=== PATIENT | female | born 1940 | race Caucasian/White ===

== ENCOUNTER 2018-01-06 10:36 | Day surgery (SDC) | payer MEDICARE ==
[2017-12-30 12:36] VITALS: BMI 36.6
[~2018-01-06 10:36] MED LIST: LACTATED RINGERS 1,000 ML IV SCH; MOXIFLOXACIN HCL 0.5% DROPS 3 ML BTL OP ONE; TETRACAINE 0.5% OPHTH (PF) DROPS 4 ML BTL OP ONE; TIMOLOL 0.5% OPHTH DROPS 5 ML BTL OP ONE
[2018-01-06] MEDS: CYCLOPENTOLATE 1% OPHTH SOLN 2 ML BTL OP ONE ×3 (12:24→12:40)
[2018-01-06 12:26] VITALS: TEMP 97.6
[2018-01-06] MEDS: PHENYLEPHRINE 2.5% OPHTH DRP 2ML OP NR ×3 (12:27→12:45)
[2018-01-06] MEDS ORDERED: LIDOCAINE 1% 20 ML VIAL (10MG/ML) FOR IV START INTRADERMA ONE (12:29)
[2018-01-06] MEDS ORDERED: DUOVISC KIT (GREEN BOX) INTRAOCULA ONE (13:02)
[2018-01-06] MEDS ORDERED: LIDOCAINE 1% (PF) 10MG/ML VIAL SQ ONE (13:02)
[2018-01-06] MEDS ORDERED: fentaNYL (PF) 50 MCG/ML 2 ML AMP ONE (13:07)
[2018-01-06] MEDS ORDERED: MIDAZOLAM 2 MG/2 ML VIAL ONE (13:07)
[2018-01-06] MEDS ORDERED: EPINEPHrine (PF) 0.3 ML in BALANCED SALT IRRIG SOLN COMB2 500 ML IRRIGATION ONE (13:17)
--- NOTE | 2018-01-06 13:37 | P.OP ---
Date of Procedure: 01/06/18 Preoperative Diagnosis: NS & POAG moderate Postoperative Diagnosis: same Procedure(s) Performed: PIOL & iStent implant OD Implants: PCB00 23.00 & [id number] Anesthesia: MAC Surgeon: Hao Trivedi Estimated Blood Loss (ml): 0 Pathology: none sent Condition: stable Disposition: same day Indications for Procedure: blurry vision and glaucoma Operative Findings: No complications
[2018-01-06 13:49] VITALS: BP 149/86; PULSE 79; RESP 16
--- NOTE | 2018-01-06 20:13 | OP ---
OPERATIVE REPORT DATE OF SURGERY: 06 January 2018. PROCEDURES: Phacoemulsification of cataract and intraocular lens implant of the right eye with an eye stent implantation of the right eye. PREOPERATIVE DIAGNOSES: 1. Nuclear sclerosis. 2. Primary open-angle glaucoma, moderate stage. POSTOPERATIVE DIAGNOSES: 1. Nuclear sclerosis. 2. Primary open-angle glaucoma, moderate stage. SURGEONS: Dr. Hao Trivedi. ANESTHESIA: Topical. ESTIMATED BLOOD LOSS: None. SPECIMEN TAKEN: None. NARRATIVE: After obtaining the appropriate consent, the patient was brought to the operating room. There she was placed on a alarm security or surveillance monitor and prepped and draped in the usual sterile manner. She was approached from her right temporal side and at the 11 o'clock position an MVR blade was used to create a paracentesis port. Through this opening 1% Xylocaine MPF 50:50 mix with balanced salt solution was injected into the anterior chamber. This was followed by stabilization of the anterior chamber with Viscoat. At the 9 o'clock position. A 2.5 mm keratome was used to create a self-sealing corneal flap incision in a Langerman's fashion. The patient was rotated to her left approximately 45 degrees and she was asked to maintain her gaze in that direction. Gonial prism was placed on the patient's cornea and the trabecular meshwork was easily identified. A GlaSykioos model DTS 100 mL eye stent device was passed across the anterior chamber and implanted in the nasal trabecular meshwork. A small amount of blood refluxed from the drainage device as expected. She was then returned to the normal supine position and a cystotome was used to start a continuous tear capsulorrhexis which was completed using the Utrata forceps. Hydrodissection and hydrodelineation of the lens was accomplished with balanced salt solution. Phacoemulsification lens utilizing phaco chop was accomplished in 19.62 seconds at 13% power. Additional Xylocaine MPF was instilled into the anterior chamber. This was followed by removal of the remaining cortex under irrigation aspiration along with careful polishing of the capsule in the capsule vacuum mode. Provisc was then used to stabilize the capsular bag in the anterior chamber and an LEONARDO PCP00 23.0 diopter posterior chamber intraocular lens was then inserted into the capsular bag without difficulty. The remaining viscoelastic was removed from in and around the intra-ocular lens as well as the anterior chamber. The eye was brought to normal intraocular pressure through the paracentesis port with balanced salt solution and the incisions were confirmed watertight. She then received 2 drops of 0.5% timolol followed by 2 drops of moxifloxacin was then lightly patched and shielded in the usual manner. There were no complications from the procedure. She tolerated the procedure well and was returned to outpatient recovery in good condition. MMPREETHI / CAROLYNNN: [id number] /
== END 2018-01-06 14:18 | disposition home or self-care (01) ==
LOC: OR 10:36
PROVIDERS: ATTEND Ophthalmology
DX: H25.13 Age-related nuclear cataract, bilateral (principal); H40.1132 Primary open-angle glaucoma, bilateral, moderate stage; H40.011 Open angle with borderline findings, low risk, right eye; H00.026 Hordeolum internum left eye, unspecified eyelid; H00.023 Hordeolum internum right eye, unspecified eyelid; H52.13 Myopia, bilateral; H52.4 Presbyopia; M19.90 Unspecified osteoarthritis, unspecified site; E07.9 Disorder of thyroid, unspecified; Z85.820 Personal history of malignant melanoma of skin; Z79.890 Hormone replacement therapy; Z79.899 Other long term (current) drug therapy; E66.9 Obesity, unspecified; Z68.36 Body mass index [BMI] 36.0-36.9, adult
CPT/HCPCS: 66984; C1780; C1783; J2250; J0171; J3010; J2001

== ENCOUNTER 2018-01-27 07:09 | Day surgery (SDC) | payer MEDICARE ==
[2018-01-20 14:56] VITALS: BMI 36.6
[~2018-01-27 07:09] MED LIST changes: +HYDROmorphone 1 MG/ML 1 ML SYRINGE IVP PRN; -MOXIFLOXACIN HCL 0.5% DROPS 3 ML BTL OP ONE; -TIMOLOL 0.5% OPHTH DROPS 5 ML BTL OP ONE
[2018-01-27] MEDS: CYCLOPENTOLATE 1% OPHTH SOLN 2 ML BTL OP ONE ×3 (07:47→08:03)
[2018-01-27] MEDS: PHENYLEPHRINE 2.5% OPHTH DRP 2ML OP NR ×3 (07:50→08:07)
[2018-01-27 07:56] VITALS: RESP 16; TEMP 98.5
[2018-01-27] MEDS ORDERED: LIDOCAINE 1% 20 ML VIAL (10MG/ML) FOR IV START INTRADERMA ONE (07:58)
[2018-01-27] MEDS ORDERED: MIDAZOLAM 2 MG/2 ML VIAL ONE (08:54)
[2018-01-27] MEDS ORDERED: fentaNYL (PF) 50 MCG/ML 2 ML AMP ONE (08:54)
[2018-01-27] MEDS ORDERED: EPINEPHrine (PF) 0.3 ML in BALANCED SALT IRRIG SOLN COMB2 500 ML IRRIGATION ONE (08:57)
[2018-01-27] MEDS ORDERED: BALANCED SALT IRRIG SOLN COMB2 15 ML IRRIG.SOLN IRRIGATION ONE ×2 (08:58→09:04)
[2018-01-27] MEDS ORDERED: LIDOCAINE 1% (PF) 10MG/ML VIAL MISCELLANE ONE ×2 (08:59→09:04)
[2018-01-27] MEDS: TIMOLOL 0.5% OPHTH DROPS 5 ML BTL OP ONE ×2 (08:59→09:04)
[2018-01-27] MEDS ORDERED: DUOVISC KIT (GREEN BOX) INTRAOCULA ONE ×2 (08:59→09:04)
[2018-01-27] MEDS: MOXIFLOXACIN HCL 0.5% DROPS 3 ML BTL OP ONE ×2 (09:00→09:04)
[2018-01-27 09:33] VITALS: BP 136/80
[2018-01-27 09:54] VITALS: PULSE 83
--- NOTE | 2018-01-27 10:03 | P.OP ---
Date of Procedure: 01/27/18 Preoperative Diagnosis: NS & POAG moderate stage Postoperative Diagnosis: same Procedure(s) Performed: PIOL & iStent implant OS Implants: PCB00 22.50 & [id number] Anesthesia: MAC Surgeon: Hao Trivedi Estimated Blood Loss (ml): 0 Pathology: none sent Condition: stable Disposition: same day Indications for Procedure: blurry vision Operative Findings: no complications
--- NOTE | 2018-01-27 16:11 | OP ---
OPERATIVE REPORT DATE OF SURGERY: January 27, 2018. PROCEDURE PERFORMED: Phacoemulsification of cataract and intraocular lens implant of the left eye with eye stent implantation, left eye. PREOPERATIVE DIAGNOSES: Nuclear sclerosis with primary open-angle glaucoma, moderate stage. POSTOPERATIVE DIAGNOSES: Nuclear sclerosis with primary open angle glaucoma, moderate stage. SURGEON: Dr. Hao Trivedi. ANESTHESIA: Topical. ESTIMATED BLOOD LOSS: Less than 5 mL. SPECIMEN: Taken none. NARRATIVE: After obtaining the appropriate consent, the patient was brought to the operating room. There she was placed under cardiac monitoring, prepped and draped in the usual sterile manner. She was approached from her left temporal side and at the 5 o'clock position an MVR blade was used to create a paracentesis port. Through this opening, 1% Xylocaine MPF 50 50 mix of balanced salt solution was injected into the anterior chamber. This was followed by stabilization of the anterior chamber with Viscoat. At the 3 o'clock position, a 2.5 mm keratome was used to create a self-sealing corneal flap incision in a Langerman's fashion. Small amount of Viscoat was also placed on the patient's cornea. The patient was then asked to rotate her head approximately 45 degrees to her right to maintain a steady gaze in that direction. A gonio prism was placed on the patient's eye and the trabecular meshwork was easily identified. A Gla[employer]os eye stent model GTS 100 mL was passed across the anterior chamber and imbedded in the nasal trabecular meshwork without difficulty. She was then rotated back to the normal supine position and a cystotome was used to start a continuous tear capsulorrhexis which was then completed using the Utrata forceps. Hydrodissection and hydrodelineation of the lens was accomplished with balanced salt solution. Phacoemulsification lens utilizing phaco chop was accomplished in 16.48 seconds at 13% power. Additional Xylocaine MPF was instilled into the anterior chamber. This was followed by removal of the remaining cortex under irrigation and aspiration as well as careful polishing of the posterior capsule in the capsule vacuum mode. Provisc was then used to stabilize the capsular bag and an LEONARDO PCB 0 0 22.5 diopter posterior chamber intraocular lens was then injected into the capsular bag without difficulty. The remaining viscoelastic was then removed from in and around the intra-ocular lens as well as the anterior chamber. The eye was brought to normal intraocular pressures through the paracentesis port. The wounds were hydrated with balanced salt solution and she then received 2 drops of moxifloxacin as well as 0.5% timolol. She was then lightly patched and shielded in the usual manner. There were no complications from the procedure. She tolerated the procedure well, was returned to outpatient recovery in good condition. RABIA / CAROLYNNN: [id number] /
== END 2018-01-27 10:20 | disposition home or self-care (01) ==
LOC: OR 07:09
PROVIDERS: ATTEND Ophthalmology
DX: H25.12 Age-related nuclear cataract, left eye (principal); H40.1132 Primary open-angle glaucoma, bilateral, moderate stage; Z96.1 Presence of intraocular lens; H00.026 Hordeolum internum left eye, unspecified eyelid; H00.023 Hordeolum internum right eye, unspecified eyelid; H52.10 Myopia, unspecified eye; H52.4 Presbyopia; J45.909 Unspecified asthma, uncomplicated; E78.5 Hyperlipidemia, unspecified; E07.9 Disorder of thyroid, unspecified; Z85.820 Personal history of malignant melanoma of skin; Z85.828 Personal history of other malignant neoplasm of skin; Z79.890 Hormone replacement therapy; Z79.899 Other long term (current) drug therapy; Z79.1 Long term (current) use of non-steroidal anti-inflammatories (NSAID); Z79.51 Long term (current) use of inhaled steroids
CPT/HCPCS: 0191T; 66984

== ENCOUNTER → 2018-04-19 | Outpatient (CLI) | payer MEDICARE ==
[2018-04-19 17:11] LABS: Basophils # (A) 0.1 k/uL (0-0.2); Basophils % (A) 1 %; Eosinophils # (A) 0.3 k/uL (0-0.7); Eosinophils % (A) 3 %; HCT 41.8 % (34.0-46.0); HGB 13.7 gm/dL (11.4-16.0); Lymphocytes # (A) 1.3 k/uL (1.0-4.8); Lymphocytes % (A) 11 %; MCH 32.4 pg (25.0-35.0); MCHC 32.8 g/dL (31.0-37.0); MCV 98.6 fL (80.0-100.0); Mean Platelet Volume 7.7; Monocytes # (A) 0.9 k/uL (0-1.0); Monocytes % (A) 7 %; Neutrophils # (A) 9.6 k/uL (1.3-7.7); Neutrophils % (A) 78 %; Platelet Count 226 k/uL (150-450); RBC 4.24 m/uL (3.80-5.40); RDW 13.9 % (11.5-15.5); WBC 12.4 k/uL (3.8-10.6)
== END | disposition home or self-care (01) ==
LOC: LABPAT 16:40
PROVIDERS: ATTEND Obstetrics & Gynecology
DX: Z01.818 Encounter for other preprocedural examination (principal); Z78.0 Asymptomatic menopausal state
CPT/HCPCS: 36415; 85025; 93005

== ENCOUNTER 2018-05-03 08:57 | Day surgery (SDC) | payer MEDICARE ==
[2018-04-23 12:08] VITALS: BMI 37.5
--- NOTE | 2018-04-26 09:11 | HP ---
HISTORY AND PHYSICAL H and P for surgery tomorrow on the . This is a 77-year-old white female 4, para 4-0-0-4, who presents with postmenopausal bleeding. The patient reports somewhat heavy vaginal bleeding containing clots for approximately 5 days. She has had endometrial evaluation for this condition in the past, Pathology returning weakly proliferative tissue with focal disorder. She has been treated with cyclic progesterone, Prometrium 200 mg, 2 weeks on 2 weeks off. The bleeding however has reoccurred, and for this reason, we are electing to proceed with hysteroscopy and D and C. REVIEW OF SYSTEMS: Review of systems is otherwise negative. PAST MEDICAL HISTORY: Past medical history is significant for asthma, melanoma, postmenopausal bleeding for approximately 5 years and hypertension. PAST SURGICAL HISTORY: Office endometrial biopsies, hysteroscopy, D and C, melanoma excision, and knee surgery. CURRENT MEDICATIONS: 1. Benadryl 25 mg at night. 2. Ibuprofen twice daily as needed. 3. Levothyroxine 50 mcg daily. 4. Lovastatin 20 mg with her evening meal. 5. Mevacor daily. 6. Vitamin D daily. 7. Zyrtec 10 mg as needed. ALLERGIES: Allergies include LIPITOR to which she reports muscle pain. FAMILY HISTORY: Family history is significant for colon cancer, breast cancer, mitral valve prolapse. REPRODUCTIVE HISTORY: Significant for normal spontaneous vaginal deliveries x4, unremarkable with healthy children. SOCIAL HISTORY: Patient drinks social alcohol. She is a former tobacco smoker. She denies other drug use. PHYSICAL EXAMINATION: On exam, this is a pleasant white female, 212 pounds, 5 feet 1 inch, BMI 40. Blood pressure 132/84. HEENT exam reveals reasonably good dentition, no thyromegaly, no cervical lymphadenopathy. Breasts are symmetric bilaterally, no obvious lesions, masses, defects, or nipple discharge. Chest is clear to auscultation in all robertson anteriorly and posteriorly. Cardiac exam reveals a regular rate and rhythm with no murmur, click, or rub. Abdomen is soft, nontender, no organosplenomegaly, active bowel sounds. No CVA tenderness. Extremities reveal 2+ reflexes bilaterally, reasonably good range of motion. Pelvic exam reveals atrophic cervix, small anteverted anteflexed uterus, negative adnexa bilaterally. IMPRESSION: Postmenopausal bleeding with a long history of same. PLAN: We will proceed with diagnostic hysteroscopy, D and C of the uterine cavity. All questions answered. Risks of bleeding, infection, perforation or damage to bowel, bladder, ureters, or any pelvic or abdominal organs have all been reviewed. Second opinion offered and declined. MMODL / IJN: [id number] /
[~2018-05-03 08:57] MED LIST changes: +DEXAMETHASONE SOD PHOSPHATE 10 MG/ML 1 ML VIAL IV ONE; +HYDROmorphone 0.5 MG/0.5 ML SYRINGE IVP PRN; -HYDROmorphone 1 MG/ML 1 ML SYRINGE IVP PRN; +MIDAZOLAM (PF) 2 MG/2 ML VIAL IV PRN; +ONDANSETRON 4 MG/2 ML VIAL IVP ONE; +Pre Op ABX Message 1 EACH MISC MISCELLANE ONE; -TETRACAINE 0.5% OPHTH (PF) DROPS 4 ML BTL OP ONE; +ceFAZolin IN SWFI 2 GM/20 ML SYRINGE IVP ONE
[2018-05-03] MEDS ORDERED: fentaNYL (PF) 50 MCG/ML 2 ML AMP ONE (10:33)
[2018-05-03] MEDS ORDERED: MIDAZOLAM 2 MG/2 ML VIAL ONE (10:33)
[2018-05-03] MEDS ORDERED: LIDOCAINE 1% INJ 10MG/ML (20 ML MDV) ONE (10:33)
[2018-05-03] MEDS ORDERED: ACETAMINOPHEN IV (For NPO) 1,000 MG/100 ML VIAL ONE (10:33)
[2018-05-03] MEDS ORDERED: PROPOFOL 10 MG/ML 20 ML VIAL IV ONE (10:33)
--- NOTE | 2018-05-03 10:55 | P.OP ---
Date of Procedure: 05/03/18 Preoperative Diagnosis: Postmenopausal bleeding, thickened endometrium sonographically Postoperative Diagnosis: Endometrial polyp, final pathology pending. Grade 2 rectocele. Procedure(s) Performed: Hysteroscopy, dilatation and curettage of the uterine cavity Anesthesia: ANGELICA Surgeon: Macie Cadet Estimated Blood Loss (ml): 5 IV fluids (ml): 300 Urine output (ml): 100 Pathology: other (Endometrial curettings) Condition: stable Disposition: PACU Indications for Procedure: Postmenopausal bleeding, endometrium thickened on sonographic evaluation Description of Procedure: Patient is brought to the operating suite and placed in the dorsal lithotomy position after general anesthetic is administered. The cervix, vagina, perineal bodies are all prepped and draped in the usual sterile fashion. The appropriate timeout is performed to assure proper patient and procedural identification. Antibiotics are not deemed necessary. Bladder is drained with a red New catheter for approximately 100 mL of clear yellow urine. Speculum was placed into the vagina and the anterior lip of the cervix is grasped with a double-tooth tenaculum. Uterus sounds to a depth of 9 cm in the anteverted position. The cervix is gently and systematically dilated with Hanks dilators. The hysteroscope was placed and the cavity is distended with sterile saline. Inspection of the cavity reveals an endometrial polyp at 12 o'clock. Bilateral ostia are negative. Hysteroscope was removed. A medium sharp curette is used and the cavity is thoroughly and systematically curettaged. A small polyp is noted and sent to pathology for evaluation. The hysteroscope was once again introduced and the cavity is noted to be clean and dry. All sponge needle and enhancement counts are correct. All sponge needle and enhancement counts are correct at the end of the procedure. O firm it is given to aid in postoperative analgesia. Patient is brought back to recovery room in very good condition with stable vital signs including a pulse of 80, blood pressure 129/67. She will follow-up with me in the office in 2 weeks.
[2018-05-03 11:24] VITALS: TEMP 97.7
[2018-05-03 12:32] VITALS: BP 116/63; PULSE 90; RESP 20
== END 2018-05-03 12:53 | disposition home or self-care (01) ==
LOC: OR 08:57
PROVIDERS: ATTEND Obstetrics & Gynecology
DX: N84.0 Polyp of corpus uteri (principal); N81.6 Rectocele; J45.909 Unspecified asthma, uncomplicated; I10 Essential (primary) hypertension; E07.9 Disorder of thyroid, unspecified; M19.90 Unspecified osteoarthritis, unspecified site; Z79.890 Hormone replacement therapy; Z79.899 Other long term (current) drug therapy; Z79.51 Long term (current) use of inhaled steroids; Z88.8 Allergy status to other drugs, medicaments and biological substances; Z85.820 Personal history of malignant melanoma of skin; Z85.3 Personal history of malignant neoplasm of breast; Z87.891 Personal history of nicotine dependence
CPT/HCPCS: 88305; 58558; J2250; J1100; J2405; J2001; J3010; J2704

== ENCOUNTER → 2018-07-15 | Outpatient (CLI) | payer MEDICARE ==
[2018-07-15 16:52] LABS: HCT 41.6 % (34.0-46.0); HGB 13.3 gm/dL (11.4-16.0); MCH 31.2 pg (25.0-35.0); MCHC 31.8 g/dL (31.0-37.0); Mean Platelet Volume 7.9; Platelet Count 258 k/uL (150-450); RBC 4.25 m/uL (3.80-5.40); RDW 14.2 % (11.5-15.5); WBC 8.9 k/uL (3.8-10.6)
[2018-07-15 16:54] LABS: Appearance,Urine Cloudy (Clear); Bilirubin,Urine Negative (Negative); Blood,Urine Large (Negative); Color,Urine Yellow; Glucose,Urine (UA) Negative (Negative); Ketones,Urine 1+ (Negative); Leukocyte Esterase,Urine Small (Negative); Mucus,Urine Rare /hpf; Nitrite,Urine Negative (Negative); PH, Urine 5.5 (5.0-8.0); Protein,Urine 1+ (Negative); RBC,Urine 41 /hpf (0-5); Specific Gravity,Urine 1.028 (1.001-1.035); Squamous Epithelial Cell,Urine 7 /hpf (0-4); WBC,Urine 3 /hpf (0-5)
[2018-07-15 16:59] LABS: INR 0.9 (<1.2); Partial Thromboplastin Time 23.1 sec (22.0-30.0); Potassium 4.4 mmol/L (3.5-5.1); Prothrombin Time 10.1 sec (9.0-12.0)
== END ==
LOC: LABPAT 15:38
PROVIDERS: ATTEND Orthopaedic Surgery
DX: Z01.812 Encounter for preprocedural laboratory examination (principal); I77.1 Stricture of artery
CPT/HCPCS: 36415; 80051; 81001; 82565; 84520; 85027; 85610; 85730; 87070

== ENCOUNTER 2018-07-26 07:00 | Inpatient (IN) | payer MEDICARE ==
[2018-07-19 11:43] VITALS: BMI 37.1
[2018-07-27] MEDS ORDERED: ceFAZolin IN SWFI 2 GM/20 ML SYRINGE IVP ONE (05:00)
[2018-07-27] MEDS ORDERED: ACETAMINOPHEN TAB 500 MG TAB PO ONE (05:00)
[2018-07-27] MEDS ORDERED: MELOXICAM 7.5 MG TAB PO ONE (05:00)
[2018-07-27] MEDS ORDERED: TRANEXAMIC ACID 1,000 MG in SODIUM CHLORIDE 0.9% 100 ML IVPB ONE ×4 (05:00)
[2018-07-27] MEDS ORDERED: ONDANSETRON 4 MG/2 ML VIAL IVP ONE (05:16)
[2018-07-27] MEDS ORDERED: SCOPOLAMINE 1.5MG/72HR PATCH TRANSDERM ONE (05:16)
[2018-07-27] MEDS ORDERED: HYDROmorphone 0.5 MG/0.5 ML SYRINGE IVP PRN ×4 (05:16→11:19)
[2018-07-27] MEDS ORDERED: DEXAMETHASONE SOD PHOSPHATE 10 MG/ML 1 ML VIAL IV ONE (05:16)
[2018-07-27] MEDS ORDERED: MIDAZOLAM 2 MG/2 ML VIAL IV PRN (05:16)
[2018-07-27] MEDS ORDERED: LIDOCAINE 1% 20 ML VIAL (10MG/ML) FOR IV START INTRADERMA PRN (05:16)
[2018-07-27] MEDS ORDERED: ROPIVACAINE 246.25 MG, EPINEPHrine 0.5 MG, KETOROLAC 30 MG, cloNIDine HCL/PF 80 MCG, WA... MISCELLANE ONE ×5 (06:00)
[2018-07-27] MEDS: LACTATED RINGERS 1,000 ML IV SCH ×3 (08:02→22:23)
[2018-07-27] MEDS ORDERED: MIDAZOLAM (PF) 2 MG/2 ML VIAL IV ONE (08:19)
[2018-07-27] MEDS ORDERED: ROPIVACAINE 1,100 MG, SODIUM CHLORIDE 0.9% 500 ML 330 ML MISCELLANE PRN ×2 (08:47)
--- NOTE | 2018-07-27 08:49 | P.ONQ ---
Anesthesiology Proc Note - PNB - Peripheral Nerve Block Performed Left Adductor Canal Infusion Time Out Performed: Yes Procedure Start Time: :21 Procedure Stop Time: :32 Indication: Acute Post-Operative Pain, Requested by physician Sedation Type: Sedate with meaningful contact maintained Preparation: Sterile Dressing Position: Supine Catheter: Indwelling Needle Types: On-Q Needle Size: 100mm (4") Needle Gauge: 21 Technique: Ultrasound (ropi .5% 20cc) Blood Aspirated: No Pain Paresthesia on Injection Noted: No Resistance on Injection: Normal Events: Uneventful and Well Tolerated
[2018-07-27] MEDS ORDERED: TRANEXAMIC ACID 1,000 MG/10 ML VIAL ONE (09:30)
[2018-07-27] MEDS ORDERED: SODIUM CHLORIDE 0.9% 100 ML BAG ONE (09:30)
[2018-07-27] MEDS ORDERED: GLYCOPYRROLATE 0.2 MG/ML 2 ML VIAL ONE (09:30)
[2018-07-27] MEDS ORDERED: PROPOFOL 10 MG/ML 20 ML VIAL IV ONE (09:30)
[2018-07-27] MEDS ORDERED: MIDAZOLAM 2 MG/2 ML VIAL ONE (09:30)
[2018-07-27] MEDS ORDERED: diphenhydrAMINE 50 MG/ML 1 ML VIAL ONE (09:30)
[2018-07-27] MEDS ORDERED: fentaNYL (PF) 50 MCG/ML 2 ML AMP ONE (09:30)
[2018-07-27] MEDS ORDERED: KETAMINE 10 MG/ML 20 ML VIAL ONE (09:30)
[2018-07-27] MEDS ORDERED: ceFAZolin 3,000 MG in SODIUM CHLORIDE 0.9% IRRIGATIO 3,000 ML IRRIGATION ONE (09:35)
[2018-07-27] MEDS ORDERED: LACTATED RINGERS 1,000 ML IV ONE (10:52)
--- NOTE | 2018-07-27 11:02 | P.OP ---
Date of Procedure: 07/27/18 Preoperative Diagnosis: Severe osteoarthritis left knee Postoperative Diagnosis: Severe osteoarthritis left knee Procedure(s) Performed: Left total knee arthroplasty Implants: Rob and Nephew Journey II CR Oxinium cruciate retaining femoral component size 5, left Rob & Nephew Journey left nonporous tibial baseplate size 4 Rob [employer] Nephew Journey II, XLPE Deep Dished articular insert, size 9 mm, Size 3- 4 left Rob & Nephew Journey BCS resurfacing oval patellar component, 29 mm All components were cemented using Palacos R bone cement.. The articulation is Oxinium on polyethylene. Anesthesia: spinal Surgeon: Edilberto Munguia Clothing Designer #1: Tessie Rodriguez Estimated Blood Loss (ml): 25 Pathology: other (Bone and cartilage) Condition: stable Disposition: PACU Indications for Procedure: After failure of conservative treatment we discussed the surgical and nonsurgical treatment options at length. Patient wishes to proceed with a total knee arthroplasty. Complications specific to this procedure were discussed at length, including but not limited to infection, bleeding, stiffness, and nerve injury. Patient is aware of all these complications and informed consent was obtained Operative Findings: The operative findings are consistent with severe osteoarthritis of the left knee Description of Procedure: Patient was seen in the preoperative area consent was reviewed and operative site was marked with a skin marker. An adductor canal pain catheter was placed by anesthesia in the preoperative area. Patient was then brought to the operating room and given preoperative antibiotics intravenously. A spinal anesthetic was administered by the anesthesia department. A tourniquet was placed on the upper thigh and the lower extremity was prepped and draped in usual sterile fashion. A gram of transexamic acid was given. A universal timeout was then performed which confirmed the patient's name, surgical site, ALLERGIES, and consent. The lower extremity was then exsanguinated and tourniquet was inflated to 250 mmHg. A standard and anterior midline approach to the knee was performed. The skin and subcutaneous tissue was dissected down to the patellar tendon. A medial parapatellar arthrotomy was then performed. The knee was then extended, the patellar was everted, and the knee was again flexed. Anterior horns of both menisci were excised, and a release was performed to the posterior medial aspect of the knee. On gross visual inspection, there was complete loss of articular cartilage in the medial and patellofemoral joint spaces. There was also significant cartilage damage in the lateral compartment. There were multiple periarticular osteophytes which were then removed with a Ronguer. The femoral canal was then opened with the appropriate drill, and the intramedullary femoral cutting guide was then placed and set for 5 of valgus. The distal femoral cutting block was then pinned in place, and the distal femur was then cut. The cutting block was then removed and the cut was checked for flatness. Next, the sizing guide was then placed and set for 3 external rotation based off of the epicondylar axis and Whitesides line. After the femur was sized, the appropriate 4-in-1 cutting block was then pinned in place. The anterior condyles were cut without notching. The posterior and chamfer cuts were performed while protecting the collateral ligaments. The cutting block was then removed, and the femoral canal was plugged with autologous bone. Attention was then directed to the tibia. The remaining ACL was removed with a Ronguer, and the tibia was then gently subluxed forward with a large bent knee retractor. Any remaining menisci was excised. The posterior lateral corner was cauterized in order to cauterize the lateral geniculate artery. The extra medullary tibial cutting guide was then placed, set for the appropriate rotation, slope, and depth of resection. The proximal tibia cutting guide was then pinned in place. Proximal tibia was then cut and sized. Next trials were then placed with the appropriate-sized insert. The knee was able to fully extend and flex to 130 and was stable throughout all range of motion. The knee was then extended, patella everted. Patella was then measured, and then using an osteotomy guide, the patella was cut at the appropriate level. The patella was then measured and drilled and the patella trial was then placed. The knee was then taken through range of motion with the patella trial and the patella tracked normally. The knee was then extended patella trial was then removed and the patella was everted. Knee was then flexed and lug holes were drilled through the femoral trial and the femoral trial was then removed. The tibial was then exposed, and the tibial broach guide was then pinned in place after it was set for the appropriate rotation to allow for the most coverage without overhang. The tibia was then reamed and broached. The cut surfaces of bone were then irrigated with pulsatile lavage. The posterior structures were injected with the ropivacaine solution. The knee was also irrigated with Irrisept solution. The components were then opened, the cement was mixed, and the components were then cemented in place. The cement was allowed to harden with the knee in full extension. While the cement was hardening, the remaining soft tissues were then injected with a ropivacaine solution, which consisted of 246.25 mg of ropivacaine, 0.5 mg of epinephrine, 30 mg of Toradol, 80 g of clonidine, and 48.45 mL of sterile water, for a total of 100 mL of fluid injected. After the cemented hardened. The tourniquet was released, and hemostasis was obtained. A second gram of transexamic acid was given. The knee was again irrigated. The knee was again taken through range of motion and found to be stable throughout all range of motion of 0-130, and the patella tracked normally. The fascia was then closed with #2 strata fix suture. The subcutaneous tissue was closed with 3-0 Vicryl and 3-0 strata fix. Dermabond glue was used for the skin and placed with the knee in flexion. The patient was placed in a sterile silver dressing. Patient was then transferred to recovery room in stable condition. The treasury assistant Tessie Rodriguez NP was required due the complexity surgery and the need for a skilled regional vice president surgical sales. She assisted in positioning, draping, retraction, and closure of the wound.
[2018-07-27] MEDS ORDERED: hydrOXYzine PAMOATE 25 MG CAP PO PRN (11:19)
[2018-07-27] MEDS ORDERED: MAGNESIUM HYDROXIDE 2,400 MG/10 ML CUP PO PRN (11:19)
[2018-07-27] MEDS ORDERED: ONDANSETRON 4 MG/2 ML VIAL IVP PRN (11:19)
[2018-07-27] MEDS ORDERED: HYDROcodone/APAP 5-325MG 1 EACH TAB PO PRN (11:19)
[2018-07-27] MEDS ORDERED: BISACODYL 10 MG SUPP RECTAL PRN (11:19)
[2018-07-27] MEDS ORDERED: TEMAZEPAM 15 MG CAP PO PRN (11:19)
[2018-07-27] MEDS ORDERED: NALOXONE 0.4 MG/ML 1 ML VIAL IV PRN (11:19)
--- NOTE | 2018-07-27 12:10 | XR ---
EXAMINATION TYPE: XR knee limited LT DATE OF EXAM: 07/27/2018 COMPARISON: NONE HISTORY: 77-year-old female evaluation for postoperative abnormality and alignment TECHNIQUE: 2 views FINDINGS: Images show placement of left total knee arthroplasty. Both distal femoral and proximal tibial compon ents of the prosthesis are well seated without periprosthetic fracture. Alignment grossly anatomic. A nterior soft tissue swelling as well as intra-articular air and joint effusion compatible with recent operation. IMPRESSION: Uncomplicated postoperative appearance left total knee arthroplasty.
[2018-07-27] MEDS: HYDROcodone/APAP 5-325MG 1 EACH TAB PO PRN ×2 (16:03→20:11)
[2018-07-27] MEDS: ceFAZolin IN SWFI 2 GM/20 ML SYRINGE IVP SCH (18:17)
[2018-07-27] MEDS ORDERED: SENNOSIDES-DOCUSATE SODIUM 1 EACH TAB PO SCH (21:00)
[2018-07-28] MEDS: HYDROcodone/APAP 5-325MG 1 EACH TAB PO PRN ×3 (01:06→09:10)
[2018-07-28] MEDS: ceFAZolin IN SWFI 2 GM/20 ML SYRINGE IVP SCH (01:07)
[2018-07-28 07:46] VITALS: BP 125/70; PULSE 86; RESP 16; TEMP 98.6
[2018-07-28 08:01] LABS: Basophils % (A) 0 %; Eosinophils % (A) 0 %; HCT 35.7 % (34.0-46.0); HGB 11.6 gm/dL (11.4-16.0); Lymphocytes # (A) 0.8 k/uL (1.0-4.8); Lymphocytes % (A) 7 %; MCH 32.2 pg (25.0-35.0); MCHC 32.5 g/dL (31.0-37.0); Mean Platelet Volume 7.9; Monocytes # (A) 0.8 k/uL (0-1.0); Monocytes % (A) 7 %; Neutrophils # (A) 9.4 k/uL (1.3-7.7); Neutrophils % (A) 85 %; Platelet Count 196 k/uL (150-450); RDW 13.8 % (11.5-15.5); WBC 11.1 k/uL (3.8-10.6)
--- NOTE | 2018-07-28 08:27 | P.DS ---
Providers Date of admission: 07/27/18 07:14 Expected date of discharge: 07/28/18 Attending physician: Edilberto Munguia Consults: 07/27/18 11:19 Consult Physician Routine Consulting Provider: Gisele Hoffmann Consult Reason/Comments: medical management Do you want consulting provider notified?: Yes 07/27/18 14:41 Consult Physician Routine Consulting Provider: Nara Martinez Consult Reason/Comments: medical management Do you want consulting provider notified?: Already Contacted Primary care physician: Gisele Hoffmann - Discharge Diagnosis(es) (1) Primary osteoarthritis of left knee Status: Acute (2) Status post left knee replacement Status: Acute (3) Hypertension Status: Acute (4) Hyperlipidemia Status: Acute (5) Asthma Status: Acute Hospital Course: This is a pleasant 77-year-old female last seen in our office with complaints of left knee pain. Patient has known history of degenerative arthritis of the left knee and presented to discuss options. After discussion and consideration, the patient elected to proceed with a left total knee arthroplasty. Patient was seen preoperatively, and medically cleared for surgery by Dr. Hoffmann. Patient was admitted to [facility] underwent left total knee arthroplasty on 07/27/[address] Edilberto Munguia. The procedure was performed without complications or sequelae. The patient is seen and evaluated at bedside today. Pain is well-controlled. Patient has no new complaints today and denies any fevers, chills, nausea, vomiting, or shortness of breath. Vital signs are stable. Dressing is clean dry and intact. Incision looks fine with no erythema or active drainage. Calf is soft and nontender. Patient has full foot and ankle motion without difficulty. Patient's left lower extremity is neurovascularly intact. The patient is orthopedically stable for discharge today. Pertinent Studies: Laboratory Tests 07/28/18 07:40 WBC 11.1 H RBC 3.60 L Hgb 11.6 Hct 35.7 Patient Condition at Discharge: Stable Plan - Discharge Summary Discharge Rx Participant: No New Discharge Prescriptions: New Aspirin 325 mg PO BID #60 tab HYDROcodone/APAP 5-325MG [[place] 5] 1 - 2 each PO Q4-6H PRN #50 tab PRN Reason: Pain Sennosides-Docusate Sodium [Senokot-S] 2 tab PO DAILY #30 tablet No Action Ibuprofen [Motrin] 200 - 400 mg PO Q6HR PRN PRN Reason: Pain Lovastatin [Mevacor] 20 mg PO DAILY Levothyroxine Sodium [Synthroid] 50 mcg PO QAM Cholecalciferol (Vitamin D3) [Vitamin D3] 2,000 unit PO DAILY diphenhydrAMINE [Benadryl] 25 mg PO HS Cetirizine HCl [Zyrtec] 10 mg PO DAILY PRN PRN Reason: Allergy Symptoms Albuterol Sulfate [Proair Hfa] 1 - 2 puff INHALATION RT-Q6H PRN PRN Reason: Shortness Of Breath Lisinopril [Zestril] 2.5 mg PO HS Ipratropium/Albuterol Sulfate [Combivent Respimat Inhaler] 1 - 2 puff INHALATION RT-QID medroxyPROGESTERone [Provera] 10 mg PO DIRECTED Discharge Medication List Ibuprofen [Motrin] 200 - 400 mg PO Q6HR PRN 12/21/13 [History] Lovastatin [Mevacor] 20 mg PO DAILY 12/21/13 [History] Levothyroxine Sodium [Synthroid] 50 mcg PO QAM 08/15/15 [History] Cetirizine HCl [Zyrtec] 10 mg PO DAILY PRN 12/30/17 [History] Cholecalciferol (Vitamin D3) [Vitamin D3] 2,000 unit PO DAILY 12/30/17 [History] diphenhydrAMINE [Benadryl] 25 mg PO HS 12/30/17 [History] Albuterol Sulfate [Proair Hfa] 1 - 2 puff INHALATION RT-Q6H PRN 04/23/18 [History] Ipratropium/Albuterol Sulfate [Combivent Respimat Inhaler] 1 - 2 puff INHALATION RT-QID 07/19/18 [History] Lisinopril [Zestril] 2.5 mg PO HS 07/19/18 [History] medroxyPROGESTERone [Provera] 10 mg PO DIRECTED 07/19/18 [History] Aspirin 325 mg PO BID #60 tab 07/28/18 [Rx] HYDROcodone/APAP 5-325MG [[place] 5] 1 - 2 each PO Q4-6H PRN #50 tab 07/28/18 [Rx] Sennosides-Docusate Sodium [Senokot-S] 2 tab PO DAILY #30 tablet 07/28/18 [Rx] Follow up Appointment(s)/Referral(s): Gisele Hoffmann DO [Primary Care Provider] - 08/04/18 11:40 am [facility], [NON-STAFF] - As Needed Edilberto Munguia DO [Doctor of Osteopathic Medicine] - 08/11/18 1:15 pm Ambulatory/Diagnostic Orders: Continuous Passive Motion (CPM) Machine [DME.AMB1] Time Frame: 3 Weeks, Location: None Selected Patient Instructions/Handouts: Revision Total Joint Arthroplasty (DC), Knee Replacement (DC) Activity/Diet/Wound Care/Special Instructions: Weightbearing as tolerated with walker Keep dressing in place for 10 days unless saturated Aspirin 325 mg twice a day May shower over dressing Follow up with Dr. Edilberto Munguia in 2 weeks. Call [facility] with questions or concerns, Discharge Disposition: HOME WITH HOME HEALTH SERVICES
--- NOTE | 2018-07-28 08:37 | P.PN ---
Progress Note - Text Progress Note Date: 07/28/18 The patient is status post[ 1] adductor canal catheter placement. The catheter was placed for postoperative pain control, status post total [left Knee] arthroplasty. Ropivacaine 0.2% is infusing at[ 10 ] mLs per hour. The patient has no complaints of[ left ] lower extremity numbness or weakness. Patient's VAS score is[ 4]-10. Assessment: Patient's adductor canal catheter is in place and working appropriately. Plan: continue infusion and adjust it as needed.
[2018-07-28] MEDS ORDERED: ASPIRIN 325 MG TAB PO SCH (09:00)
--- NOTE | 2018-07-28 10:18 | P.CONS ---
History of Present Illness - History of Present Illness This is a pleasant 77 years old female with past medical history of asthma, d iabetes, syncope, ovarian cyst, factor V laiden, chronic back pain. Presents for elective left total knee arthroplasty for her long-standing degenerative joint disease that could not be controlled by conservative medical management only. Patient already had the surgery done for her yesterday. Today is postop day #1. Patient is doing well with no chest pain or dyspnea. She says that pain at the surgical site is controlled. No abdominal pain no nausea vomiting. Patient tolerated her breakfast this morning well. She has regular bowel movements. No urinary complaints. No dizziness or abnormal movements. Vitals look stable and patient is afebrile. Labs showing mild leukocytosis of 11.1 K. However patient denies any symptoms. Hemoglobin is a stable wound with an normal limits at 11.6. No other labs done during this admission. Review of Systems CONSTITUTIONAL: No fever, no malaise, no fatigue. HEENT: No recent visual problems or hearing problems. Denied any sore throat. CARDIOVASCULAR: No orthopnea, PND, no palpitations, no syncope. PULMONARY: No shortness of breath, no cough, no hemoptysis. GASTROINTESTINAL: No diarrhea, no nausea, no vomiting, no abdominal pain. Normoactive bowel sounds. NEUROLOGICAL: No headaches, no weakness, no numbness. HEMATOLOGICAL: Denies any bleeding or petechiae. GENITOURINARY: Denies any burning micturition, frequency, or urgency. MUSCULOSKELETAL/RHEUMATOLOGICAL: Denies any joint pain, swelling, or any muscle pain. ENDOCRINE: Denies any polyuria or polydipsia. ROS unobtainable: due to endotracheal tube Past Medical History Past Medical History: Asthma, Cancer, Eye Disorder, Hyperlipidemia, Hypertension, Osteoarthritis (OA), Respiratory Disorder, Skin Disorder, Thyroid Disorder Additional Past Medical History / Comment(s): HX CHILDHOOD ASTHMA., MELANOMA., COLON POLYPS., STATES NEW DX OF ASTHMATIC BRONCHITIS., GLAUCOMA,very dry skin History of Any Multi-Drug Resistant Organisms: None Reported Past Surgical History: Orthopedic Surgery, Tubal Ligation Additional Past Surgical History / Comment(s): REMOVAL OF MELANOMA RIGHT LEG., D&C x2, LT KNEE ARTHROSCOPY,Dann CATARACT WITH STENTS Past Anesthesia/Blood Transfusion Reactions: No Reported Reaction Additional Past Anesthesia/Blood Transfusion Reaction / Comm: no hx blood transfusion Smoking Status: Former smoker - Past Family History Mother Family Medical History: Cancer Additional Family Medical History / Comment(s): BREAST Sister(s) Family Medical History: Cancer Additional Family Medical History / Comment(s): BREAST Father Family Medical History: Cancer Additional Family Medical History / Comment(s): COLON Medications and Allergies Home Medications Medication Instructions Recorded Confirmed Type Ibuprofen [Motrin] 200 - 400 mg PO Q6HR PRN 12/21/13 07/27/18 History Lovastatin [Mevacor] 20 mg PO DAILY 12/21/13 07/27/18 History Levothyroxine Sodium [Synthroid] 50 mcg PO QAM 08/15/15 07/27/18 History Cetirizine HCl [Zyrtec] 10 mg PO DAILY PRN 12/30/17 07/27/18 History Cholecalciferol (Vitamin D3) 2,000 unit PO DAILY 12/30/17 07/27/18 History [Vitamin D3] diphenhydrAMINE [Benadryl] 25 mg PO HS 12/30/17 07/27/18 History Albuterol Sulfate [Proair Hfa] 1 - 2 puff INHALATION RT-Q6H PRN 04/23/18 07/27/18 History Ipratropium/Albuterol Sulfate 1 - 2 puff INHALATION RT-QID 07/19/18 07/27/18 History [Combivent Respimat Inhaler] Lisinopril [Zestril] 2.5 mg PO HS 07/19/18 07/27/18 History medroxyPROGESTERone [Provera] 10 mg PO DIRECTED 07/19/18 07/27/18 History Aspirin 325 mg PO BID #60 tab 07/28/18 Rx HYDROcodone/APAP 5-325MG [Nezperce 5] 1 - 2 each PO Q4-6H PRN #50 tab 07/28/18 Rx Sennosides-Docusate Sodium 2 tab PO DAILY #30 tablet 07/28/18 Rx [Senokot-S] Allergies Allergy/AdvReac Type Severity Reaction Status Date / Time No Known Allergies Allergy Verified 07/27/18 14:27 Physical Exam Vitals: Vital Signs Temp Pulse Pulse Resp BP Pulse Ox 07/28/18 08:16 86 16 07/28/18 07:19 98.6 F 86 16 125/70 94 L 07/28/18 01:05 98.3 F 85 20 120/67 96 07/28/18 00:17 16 07/27/18 20:59 16 07/27/18 19:15 97.8 F 94 22 110/65 95 07/27/18 15:00 97.6 F 95 18 126/78 96 07/27/18 14:23 89 18 118/61 96 07/27/18 13:48 90 16 116/75 96 07/27/18 13:30 96 18 132/77 96 07/27/18 13:15 94 18 126/66 96 07/27/18 13:00 94 16 121/66 96 07/27/18 12:45 86 18 111/64 95 07/27/18 12:33 92 16 112/56 98 07/27/18 12:00 88 16 110/56 98 07/27/18 11:47 97 16 107/53 98 07/27/18 11:30 101 H 16 118/56 97 07/27/18 11:16 97.6 F 100 25 H 111/56 96 Intake and Output 07/27/18 07/28/18 07/28/18 22:59 06:59 14:59 Intake Total 620 540 Balance 620 540 Intake: Intake, IV Titration 80 Amount Lactated Ringers 1,000 ml 80 @ 20 mls/hr IV .Q24H [facility] Rx#:[id number] Oral 540 540 Other: Voiding Method Toilet Toilet # Voids 2 2 GENERAL: The patient is alert and oriented x3, not in any acute distress. Well developed, well nourished. HEENT: Pupils are round and equally reacting to light. EOMI. No scleral icterus. No conjunctival pallor. Normocephalic, atraumatic. No pharyngeal erythema. No thyromegaly. CARDIOVASCULAR: S1 and S2 present. No murmurs, rubs, or gallops. PULMONARY: Chest is clear to auscultation, no wheezing or crackles. ABDOMEN: Soft, nontender, nondistended, normoactive bowel sounds. No palpable organomegaly. MUSCULOSKELETAL: No joint swelling or deformity. -EXTREMITIES: No cyanosis, clubbing, or pedal edema. Left knee wound with dressing in place. Rest of the examination is deferred to the surgery primary team. NEUROLOGICAL: Gross neurological examination did not reveal any focal deficits. SKIN: No rashes. Results CBC & Chem 7: 07/28/18 07:40 Labs: Abnormal Lab Results - Last 24 Hours (Table) 07/28/18 Range/Units 07:40 WBC 11.1 H (3.8-10.6) k/uL RBC 3.60 L (3.80-5.40) m/uL Neutrophils # 9.4 H (1.3-7.7) k/uL Lymphocytes # 0.8 L (1.0-4.8) k/uL Assessment and Plan Assessment: degenerative joint disease, failed outpatient medical management Status post left knee arthroplasty Leukocytosis, mild. Mostly reactive to surgery. No signs symptoms of infection. No need for antibiotic History of asthma Diabetes mellitus History of syncope History of progressive History of factor V laiden History of chronic back pain Plan: This is a pleasant 77 years old female who presents for left total knee arthroplasty. Primary orthopedic team are following the patient closely. Patient has mild leukocytosis, mostly reactive to surgery, no signs and symptoms of infection and no need for antibiotics for now as this has more risks than benefits. We recommend to monitor the WBC closely. Patient already has an appointment with her PCP on 08/04/2018, to which she agrees to go. Labs and medication were reviewed.. Continue same treatment. Continue with symptomatic treatment. Resume home medication. Monitor lytes and vitals. DVT and GI prophylaxis. Further recommendations of the clinical course of the patient Please note that DVT prophylaxis and pain management is as per primary orthopedic team Patient was counseled to follow-up with her appointment and she said she will keep him. She was informed about the appointment dates and timing. Thank you for consulting us, please feel free to contact us for any further question or clarification.
== END 2018-07-28 11:47 | disposition home health service (06) | DRG 470 ==
LOC: 2ORMAIN 07-27 07:14 → 4SSUR 07-27 14:25
PROVIDERS: ADMIT Orthopaedic Surgery; ATTEND Orthopaedic Surgery
PROC: 0SRD069 Replacement of Left Knee Joint with Oxidized Zirconium on Polyethylene Synthetic Substitute, Cemented, Open Approach (ICD-10-PCS; principal; 2018-07-27 09:15)
DX: M17.12 Unilateral primary osteoarthritis, left knee (principal); D68.51 Activated protein C resistance; J45.909 Unspecified asthma, uncomplicated; E78.5 Hyperlipidemia, unspecified; H40.9 Unspecified glaucoma; E03.9 Hypothyroidism, unspecified; I10 Essential (primary) hypertension; G89.29 Other chronic pain; E11.9 Type 2 diabetes mellitus without complications; Z85.820 Personal history of malignant melanoma of skin; Z86.010 Personal history of colon polyps; Z98.51 Tubal ligation status; Z98.890 Other specified postprocedural states; Z87.891 Personal history of nicotine dependence; Z79.890 Hormone replacement therapy; Z80.8 Family history of malignant neoplasm of other organs or systems; Z82.49 Family history of ischemic heart disease and other diseases of the circulatory system; Z98.42 Cataract extraction status, left eye; Z98.41 Cataract extraction status, right eye; Z79.899 Other long term (current) drug therapy; Z80.0 Family history of malignant neoplasm of digestive organs
CPT/HCPCS: 85025; 88300

== ENCOUNTER → 2019-10-24 | Outpatient (CLI) | payer MEDICARE | LOC: RADMRIMAIN 14:46 | PROVIDERS: ATTEND Nurse Practitioner Family | DX: Z53.9 Procedure and treatment not carried out, unspecified reason (principal) ==

== ENCOUNTER → 2020-05-17 | Outpatient (CLI) | payer MEDICARE ==
--- NOTE | 2020-05-21 08:58 | MM ---
Reason for exam: screening (asymptomatic). Last mammogram was performed 2 years and 6 months ago. History: Patient is postmenopausal and history of other cancer. Family history of breast cancer in mother at age 35 and breast cancer in sister at age 40. Physical Findings: A clinical breast exam by your physician is recommended on an annual basis and results should be correlated with mammographic findings. MG 3D Screening Mammo W/Cad Bilateral CC and MLO view(s) were taken. Prior study comparison: November 10, 2017, mammogram, performed at [facility]. There are scattered fibroglandular densities. There is chronic nodularity in the left breast. No significant changes when compared with prior studies. ASSESSMENT: Benign, BI-RAD 2 RECOMMENDATION: Routine screening mammogram of both breasts in 1 year.
== END | disposition home or self-care (01) ==
LOC: RADMAMWWP 13:37
PROVIDERS: ATTEND Family Medicine
DX: Z12.31 Encounter for screening mammogram for malignant neoplasm of breast (principal)
CPT/HCPCS: 77063; 77067

== ENCOUNTER → 2020-06-07 | Outpatient (CLI) | payer MEDICARE ==
[2020-06-07 14:43] LABS: Basophils # (A) 0.1 k/uL (0-0.2); Basophils % (A) 1 %; Eosinophils # (A) 0.3 k/uL (0-0.7); Eosinophils % (A) 4 %; HCT 40.7 % (34.0-46.0); HGB 13.4 gm/dL (11.4-16.0); Lymphocytes # (A) 1.7 k/uL (1.0-4.8); Lymphocytes % (A) 21 %; MCH 32.7 pg (25.0-35.0); MCHC 32.9 g/dL (31.0-37.0); MCV 99.3 fL (80.0-100.0); Mean Platelet Volume 7.7; Monocytes # (A) 0.7 k/uL (0-1.0); Monocytes % (A) 9 %; Neutrophils # (A) 5.1 k/uL (1.3-7.7); Neutrophils % (A) 64 %; Platelet Count 231 k/uL (150-450); RDW 13.9 % (11.5-15.5); WBC 8.1 k/uL (3.8-10.6)
== END | disposition home or self-care (01) ==
LOC: LABPAT 13:41
PROVIDERS: ATTEND Obstetrics & Gynecology
DX: Z01.812 Encounter for preprocedural laboratory examination (principal); I10 Essential (primary) hypertension; N95.0 Postmenopausal bleeding; N84.0 Polyp of corpus uteri
CPT/HCPCS: 85025; 93005

== ENCOUNTER → 2020-06-28 | Outpatient (CLI) | payer MEDICARE ==
[2020-06-28 12:06] LABS: Basophils # (A) 0.1 k/uL (0-0.2); Basophils % (A) 1 %; Eosinophils # (A) 0.3 k/uL (0-0.7); Eosinophils % (A) 4 %; HCT 41.2 % (34.0-46.0); HGB 13.5 gm/dL (11.4-16.0); Lymphocytes # (A) 1.3 k/uL (1.0-4.8); Lymphocytes % (A) 17 %; MCH 32.7 pg (25.0-35.0); MCHC 32.9 g/dL (31.0-37.0); MCV 99.4 fL (80.0-100.0); Mean Platelet Volume 8.2; Monocytes # (A) 0.5 k/uL (0-1.0); Monocytes % (A) 7 %; Neutrophils # (A) 5.4 k/uL (1.3-7.7); Neutrophils % (A) 70 %; Platelet Count 221 k/uL (150-450); RBC 4.15 m/uL (3.80-5.40); WBC 7.7 k/uL (3.8-10.6)
== END | disposition home or self-care (01) ==
LOC: LABWHC1 10:41
PROVIDERS: ATTEND Obstetrics & Gynecology
DX: Z01.818 Encounter for other preprocedural examination (principal); N95.0 Postmenopausal bleeding; N84.0 Polyp of corpus uteri
CPT/HCPCS: 36415; 85025

== ENCOUNTER → 2020-08-28 | Outpatient (CLI) | payer MEDICARE ==
[2020-08-28 13:57] LABS: Basophils # (A) 0.1 k/uL (0-0.2); Basophils % (A) 1 %; Eosinophils # (A) 0.3 k/uL (0-0.7); Eosinophils % (A) 3 %; HCT 43.6 % (34.0-46.0); HGB 13.6 gm/dL (11.4-16.0); Lymphocytes # (A) 1.2 k/uL (1.0-4.8); Lymphocytes % (A) 12 %; MCH 30.8 pg (25.0-35.0); MCHC 31.1 g/dL (31.0-37.0); Mean Platelet Volume 7.5; Monocytes # (A) 0.8 k/uL (0-1.0); Monocytes % (A) 8 %; Neutrophils # (A) 6.8 k/uL (1.3-7.7); Neutrophils % (A) 73 %; Platelet Count 298 k/uL (150-450); RBC 4.41 m/uL (3.80-5.40); RDW 13.8 % (11.5-15.5); WBC 9.3 k/uL (3.8-10.6)
== END | disposition home or self-care (01) ==
LOC: LABPAT 11:43
PROVIDERS: ATTEND Obstetrics & Gynecology
DX: Z01.812 Encounter for preprocedural laboratory examination (principal); N95.0 Postmenopausal bleeding; N84.0 Polyp of corpus uteri
CPT/HCPCS: 85025

== ENCOUNTER 2020-09-04 07:28 | Day surgery (SDC) | payer MEDICARE ==
[2020-08-31 10:37] VITALS: BMI 40.0
--- NOTE | 2020-08-31 11:05 | HP ---
HISTORY AND PHYSICAL DATE OF SURGERY: 09/04/2020 This is a 79-year-old female who presents with an endometrial polyp measuring 1.0 x 0.7 x 0.6 cm, noted sonographically. She in addition has an increased endometrial thickness 6 mm. She has agreed to proceed with hysteroscopy, polypectomy, and D and C. The risks and benefits of this procedure have been discussed with her in thorough detail. PAST MEDICAL HISTORY: Is significant for asthma, melanoma, postmenopausal bleeding, hypothyroidism. PAST SURGICAL HISTORY: Endometrial biopsy for postmenopausal bleeding in 2016 and 2018, melanoma excision, knee surgery. CURRENT MEDICATIONS: Bentyl 25 mg capsules daily, ibuprofen twice daily, levothyroxine 50 mcg daily, Lovastatin 20 mg tablets once daily, medroxyprogesterone acetate 10 mg tablets, 14 days on and 14 days cyclically, Mevacor daily, vitamin D daily, Zyrtec daily. ALLERGIES: LIPITOR to which she reports severe pain. FAMILY HISTORY: Significant for breast cancer, colon cancer, mitral valve prolapse. REPRODUCTIVE HISTORY: Significant for normal spontaneous vaginal deliveries x4, all unremarkable. SOCIAL HISTORY: Patient was previously a tobacco smoker, quit many years ago. Alcohol socially. She denies drug use. She is and currently retired. PHYSICAL EXAMINATION: On examination, the patient is 5 foot 1 inch, 212 pounds, blood pressure 124/78. HEENT exam reveals good dentition, no thyromegaly, no cervical lymphadenopathy. Breasts are bilaterally symmetric to inspection with no obvious lesions, masses, nipple discharge, or axillary adenopathy. Chest is clear to auscultation in all robertson, both anteriorly and posteriorly. Cardiac exam reveals regular rate and rhythm with no murmur, click, or rub. Abdomen is moderately obese, active bowel sounds, no CVA tenderness, no organ or splenomegaly. Active bowel sounds are noted. Extremities reveal no edema. Good peripheral pulses are noted, normal range of motion. The patient is alert and oriented x3 neurologically, with normal mood and affect. On pelvic examination, cervix is atrophic. No lesions or discharge. Uterus is small, anteverted, anteflexed, nontender. Adnexa are negative bilaterally. Rectal exam is also negative. IMPRESSION: Postmenopausal bleeding, increased endometrial thickness and evidence of endometrial polyp sonographically. Here for hysteroscopy, polypectomy, D and C. PLAN: We will proceed with surgery as above. The risks of surgery including bleeding, infection, perforation or damage to the bowel, bladder, ureters, or pelvic or abdominal organs have all been discussed. The ACOG pamphlets on the procedure have been given and reviewed. The risks of anesthesia have also been discussed and patient is aware of the potential of nerve damage, aspiration, or even . Second opinion is offered and declined. MMPREETHI / CAROLYNNN: [id number] /
[~2020-09-04 07:28] MED LIST changes: -DEXAMETHASONE SOD PHOSPHATE 10 MG/ML 1 ML VIAL IV ONE; +DEXAMETHASONE SOD PHOSPHATE 4 MG/ML 1 ML VIAL IV ONE; +LIDOCAINE 1% (10MG/ML) FOR IV START INTRADERMA PRN; -MIDAZOLAM (PF) 2 MG/2 ML VIAL IV PRN; +MIDAZOLAM 2 MG/2 ML VIAL IV PRN; -ceFAZolin IN SWFI 2 GM/20 ML SYRINGE IVP ONE
[2020-09-04 08:27] LABS: Glucose,Whole Blood 88 mg/dL (75-99)
[2020-09-04] MEDS ORDERED: MIDAZOLAM 2 MG/2 ML VIAL ONE (08:34)
[2020-09-04] MEDS ORDERED: PROPOFOL 10 MG/ML 20 ML VIAL IV ONE (08:34)
[2020-09-04] MEDS ORDERED: LIDOCAINE 1% INJ 10MG/ML (20 ML MDV) ONE (08:34)
[2020-09-04] MEDS ORDERED: ALBUTEROL HFA INHALER INHALATION ONE (08:34)
[2020-09-04] MEDS ORDERED: fentaNYL (PF) 50 MCG/ML 2 ML AMP ONE (08:34)
[2020-09-04] MEDS ORDERED: IPRATROPIUM-ALBUTEROL 3 ML NEB INHALATION STA (09:08)
[2020-09-04 09:13] VITALS: TEMP 98
--- NOTE | 2020-09-04 09:15 | P.OP ---
Date of Procedure: 09/04/20 Preoperative Diagnosis: Postmenopausal bleeding, sonographic suggestion of an endometrial polyp Postoperative Diagnosis: Same, essentially normal-appearing intrauterine cavity Procedure(s) Performed: Hysteroscopy, D&C, polypectomy. Anesthesia: SHAZIAA Surgeon: Macie Cadet Estimated Blood Loss (ml): 10 IV fluids (ml): 400 Urine output (ml): 5 Pathology: other (Intrauterine curettings and contents) Condition: stable Disposition: PACU Operative Findings: A possible small polyp noted in the endometrial cavity at 12:00. Normal- appearing ostia. The cavity otherwise completely negative. Description of Procedure: Patient is brought to the operating suite where a general anesthetic is administered without difficulty. She's placed in the dorsal lithotomy position. The cervix, vagina, perineal bodies are all prepped and draped in usual sterile fashion. The appropriate timeout was performed to assure proper patient and procedural identification. Antibiotics are not deemed necessary. Weighted speculum was placed into the vagina and the anterior lip of the cervix is grasped gently with an Allis clamp. The uterus sounds to a depth of 8 cm in the anteverted position. The cervix is gently and systematically dilated using Hanks dilators. The hysteroscope was placed in the cavity is infused with sterile saline. Careful inspection of the cavity reveals bilateral ostia. There is a suggestion of a small polyp at 12:00 and the anterior uterine fundus. Otherwise the cavity is completely clear. Hysteroscope was removed. A medium sharp curette is used in all 4 quadrants of the cavity is sampled. Special attention is given to the 12:00 area. A minimal amount of tissue is procured and sent to pathology for evaluation. When completed, the hysteroscope was once again introduced and the cavity appears completely clear. All sponge needle and enhancement counts are correct. Patient is brought back to the recovery room in very good condition with stable vital signs including 99% O2 saturation, pulse 87, blood pressure 139/77. Consideration is given to Toradol in the recovery room, per anesthesia staff. Patient will follow-up with me in the office in 2 weeks.
[2020-09-04] MEDS ORDERED: KETOROLAC 15 MG/ML 1 ML VIAL IVP ONE (09:27)
[2020-09-04 09:36] VITALS: RESP 16
[2020-09-04 10:10] VITALS: BP 128/58; PULSE 61
== END 2020-09-04 10:35 | disposition home or self-care (01) ==
LOC: OR 07:28
PROVIDERS: ATTEND Obstetrics & Gynecology
DX: N95.0 Postmenopausal bleeding (principal); N84.0 Polyp of corpus uteri; J45.909 Unspecified asthma, uncomplicated; R93.89 Abnormal findings on diagnostic imaging of other specified body structures; E03.9 Hypothyroidism, unspecified; Z85.820 Personal history of malignant melanoma of skin; Z79.899 Other long term (current) drug therapy; Z88.8 Allergy status to other drugs, medicaments and biological substances; Z87.891 Personal history of nicotine dependence; I10 Essential (primary) hypertension; J44.9 Chronic obstructive pulmonary disease, unspecified; Z79.52 Long term (current) use of systemic steroids
CPT/HCPCS: 94640; 88305; 58558; J2250; J1100; J2405; J2001; J3010; J1885; J2704

== ENCOUNTER → 2021-07-31 | Outpatient (CLI) | payer MEDICARE ==
--- NOTE | 2021-08-02 11:52 | MM ---
Reason for exam: screening (asymptomatic). Last mammogram was performed 1 year and 2 months ago. History: Patient is postmenopausal and history of other cancer. Family history of breast cancer in mother at age 35 and breast cancer in sister at age 40. Taking progesterone. Physical Findings: A clinical breast exam by your physician is recommended on an annual basis and results should be correlated with mammographic findings. MG 3D Screening Mammo W/Cad Bilateral CC and MLO view(s) were taken. Prior study comparison: May 17, 2020, bilateral MG 3d screening mammo w/cad. November 10, 2017, mammogram, performed at [facility]. There are scattered fibroglandular densities. There are benign appearing round calcifications bilaterally. There is stable tiny chronic nodularity bilaterally. There is no discrete abnormality. ASSESSMENT: Benign, BI-RAD 2 RECOMMENDATION: Routine screening mammogram of both breasts in 1 year.
== END | disposition home or self-care (01) ==
LOC: RADMAMWWP 13:19
PROVIDERS: ATTEND Family Medicine
DX: Z12.31 Encounter for screening mammogram for malignant neoplasm of breast (principal); Z80.3 Family history of malignant neoplasm of breast
CPT/HCPCS: 77063; 77067

== ENCOUNTER → 2021-09-17 | Outpatient (CLI) | payer MEDICARE ==
[2021-09-18 12:17] LABS: African American GFR (CKD) 80.7 (60.0-200.0); Anion Gap 11.6 mmol/L (10.00-18.00); Basophils # (A) 0.08 X 10*3/uL (0.00-0.10); Blood Urea Nitrogen 16.8 mg/dL (9.0-27.0); Carbon Dioxide 27.4 mmol/L (20.0-27.5); Eosinophils # (A) 0.32 X 10*3/uL (0.04-0.35); Eosinophils % (A) 4.1 %; HCT 42.9 % (37.2-46.3); Immature Grans, Automated 0.3 %; Lymphocytes # (A) 1.67 X 10*3/uL (0.90-5.00); Lymphocytes % (A) 21.6 %; MCH 30.8 pg (27.0-32.0); MCHC 30.3 g/dL (32.0-37.0); MCV 101.7 fL (80.0-97.0); Mean Platelet Volume 11.3 fL (9.5-12.2); Monocytes # (A) 0.79 X 10*3/uL (0.20-1.00); Monocytes % (A) 10.2 %; NRBC Per 100 WBC 0 /100 WBCS (0.0-0.0); Neutrophils # (A) 4.85 X 10*3/uL (1.80-7.70); Neutrophils % (A) 62.8 %; Non-African American GFR(CKD) 69.6 (60.0-200.0); Platelet Count 226 X 10*3/uL (140-440); Potassium 4.8 mmol/L (3.5-5.5); RBC 4.22 X 10*6/uL (4.10-5.20); RDW 15.6 % (11.5-14.5); WBC 7.73 X 10*3/uL (4.50-10.00)
== END | disposition home or self-care (01) ==
LOC: LABPAT 11:05
PROVIDERS: ATTEND Obstetrics & Gynecology
DX: Z01.812 Encounter for preprocedural laboratory examination (principal); N95.0 Postmenopausal bleeding
CPT/HCPCS: 80051; 82565; 84520; 85025; 86850; 86900; 86901; 87086; 93005

== ENCOUNTER 2021-09-24 06:02 | Observation (INO) | payer MEDICARE ==
[2021-09-18 12:11] VITALS: BMI 38.9
[2021-09-24] MEDS ORDERED: MIDAZOLAM 2 MG/2 ML VIAL IV PRN (06:03)
[2021-09-24] MEDS ORDERED: ONDANSETRON 4 MG/2 ML VIAL IVP ONE (06:03)
[2021-09-24] MEDS ORDERED: LIDOCAINE 1% (10MG/ML) FOR IV START INTRADERMA PRN (06:03)
[2021-09-24] MEDS ORDERED: DEXAMETHASONE SOD PHOSPHATE 4 MG/ML 1 ML VIAL IV ONE (06:03)
[2021-09-24] MEDS: LACTATED RINGERS 1,000 ML IV SCH ×2 (06:51→18:13)
[2021-09-24] MEDS ORDERED: HYDROmorphone 0.5 MG/0.5 ML SYRINGE IVP PRN (07:00)
[2021-09-24] MEDS ORDERED: LIDOCAINE 2% INJ 20 MG/ML (2 ML VIAL) ONE (07:22)
[2021-09-24] MEDS ORDERED: MORPHINE SULFATE (PF) 0.3 MG/0.3 ML SYR ONE (07:22)
[2021-09-24] MEDS ORDERED: PROPOFOL 10 MG/ML 20 ML VIAL IV ONE (07:22)
[2021-09-24] MEDS ORDERED: fentaNYL (PF) 50 MCG/ML 2 ML AMP ONE (07:22)
[2021-09-24] MEDS ORDERED: VASOPRESSIN 20 UNIT/ML 1 ML VIAL IM ONE (07:46)
[2021-09-24] MEDS ORDERED: BACITRACIN ZINC 500 UNIT/GM OINT 28.4 GM TUBE TOPICAL ONE (08:40)
[2021-09-24] MEDS ORDERED: NALOXONE 0.4 MG/ML 1 ML VIAL IV PRN (08:47)
[2021-09-24] MEDS ORDERED: MORPHINE SULFATE 2 MG/ML SYRINGE IVP PRN (08:47)
[2021-09-24] MEDS ORDERED: SIMETHICONE 80 MG CHEWABLE PO PRN (08:50)
[2021-09-24] MEDS ORDERED: diphenhydrAMINE 50 MG/ML 1 ML VIAL IVP PRN (08:50)
[2021-09-24] MEDS ORDERED: KETOROLAC 15 MG/ML 1 ML VIAL IVP PRN (08:50)
[2021-09-24] MEDS ORDERED: METOCLOPRAMIDE 5 MG/ML 2 ML VIAL IVP PRN (08:50)
[2021-09-24] MEDS ORDERED: ONDANSETRON 4 MG/2 ML VIAL IVP PRN (08:50)
--- NOTE | 2021-09-24 08:50 | P.OP ---
Date of Procedure: 09/24/21 Preoperative Diagnosis: Persistent postmenopausal bleeding Postoperative Diagnosis: Same, normal-appearing ovaries, high in the peritoneal cavity, bilaterally Procedure(s) Performed: Vaginal hysterectomy Anesthesia: spinal Surgeon: Macie Cadet Lining Vamper #1: Tessie Mendiola Estimated Blood Loss (ml): 25 IV fluids (ml): 700 Urine output (ml): 50 Pathology: other (Cervix and uterus) Condition: stable Disposition: PACU Operative Findings: Ovaries high, atrophic, left in situ per patient's wishes Description of Procedure: Patient is brought to the operating suite where a spinal analgesia with Duramorph is administered without difficulty. The cervix, vagina, perineal bodies are all prepped and draped in usual sterile fashion. Antibiotics given. The appropriate timeout is performed to assure proper patient and procedural identification. Weighted speculum was placed into the vagina. Bladder is drained for approximately 50 mL of clear yellow urine. Anterior lip of the cervix is grasped with a tenaculum. The cervix is injected circumferentially with a dilute Pitressin solution. A yuhaaviatam blade scalpel is used to incise the mucosa circumferentially with a V positioning at 6:00. Sponge rolled finger is used to sweep the tissue, it is at all times Well from the operative field to avoid bladder and/or ureteral injury. Metzenbaum scissors are used to enter the peritoneal cavity at 6:00. This is suture tied with a 2-0 Vicryl. The large weighted speculum was placed into the peritoneal cavity. The right uterosacral ligament is identified, clamped cut and suture ligated, the 0 Vicryl suture is held laterally with hemostats. Same procedure is carried out contralaterally. Uterine vessels are then identified, clamped cut and suture ligated. 2 additional pedicles are taken above the vessels. The uterus is then "walked out" posteriorly. Anterior peritoneum is entered at 12:00 with a Bovie. The final pedicles are grasped with Alise clamps and the cervix and uterus are removed. 0 Vicryl suture is used in a Debora stitch to secure the pedicles, these are flashed, retied, excellent hemostasis. The ovaries are very high in the peritoneal cavity bilaterally, no ovarian abnormalities are noted. Ovaries are left in situ per the patient's wishes. Surgical "smell" is placed on the pedicles to assure complete hemostasis. The speculum is changed to the shallow billed speculum and the 2-0 Vicryl suture is brought around in a pursestring fashion to close the peritoneal cavity. The uterosacral ligaments are now tied in the midline to begin vaginal cuff closure. 2 additional actuop-lo-vdzup sutures are used for final cuff closure. The cuff is palpated and noted to be securely intact. Urine is clear, Nicole catheter placed. Vagina is packed with one-inch iodophor gauze with basic tracing. Rectal exam reveals smooth rectal mucosa without stitch or defects. Total estimated blood loss 25 mL's. All sponge needle and enhancement counts are correct. Patient is brought back to recovery room in very good condition with stable vital signs including blood pressure 113/62, pulse 75, 99% O2 saturation.
[2021-09-24] MEDS ORDERED: LACTATED RINGERS 1,000 ML IV ONE ×2 (09:10)
[2021-09-25] MEDS: LACTATED RINGERS 1,000 ML IV SCH ×2 (04:58→05:50)
[2021-09-25 06:04] VITALS: RESP 18
--- NOTE | 2021-09-25 06:37 | P.PN ---
Progress Note - Text Progress Note Date: 09/25/21 POD 1 c section from spinal with duramorph. doing well, no lower ext weakness, no pruritus, no n/v. pain is 3/10 Vitals are stable.
[2021-09-25 07:45] VITALS: BP 146/76; PULSE 91; TEMP 97.6
--- NOTE | 2021-09-25 08:04 | P.DS ---
Providers Date of admission: 09/24/21 Expected date of discharge: 09/25/21 Attending physician: Macie Cadet Primary care physician: [facility] Course: This is an 80-year-old female who presented with persistent postmenopausal bl eeding, despite aggressive outpatient management. Recent endometrial biopsy was negative. Decision was made to proceed with definitive vaginal hysterectomy. Please see dictated history and physical for details. Yesterday under my care patient underwent a vaginal hysterectomy. She did extremely well, Nicole catheter and vaginal packing placed. Spinal with warm mouth was given. Ovaries appeared normal and were left in situ. Please see dictated operative note for details. This morning the patient is doing very well. She has no pain. No vaginal bleeding. Vaginal packing and Nicole catheter had been removed. She is passing flatus and has had a small bowel movement. She is passing urine. Vital signs are stable and she is afebrile. She is judged to be in very good condition for discharge home. She will follow-up with me in the office in 2 weeks. I have reminded her no intercourse, tampons or douching. She will use [id number] Advil or Aleve, or Motrin as needed for pain. She will continue her home medications as previously prescribed. No driving, no heavy lifting, no intercourse. She'll follow-up with me in the office in 2 weeks. I've asked her to call with any f leda shakes or chills, bloody or foul-smelling vaginal discharge, with any pain not alleviated by [id number] products, or indeed with any questions or concerns. Patient Condition at Discharge: Good Plan - Discharge Summary Discharge Rx Participant: No New Discharge Prescriptions: No Action Ibuprofen [Motrin] 200 - 400 mg PO Q6HR PRN PRN Reason: Pain Lovastatin [Mevacor] 20 mg PO HS Cholecalciferol (Vitamin D3) [Vitamin D3] 2,000 unit PO DAILY diphenhydrAMINE [Benadryl] 25 mg PO HS Cetirizine HCl [Zyrtec] 10 mg PO HS lisinopriL [Zestril] 2.5 mg PO HS Levothyroxine Sodium [Synthroid] 50 mcg PO DAILY Progesterone, Micronized [Progesterone] 200 mg PO HS Discharge Medication List Ibuprofen [Motrin] 200 - 400 mg PO Q6HR PRN 12/21/13 [History] Lovastatin [Mevacor] 20 mg PO HS 12/21/13 [History] Cetirizine HCl [Zyrtec] 10 mg PO HS 12/30/17 [History] Cholecalciferol (Vitamin D3) [Vitamin D3] 2,000 unit PO DAILY 12/30/17 [History] diphenhydrAMINE [Benadryl] 25 mg PO HS 12/30/17 [History] lisinopriL [Zestril] 2.5 mg PO HS 07/19/18 [History] Levothyroxine Sodium [Synthroid] 50 mcg PO DAILY 09/18/21 [History] Progesterone, Micronized [Progesterone] 200 mg PO HS 09/18/21 [History] Follow up Appointment(s)/Referral(s): Macie Cadet MD [STAFF PHYSICIAN] - 2 Weeks Discharge Disposition: HOME SELF-CARE
[2021-09-25] MEDS ORDERED: ACETAMINOPHEN TAB 325 MG TAB PO PRN (08:51)
== END 2021-09-25 09:45 | disposition home or self-care (01) ==
LOC: OR 06:02 → 4FBP 08:45 → OR 09-25 07:49
PROVIDERS: ADMIT Obstetrics & Gynecology; ATTEND Obstetrics & Gynecology
DX: N72 Inflammatory disease of cervix uteri (principal); N88.8 Other specified noninflammatory disorders of cervix uteri; N85.8 Other specified noninflammatory disorders of uterus; N95.0 Postmenopausal bleeding; J45.909 Unspecified asthma, uncomplicated; Z86.19 Personal history of other infectious and parasitic diseases; Z98.890 Other specified postprocedural states; Z85.820 Personal history of malignant melanoma of skin; Z80.0 Family history of malignant neoplasm of digestive organs; Z80.3 Family history of malignant neoplasm of breast; Z82.49 Family history of ischemic heart disease and other diseases of the circulatory system; I10 Essential (primary) hypertension; E78.5 Hyperlipidemia, unspecified; J44.9 Chronic obstructive pulmonary disease, unspecified; E07.9 Disorder of thyroid, unspecified; Z79.1 Long term (current) use of non-steroidal anti-inflammatories (NSAID); Z79.890 Hormone replacement therapy; Z79.899 Other long term (current) drug therapy; Z88.8 Allergy status to other drugs, medicaments and biological substances
CPT/HCPCS: 88307; 58260; G0378; J1100; J0690; J2405; J2274; J3010; J1885; J2704; J2001; 80051; 82565; 84520; 85025; 86850; 86900; 86901; 87086; 93005

== ENCOUNTER 2021-09-29 13:04 | Inpatient (IN) | payer MEDICARE ==
[2021-09-29] MEDS ORDERED: ONDANSETRON 4 MG/2 ML VIAL IVP STA (13:51)
[2021-09-29] MEDS ORDERED: SODIUM CHLORIDE 0.9% 500 ML 500 ML IV STA (13:51)
[2021-09-29] MEDS ORDERED: fentaNYL (PF) 50 MCG/ML 2 ML AMP IVP STA (13:52)
--- NOTE | 2021-09-29 14:01 | ED ---
General Adult HPI - General Chief complaint: Nausea/Vomiting/Diarrhea Stated complaint: post op pain, vomiting Time Seen by Provider: 09/29/21 13:48 Source: patient, family, RN notes reviewed, old records reviewed Mode of arrival: wheelchair Limitations: no limitations - History of Present Illness Initial comments: 80-year-old female, alert and oriented 4, presents to the emergency room with family member complaining of 2 days of abdominal pain with fever and chills. She states that she was discharged from the hospital after a vaginal hysterectomy on September 25. She states that last night she lost her appetite and had yellow diarrhea. Today she's had multiple episodes of vomiting, green in color. States that she is only taking Motrin for pain. Still having some vaginal bleeding from her procedure. She does have a history of COPD and states that she has a chronic cough that is worse at night when she lays down she normally uses albuterol inhaler when needed. -: days(s) (2) Location: abdomen Severity scale (1-10): 7 Quality: sharp, other (cramping) Consistency: constant Improves with: none Worsens with: movement, other (palpation) Associated Symptoms: cough, fever/chills, loss of appetite, nausea/vomiting, other (Diarrhea) Treatments Prior to Arrival: NSAID - Related Data Home Medications Medication Instructions Recorded Confirmed Ibuprofen [Motrin] 200 - 400 mg PO Q6HR PRN 12/21/13 09/24/21 Lovastatin [Mevacor] 20 mg PO HS 12/21/13 09/24/21 Cetirizine HCl [Zyrtec] 10 mg PO HS 12/30/17 09/24/21 Cholecalciferol (Vitamin D3) 2,000 unit PO DAILY 12/30/17 09/24/21 [Vitamin D3] diphenhydrAMINE [Benadryl] 25 mg PO HS 12/30/17 09/24/21 lisinopriL [Zestril] 2.5 mg PO HS 07/19/18 09/24/21 Levothyroxine Sodium [Synthroid] 50 mcg PO DAILY 09/18/21 09/24/21 Progesterone, Micronized 200 mg PO HS 09/18/21 09/24/21 [Progesterone] Allergies Allergy/AdvReac Type Severity Reaction Status Date / Time No Known Allergies Allergy Verified 09/29/21 13:12 Review of Systems ROS Statement: Those systems with pertinent positive or pertinent negative responses have been documented in the HPI. ROS Other: All systems not noted in ROS Statement are negative. Past Medical History Past Medical History: Asthma, Cancer, COPD, Eye Disorder, Hyperlipidemia, Hypertension, Osteoarthritis (OA), Respiratory Disorder, Thyroid Disorder Additional Past Medical History / Comment(s): HX CHILDHOOD ASTHMA, MELANOMA, hx migraines, ASTHMATIC BRONCHITIS, GLAUCOMA.skin cancer rt leg, post menopausal bleeding History of Any Multi-Drug Resistant Organisms: None Reported Past Surgical History: Hysterectomy, Joint Replacement, Orthopedic Surgery, Tubal Ligation Additional Past Surgical History / Comment(s): REMOVAL OF MELANOMA RIGHT LEG, D&C's, LEFT KNEE ARTHROSCOPY, BILATERAL CATARACT REMOVAL with stents for glaucoma, left knee replacement, skin cancer removed rt leg Past Anesthesia/Blood Transfusion Reactions: No Reported Reaction Additional Past Anesthesia/Blood Transfusion Reaction / Comment(s): No hx blood transfusion. Past Psychological History: No Psychological Hx Reported Smoking Status: Former smoker Past Alcohol Use History: Daily Past Drug Use History: None Reported - Past Family History Mother Family Medical History: Cancer Additional Family Medical History / Comment(s): BREAST CANCER. Sister(s) Family Medical History: Cancer, Deep Vein Thrombosis (DVT) Additional Family Medical History / Comment(s): BREAST CANCER x 2 Father Family Medical History: Cancer Additional Family Medical History / Comment(s): COLON CANCER. General Exam Limitations: no limitations General appearance: alert, in no apparent distress Head exam: Present: atraumatic ENT exam: Present: mucous membranes moist Neck exam: Present: normal inspection. Absent: tenderness, meningismus, lymphadenopathy, thyromegaly Respiratory exam: Present: normal lung sounds bilaterally. Absent: respiratory distress, rhonchi, stridor, accessory muscle use Cardiovascular Exam: Present: regular rate GI/Abdominal exam: Present: distended, tenderness. Absent: guarding, rigid Extremities exam: Present: normal capillary refill. Absent: tenderness, pedal edema, calf tenderness Back exam: Absent: tenderness, CVA tenderness (R), CVA tenderness (L), rash noted Neurological exam: Present: alert, oriented X3 Psychiatric exam: Present: normal affect, normal mood Skin exam: Present: warm, dry. Absent: cyanosis, diaphoretic, petechiae Course Vital Signs 09/29/21 09/29/21 13:09 16:04 Temperature 98.5 F Pulse Rate 93 89 Respiratory 16 14 Rate Blood Pressure 101/60 102/62 O2 Sat by Pulse 96 96 Oximetry EKG Findings - EKG Results: EKG: sinus rhythm (Ventricular rate 96, OK interval 0.179, QRS 0.106, QTC 0.419; normal axis) Medical Decision Making - Medical Decision Making Patient presents with abdominal pain and diarrhea status post vaginal hysterectomy on September 24. CT abdomen shows dilated small bowel consistent with ileus or mechanical small bowel obstruction. Hemoglobin and hematocrit are stable there is no evidence of leukocytosis. Patient does have elevated BUN and creatinine consistent with ABELARDO. Urinalysis shows many bacteria and white cells, absence of nitrites, which may be consistent with post-vaginal hysterectomy, however I will treat patient with Rocephin while awaiting urine culture. Case discussed with Dr. Landis, patient will be admitted to the hospital. I did advise patient and family of the results and they are agreeable to this admission. - Lab Data Result diagrams: 09/29/21 14:12 09/29/21 14:12 Lab Results 09/29/21 09/29/21 09/29/21 Range/Units 14:12 14:12 14:12 WBC 5.5 (3.8-10.6) k/uL RBC 4.29 (3.80-5.40) m/uL Hgb 14.0 (11.4-16.0) gm/dL Hct 43.0 (34.0-46.0) % MCV 100.2 H (80.0-100.0) fL MCH 32.7 (25.0-35.0) pg MCHC 32.7 (31.0-37.0) g/dL RDW 14.1 (11.5-15.5) % Plt Count 245 (150-450) k/uL MPV 8.3 Neutrophils % (Manual) 36 % Band Neuts % (Manual) 39 % Lymphocytes % (Manual) 7 % Monocytes % (Manual) 12 % Eosinophils % (Manual) 2 % Basophils % (Manual) 1 % Metamyelocytes % 5 % Neutrophils # (Manual) 4.10 (1.3-7.7) k/uL Lymphocytes # (Manual) 0.39 L (1.0-4.8) k/uL Monocytes # (Manual) 0.66 (0-1.0) k/uL Eosinophils # (Manual) 0.11 (0-0.7) k/uL Basophils # (Manual) 0.06 (0-0.2) k/uL Metamyelocytes # (Man) 0.28 H (0) k/uL Nucleated RBCs 0 (0-0) /100 WBC Manual Slide Review Performed Toxic Granulation Present Macrocytosis Slight PT 10.9 (9.0-12.0) sec INR 1.0 (<1.2) APTT 23.7 (22.0-30.0) sec Sodium 134 L (137-145) mmol/L Potassium 3.6 (3.5-5.1) mmol/L Chloride 99 (98-107) mmol/L Carbon Dioxide 29 (22-30) mmol/L Anion Gap 6 mmol/L BUN 30 H (7-17) mg/dL Creatinine 1.25 H (0.52-1.04) mg/dL Est GFR (CKD-EPI)AfAm 47 (>60 ml/min/1.73 sqM) Est GFR (CKD-EPI)NonAf 41 (>60 ml/min/1.73 sqM) Glucose 137 H (74-99) mg/dL Plasma Lactic Acid [place] (0.7-2.0) mmol/L Calcium 9.1 (8.4-10.2) mg/dL Total Bilirubin 1.1 (0.2-1.3) mg/dL AST 16 (14-36) U/L ALT 14 (4-34) U/L Alkaline Phosphatase 72 (38-126) U/L Troponin I (0.000-0.034) ng/mL Total Protein 6.8 (6.3-8.2) g/dL Albumin 3.8 (3.5-5.0) g/dL Amylase <30 L (30-110) U/L Lipase 14 L (23-300) U/L Urine Color Urine Appearance (Clear) Urine pH (5.0-8.0) Ur Specific [place] (1.001-1.035) Urine Protein (Negative) Urine Glucose (UA) (Negative) Urine Ketones (Negative) Urine Blood (Negative) Urine Nitrite (Negative) Urine Bilirubin (Negative) Urine Urobilinogen (<2.0) mg/dL Ur Leukocyte Esterase (Negative) Urine RBC (0-5) /hpf Urine WBC (0-5) /hpf Urine WBC Clumps (None) /hpf Ur Squamous Epith Cells (0-4) /hpf Urine Bacteria (None) /hpf Hyaline Casts (0-2) /lpf Urine Mucus (None) /hpf Coronavirus (PCR) (Not Detectd) Influenza Type A RNA (Not Detectd) Influenza Type B (PCR) (Not Detectd) 09/29/21 09/29/21 09/29/21 Range/Units 14:12 14:12 14:12 WBC (3.8-10.6) k/uL RBC (3.80-5.40) m/uL Hgb (11.4-16.0) gm/dL Hct (34.0-46.0) % MCV (80.0-100.0) fL MCH (25.0-35.0) pg MCHC (31.0-37.0) g/dL RDW (11.5-15.5) % Plt Count (150-450) k/uL MPV Neutrophils % (Manual) % Band Neuts % (Manual) % Lymphocytes % (Manual) % Monocytes % (Manual) % Eosinophils % (Manual) % Basophils % (Manual) % Metamyelocytes % % Neutrophils # (Manual) (1.3-7.7) k/uL Lymphocytes # (Manual) (1.0-4.8) k/uL Monocytes # (Manual) (0-1.0) k/uL Eosinophils # (Manual) (0-0.7) k/uL Basophils # (Manual) (0-0.2) k/uL Metamyelocytes # (Man) (0) k/uL Nucleated RBCs (0-0) /100 WBC Manual Slide Review Toxic Granulation Macrocytosis PT (9.0-12.0) sec INR (<1.2) APTT (22.0-30.0) sec Sodium (137-145) mmol/L Potassium (3.5-5.1) mmol/L Chloride (98-107) mmol/L Carbon Dioxide (22-30) mmol/L Anion Gap mmol/L BUN (7-17) mg/dL Creatinine (0.52-1.04) mg/dL Est GFR (CKD-EPI)AfAm (>60 ml/min/1.73 sqM) Est GFR (CKD-EPI)NonAf (>60 ml/min/1.73 sqM) Glucose (74-99) mg/dL Plasma Lactic Acid [place] 1.4 (0.7-2.0) mmol/L Calcium (8.4-10.2) mg/dL Total Bilirubin (0.2-1.3) mg/dL AST (14-36) U/L ALT (4-34) U/L Alkaline Phosphatase (38-126) U/L Troponin I <0.012 (0.000-0.034) ng/mL Total Protein (6.3-8.2) g/dL Albumin (3.5-5.0) g/dL Amylase (30-110) U/L Lipase (23-300) U/L Urine Color Urine Appearance (Clear) Urine pH (5.0-8.0) Ur Specific [place] (1.001-1.035) Urine Protein (Negative) Urine Glucose (UA) (Negative) Urine Ketones (Negative) Urine Blood (Negative) Urine Nitrite (Negative) Urine Bilirubin (Negative) Urine Urobilinogen (<2.0) mg/dL Ur Leukocyte Esterase (Negative) Urine RBC (0-5) /hpf Urine WBC (0-5) /hpf Urine WBC Clumps (None) /hpf Ur Squamous Epith Cells (0-4) /hpf Urine Bacteria (None) /hpf Hyaline Casts (0-2) /lpf Urine Mucus (None) /hpf Coronavirus (PCR) (Not Detectd) Influenza Type A RNA Not Detected (Not Detectd) Influenza Type B (PCR) Not Detected (Not Detectd) 09/29/21 09/29/21 Range/Units 14:12 14:16 WBC (3.8-10.6) k/uL RBC (3.80-5.40) m/uL Hgb (11.4-16.0) gm/dL Hct (34.0-46.0) % MCV (80.0-100.0) fL MCH (25.0-35.0) pg MCHC (31.0-37.0) g/dL RDW (11.5-15.5) % Plt Count (150-450) k/uL MPV Neutrophils % (Manual) % Band Neuts % (Manual) % Lymphocytes % (Manual) % Monocytes % (Manual) % Eosinophils % (Manual) % Basophils % (Manual) % Metamyelocytes % % Neutrophils # (Manual) (1.3-7.7) k/uL Lymphocytes # (Manual) (1.0-4.8) k/uL Monocytes # (Manual) (0-1.0) k/uL Eosinophils # (Manual) (0-0.7) k/uL Basophils # (Manual) (0-0.2) k/uL Metamyelocytes # (Man) (0) k/uL Nucleated RBCs (0-0) /100 WBC Manual Slide Review Toxic Granulation Macrocytosis PT (9.0-12.0) sec INR (<1.2) APTT (22.0-30.0) sec Sodium (137-145) mmol/L Potassium (3.5-5.1) mmol/L Chloride (98-107) mmol/L Carbon Dioxide (22-30) mmol/L Anion Gap mmol/L BUN (7-17) mg/dL Creatinine (0.52-1.04) mg/dL Est GFR (CKD-EPI)AfAm (>60 ml/min/1.73 sqM) Est GFR (CKD-EPI)NonAf (>60 ml/min/1.73 sqM) Glucose (74-99) mg/dL Plasma Lactic Acid [place] (0.7-2.0) mmol/L Calcium (8.4-10.2) mg/dL Total Bilirubin (0.2-1.3) mg/dL AST (14-36) U/L ALT (4-34) U/L Alkaline Phosphatase (38-126) U/L Troponin I (0.000-0.034) ng/mL Total Protein (6.3-8.2) g/dL Albumin (3.5-5.0) g/dL Amylase (30-110) U/L Lipase (23-300) U/L Urine Color Dark Brown Urine Appearance Turbid H (Clear) Urine pH 5.0 (5.0-8.0) Ur Specific [place] 1.022 (1.001-1.035) Urine Protein 2+ H (Negative) Urine Glucose (UA) Trace H (Negative) Urine Ketones Negative (Negative) Urine Blood Large H (Negative) Urine Nitrite Negative (Negative) Urine Bilirubin 1+ H (Negative) Urine Urobilinogen 3.0 (<2.0) mg/dL Ur Leukocyte Esterase Large H (Negative) Urine RBC >182 H (0-5) /hpf Urine WBC >182 H (0-5) /hpf Urine WBC Clumps Many H (None) /hpf Ur Squamous Epith Cells 20 H (0-4) /hpf Urine Bacteria Many H (None) /hpf Hyaline Casts 102 H (0-2) /lpf Urine Mucus Rare H (None) /hpf Coronavirus (PCR) Not Detected (Not Detectd) Influenza Type A RNA (Not Detectd) Influenza Type B (PCR) (Not Detectd) Disposition Clinical Impression: Ileus, UTI (urinary tract infection), ABELARDO (acute kidney injury) Disposition: ADMITTED IP TO THIS HOSP Referrals: Gisele Salinas DO [Primary Care Provider] - 1-2 days
[2021-09-29 14:35] LABS: Partial Thromboplastin Time 23.7 sec (22.0-30.0); Prothrombin Time 10.9 sec (9.0-12.0)
[2021-09-29 14:36] LABS: MCH 32.7 pg (25.0-35.0); MCHC 32.7 g/dL (31.0-37.0); MCV 100.2 fL (80.0-100.0); Macrocytosis Slight; Mean Platelet Volume 8.3; Platelet Count 245 k/uL (150-450); RBC 4.29 m/uL (3.80-5.40); RDW 14.1 % (11.5-15.5); WBC 5.5 k/uL (3.8-10.6)
[2021-09-29 14:36] LABS: Appearance,Urine Turbid (Clear); Bacteria,Urine Many /hpf; Bilirubin,Urine 1+ (Negative); Blood,Urine Large (Negative); Color,Urine Dark Brown; Glucose,Urine (UA) Trace (Negative); Hyaline Casts,Urine 102 /lpf (0-2); Ketones,Urine Negative (Negative); Leukocyte Esterase,Urine Large (Negative); Mucus,Urine Rare /hpf; Nitrite,Urine Negative (Negative); Protein,Urine 2+ (Negative); RBC,Urine >182 /hpf (0-5); Specific Gravity,Urine 1.022 (1.001-1.035); Squamous Epithelial Cell,Urine 20 /hpf (0-4); WBC,Urine >182 /hpf (0-5)
[2021-09-29 14:39] LABS: ALT 14 U/L (4-34); AST 16 U/L (14-36); African American GFR (CKD) 47 (>60 ml/min/1.73 sqM); Albumin 3.8 g/dL (3.5-5.0); Alkaline Phosphatase 72 U/L (38-126); Amylase <30 U/L (30-110); Anion Gap 6 mmol/L; Blood Urea Nitrogen 30 mg/dL (7-17); Calcium 9.1 mg/dL (8.4-10.2); Carbon Dioxide 29 mmol/L (22-30); Chloride 99 mmol/L (98-107); Glucose 137 mg/dL (74-99); Lipase 14 U/L (23-300); Non-African American GFR(CKD) 41 (>60 ml/min/1.73 sqM); Potassium 3.6 mmol/L (3.5-5.1); Sodium 134 mmol/L (137-145); Total Bilirubin 1.1 mg/dL (0.2-1.3); Total Protein 6.8 g/dL (6.3-8.2)
[2021-09-29 15:01] LABS: Metamyelocytes # (M) 0.28 k/uL (0); Metamyelocytes % 5 %; Nucleated Red Blood Cells 0 /100 WBC (0-0)
[2021-09-29 15:05] LABS: Band Neutrophils % 39 %; Basophils # (M) 0.06 k/uL (0-0.2); Eosinophils # (M) 0.11 k/uL (0-0.7); Lymphocytes # (M) 0.39 k/uL (1.0-4.8); Monocytes # (M) 0.66 k/uL (0-1.0); Neutrophils % (M) 36 %; Total Cells Counted 200; Toxic Granulation Present
--- NOTE | 2021-09-29 16:01 | CT ---
EXAMINATION TYPE: CT abdomen pelvis wo con DATE OF EXAM: 09/29/2021 COMPARISON: None HISTORY: Lower abdominal/pelvic pain, vomiting and diarrhea post hysterectomy x5 days ago. CT DLP: 1001.3 mGycm Automated exposure control for dose reduction was used. There is minimal subsegmental atelectasis at the lung bases. No pleural effusion. No pericardial effu dolores. Heart is slightly enlarged. Liver is intact. The bile ducts are not dilated. Spleen is intact. No pancreatic mass. Gallbladder ap pears normal. There is no adrenal mass. Kidneys show normal size and contour. No hydronephrosis. There is 2 mm calc ulus lower pole left kidney. Ureters are not dilated. No retroperitoneal adenopathy. Urinary bladder is almost empty. No inguinal hernia. There are numerous phleboliths in the pelvis. There are multiple dilated small bowel loops with fluid levels. Small bowel dilated up to 4.5 cm. The re are sigmoid diverticula. No diverticulitis. Large bowel is not dilated. Appendix not seen. No sign of thickened appendix. There is a first-degree L5-S1 spondylolisthesis. There is bilateral L5 spondylolysis. Bony pelvis is intact. The hip joints are intact. IMPRESSION: Dilated small bowel extending to the distal ileum and consistent with significant ileus or mechanical small bowel obstruction. Transition point not identified. Colonic diverticulosis without diverticulitis. Minimal subsegmental atelectasis at the lung bases.
[2021-09-29] MEDS ORDERED: ONDANSETRON 4 MG/2 ML VIAL IVP PRN (16:03)
[2021-09-29] MEDS ORDERED: NALOXONE 0.4 MG/ML 1 ML VIAL IV PRN (16:03)
[2021-09-29] MEDS ORDERED: HYDROmorphone 0.5 MG/0.5 ML SYRINGE IVP PRN (16:03)
[2021-09-29] MEDS: SODIUM CHLORIDE 0.9% 1,000 ML IV SCH (16:12)
[2021-09-29] MEDS ORDERED: LORazepam 1 MG TAB PO PRN (16:49)
--- NOTE | 2021-09-29 17:08 | HP ---
HISTORY AND PHYSICAL DATE OF SERVICE: 09/29/2021 CHIEF COMPLAINTS: Abdominal distention, pain and vomiting. HISTORY OF PRESENT ILLNESS: This 80-year-old woman with a past medical history of multiple medical problems, including asthma, COPD, being followed by Dr. Salinas in the outpatient setting, underwent vaginal hysterectomy for persistent post-menopausal bleeding on 09/24. The patient went home and subsequently had progressive abdominal distention, pain and some shortness of breath. The patient came to [facility] and was admitted for further evaluation and treatment. A CT scan of the abdomen and pelvis was done in the ER which showed dilated small bowels extending to the distal ileum. There is no history of any fever, rigor or chills at this time. PAST MEDICAL HISTORY: Reviewed. It includes history of asthma, COPD. HOME MEDICATIONS: Also reviewed. They include lisinopril. Doses and the rest of the medications are reviewed. ALLERGIES: NONE. FAMILY HISTORY: History of breast cancer in the family. SOCIAL HISTORY: Previous history of smoking. No history of daily alcohol intake. REVIEW OF SYSTEMS: Fourteen-point review of systems negative except as mentioned earlier. PHYSICAL EXAMINATION: Pulse is 93, blood pressure 101/60, respirations 16. HEENT: Conjunctivae normal. NECK: No jugular venous distention. CARDIOVASCULAR: S1, S2 muffled. RESPIRATION: Breath sounds diminished at the bases. A few scattered rhonchi and crackles. ABDOMEN: Soft. Mild diffuse distention. No guarding. No rigidity. No mass palpable. No rebound rigidity. Bowel sounds diminished. No ascites. LEGS: No edema. No swelling. NERVOUS SYSTEM: No focal deficit. LABS: WBC 5.5. Other labs are noted. ASSESSMENT: 1. Abdominal distention; possible ileus. 2. Possible acute urinary tract infection. 3. History of asthma. 4. History of chronic obstructive pulmonary disease. 5. Multiple medical issues. RECOMMENDATIONS AND DISCUSSION: In this 80-year-old woman who presented with multiple complex medical issues, at this time I recommend continuing the current medications. I will initiate broad-spectrum IV antibiotics and obtain [employer] surgical evaluation. The patient is complaining of shortness of breath also. I would also recommend a chest x-ray and obtain D-dimer also. If D-dimer is positive I would recommend a V/Q scan since the patient's creatinine is slightly elevated. Will continue to hydrate the patient. Overall prognosis is guarded. Further recommendations to follow. MMODL / IJN: [id number] /
--- NOTE | 2021-09-29 18:23 | XR ---
EXAMINATION TYPE: XR chest 1V portable DATE OF EXAM: 09/29/2021 COMPARISON: NONE HISTORY: Short of breath TECHNIQUE: Axial view FINDINGS: There is no heart failure nor confluent pneumonic infiltrate. Costophrenic angles are clear . There is slight coarsening of interstitial markings at the lung bases. IMPRESSION: Mild pulmonary fibrotic changes. No heart failure.
[2021-09-29] MEDS: LORATADINE 10 MG TAB PO SCH (20:41)
[2021-09-29] MEDS: PANTOPRAZOLE 40 MG/10 ML VIAL IVP SCH (21:07)
[2021-09-30] MEDS: LEVOTHYROXINE 50 MCG TAB PO SCH (05:00)
[2021-09-30] MEDS: SODIUM CHLORIDE 0.9% 1,000 ML IV SCH ×2 (05:00→16:33)
[2021-09-30] MEDS: PANTOPRAZOLE 40 MG/10 ML VIAL IVP SCH ×2 (09:16→20:43)
[2021-09-30 09:24] LABS: HCT 36.5 % (37.2-46.3); HGB 11.7 g/dL (12.0-15.0); MCH 32.3 pg (27.0-32.0); MCHC 32.1 g/dL (32.0-37.0); MCV 100.8 fL (80.0-97.0); Mean Platelet Volume 11.5 fL (9.5-12.2); NRBC Per 100 WBC 0 /100 WBCS (0.0-0.0); Platelet Count 227 X 10*3/uL (140-440); RBC 3.62 X 10*6/uL (4.10-5.20); RDW 14.7 % (11.5-14.5); WBC 6.76 X 10*3/uL (4.50-10.00)
[2021-09-30 09:35] LABS: African American GFR (CKD) 61.6 (60.0-200.0); Albumin 3.2 g/dL (3.8-4.9); Albumin/Globulin Ratio 1.23 (1.60-3.17); Anion Gap 13.4 mmol/L (10.00-18.00); BUN/Creat Ratio 23.9 Ratio (12.00-20.00); Blood Urea Nitrogen 23.9 mg/dL (9.0-27.0); Calcium 8.4 mg/dL (8.7-10.3); Carbon Dioxide 22.6 mmol/L (20.0-27.5); Globulin 2.6 g/dL (1.6-3.3); Non-African American GFR(CKD) 53.2 (60.0-200.0); Potassium 3.9 mmol/L (3.5-5.5); Total Bilirubin 0.6 mg/dL (0.30-1.20); Total Protein 5.8 g/dL (6.2-8.2)
[2021-09-30 10:18] LABS: Basophils # (A) 0.04 X 10*3/uL (0.00-0.10); Basophils % (A) 0.6 %; Eosinophils # (A) 0.25 X 10*3/uL (0.04-0.35); Eosinophils % (A) 3.7 %; Immature Grans, Automated 0.4 %; Lymphocytes # (A) 0.79 X 10*3/uL (0.90-5.00); Lymphocytes % (A) 11.7 %; Monocytes # (A) 1.18 X 10*3/uL (0.20-1.00); Monocytes % (A) 17.5 %; Neutrophils # (A) 4.47 X 10*3/uL (1.80-7.70); Neutrophils % (A) 66.1 %
--- NOTE | 2021-09-30 10:18 | P.GSCN ---
History of Present Illness Consult date: 09/30/21 Reason for Consult: Small bowel obstruction History of present illness: This 80-year-old female who was admitted to the hospital completes of nausea vomiting Patient's CAT scan shows a possible obstruction. Past Medical History Past Medical History: Asthma, Cancer, COPD, Eye Disorder, Hyperlipidemia, Hypertension, Osteoarthritis (OA), Respiratory Disorder, Thyroid Disorder Additional Past Medical History / Comment(s): HX CHILDHOOD ASTHMA, MELANOMA, hx migraines, ASTHMATIC BRONCHITIS, GLAUCOMA.skin cancer rt leg, post menopausal bleeding History of Any Multi-Drug Resistant Organisms: None Reported Past Surgical History: Hysterectomy, Joint Replacement, Orthopedic Surgery, Tubal Ligation Additional Past Surgical History / Comment(s): REMOVAL OF MELANOMA RIGHT LEG, D&C's, LEFT KNEE ARTHROSCOPY, BILATERAL CATARACT REMOVAL with stents for glaucoma, left knee replacement, skin cancer removed rt leg Past Anesthesia/Blood Transfusion Reactions: No Reported Reaction Additional Past Anesthesia/Blood Transfusion Reaction / Comm: No hx blood transf usion. Past Psychological History: No Psychological Hx Reported Smoking Status: Former smoker Past Alcohol Use History: Daily Additional Past Alcohol Use History / Comment(s): QUIT SMOKING 2007, SMOKED FOR APPROX 50 YRS. States has 2 Vodkas per day. Past Drug Use History: None Reported - Past Family History Mother Family Medical History: Cancer Additional Family Medical History / Comment(s): BREAST CANCER. Sister(s) Family Medical History: Cancer, Deep Vein Thrombosis (DVT) Additional Family Medical History / Comment(s): BREAST CANCER x 2 Father Family Medical History: Cancer Additional Family Medical History / Comment(s): COLON CANCER. Medications and Allergies Home Medications Medication Instructions Recorded Confirmed Type Ibuprofen [Motrin] 200 - 400 mg PO Q6HR PRN 12/21/13 09/29/21 History Lovastatin [Mevacor] 20 mg PO HS 12/21/13 09/29/21 History Cetirizine HCl [Zyrtec] 10 mg PO HS 12/30/17 09/29/21 History diphenhydrAMINE [Benadryl] 25 mg PO HS 12/30/17 09/29/21 History lisinopriL [Zestril] 2.5 mg PO HS 07/19/18 09/29/21 History Levothyroxine Sodium [Synthroid] 50 mcg PO DAILY 09/18/21 09/29/21 History Cholecalciferol [Vitamin D3 (25 50 mcg PO HS 09/29/21 09/29/21 History Mcg = 1000 Iu)] Allergies Allergy/AdvReac Type Severity Reaction Status Date / Time No Known Allergies Allergy Verified 09/29/21 16:32 Surgical - Exam Vital Signs Temp Pulse Resp BP Pulse Ox 98.5 F 93 16 101/60 96 09/29/21 13:09 09/29/21 13:09 09/29/21 13:09 09/29/21 13:09 09/29/21 13:09 - General no distress - Eyes PERRL - ENT normal pinna - Neck no masses - Respiratory normal expansion - Cardiovascular Rhythm: regular - Abdomen Mild distention Abdomen: soft, non tender Results - Labs 09/30/21 06:22 09/30/21 06:22 Abnormal Lab Results - Last 24 Hours (Table) 09/29/21 09/29/21 09/29/21 Range/Units 14:12 14:12 14:16 RBC (4.10-5.20) X 10*6/uL Hgb (12.0-15.0) g/dL Hct (37.2-46.3) % MCV 100.2 H (80.0-100.0) fL MCH (27.0-32.0) pg RDW (11.5-14.5) % Lymphocytes # (Manual) 0.39 L (1.0-4.8) k/uL Metamyelocytes # (Man) 0.28 H (0) k/uL ESR (0-20) mm/hr D-Dimer (<0.60) mg/L FEU Sodium 134 L (137-145) mmol/L BUN 30 H (7-17) mg/dL Creatinine 1.25 H (0.52-1.04) mg/dL Est GFR (CKD-EPI)NonAf (60.0-200.0) BUN/Creatinine Ratio (12.00-20.00) Ratio Glucose 137 H (74-99) mg/dL Calcium (8.7-10.3) mg/dL AST (13-35) U/L C-Reactive Protein (<1.0) mg/dL Total Protein (6.2-8.2) g/dL Albumin (3.8-4.9) g/dL Albumin/Globulin Ratio (1.60-3.17) g/dL Amylase <30 L (30-110) U/L Lipase 14 L (23-300) U/L Urine Appearance Turbid H (Clear) Urine Protein 2+ H (Negative) Urine Glucose (UA) Trace H (Negative) Urine Blood Large H (Negative) Urine Bilirubin 1+ H (Negative) Ur Leukocyte Esterase Large H (Negative) Urine RBC >182 H (0-5) /hpf Urine WBC >182 H (0-5) /hpf Urine WBC Clumps Many H (None) /hpf Ur Squamous Epith Cells 20 H (0-4) /hpf Urine Bacteria Many H (None) /hpf Hyaline Casts 102 H (0-2) /lpf Urine Mucus Rare H (None) /hpf 09/29/21 09/29/21 09/29/21 Range/Units 17:26 17:26 17:26 RBC (4.10-5.20) X 10*6/uL Hgb (12.0-15.0) g/dL Hct (37.2-46.3) % MCV (80.0-100.0) fL MCH (27.0-32.0) pg RDW (11.5-14.5) % Lymphocytes # (Manual) (1.0-4.8) k/uL Metamyelocytes # (Man) (0) k/uL ESR 78 H (0-20) mm/hr D-Dimer 7.95 H (<0.60) mg/L FEU Sodium (137-145) mmol/L BUN (7-17) mg/dL Creatinine (0.52-1.04) mg/dL Est GFR (CKD-EPI)NonAf (60.0-200.0) BUN/Creatinine Ratio (12.00-20.00) Ratio Glucose (74-99) mg/dL Calcium (8.7-10.3) mg/dL AST (13-35) U/L C-Reactive Protein 35.2 H (<1.0) mg/dL Total Protein (6.2-8.2) g/dL Albumin (3.8-4.9) g/dL Albumin/Globulin Ratio (1.60-3.17) g/dL Amylase (30-110) U/L Lipase (23-300) U/L Urine Appearance (Clear) Urine Protein (Negative) Urine Glucose (UA) (Negative) Urine Blood (Negative) Urine Bilirubin (Negative) Ur Leukocyte Esterase (Negative) Urine RBC (0-5) /hpf Urine WBC (0-5) /hpf Urine WBC Clumps (None) /hpf Ur Squamous Epith Cells (0-4) /hpf Urine Bacteria (None) /hpf Hyaline Casts (0-2) /lpf Urine Mucus (None) /hpf 09/30/21 09/30/21 Range/Units 06:22 06:22 RBC 3.62 L (4.10-5.20) X 10*6/uL Hgb 11.7 L (12.0-15.0) g/dL Hct 36.5 L (37.2-46.3) % MCV 100.8 H (80.0-100.0) fL MCH 32.3 H (27.0-32.0) pg RDW 14.7 H (11.5-14.5) % Lymphocytes # (Manual) (1.0-4.8) k/uL Metamyelocytes # (Man) (0) k/uL ESR (0-20) mm/hr D-Dimer (<0.60) mg/L FEU Sodium (137-145) mmol/L BUN (7-17) mg/dL Creatinine (0.52-1.04) mg/dL Est GFR (CKD-EPI)NonAf 53.2 L (60.0-200.0) BUN/Creatinine Ratio 23.90 H (12.00-20.00) Ratio Glucose (74-99) mg/dL Calcium 8.4 L (8.7-10.3) mg/dL AST 7 L (13-35) U/L C-Reactive Protein (<1.0) mg/dL Total Protein 5.8 L (6.2-8.2) g/dL Albumin 3.2 L (3.8-4.9) g/dL Albumin/Globulin Ratio 1.23 L (1.60-3.17) g/dL Amylase (30-110) U/L Lipase (23-300) U/L Urine Appearance (Clear) Urine Protein (Negative) Urine Glucose (UA) (Negative) Urine Blood (Negative) Urine Bilirubin (Negative) Ur Leukocyte Esterase (Negative) Urine RBC (0-5) /hpf Urine WBC (0-5) /hpf Urine WBC Clumps (None) /hpf Ur Squamous Epith Cells (0-4) /hpf Urine Bacteria (None) /hpf Hyaline Casts (0-2) /lpf Urine Mucus (None) /hpf Microbiology - Last 24 Hours (Table) 09/29/21 14:16 Urine Culture - Preliminary Urine,Voided Diabetes panel 09/29/21 09/30/21 Range/Units 14:12 06:22 Sodium 134 L 140 (137-145) mmol/L Potassium 3.6 3.9 (3.5-5.1) mmol/L Chloride 99 104 (98-107) mmol/L Carbon Dioxide 29 22.6 (22-30) mmol/L BUN 30 H 23.9 (7-17) mg/dL Creatinine 1.25 H 1.0 (0.52-1.04) mg/dL Glucose 137 H 103 (74-99) mg/dL Calcium 9.1 8.4 L (8.4-10.2) mg/dL AST 16 7 L (14-36) U/L ALT 14 9 (4-34) U/L Alkaline Phosphatase 72 57 (38-126) U/L Total Protein 6.8 5.8 L (6.3-8.2) g/dL Albumin 3.8 3.2 L (3.5-5.0) g/dL Calcium panel 09/29/21 09/30/21 Range/Units 14:12 06:22 Calcium 9.1 8.4 L (8.4-10.2) mg/dL Albumin 3.8 3.2 L (3.5-5.0) g/dL Pituitary panel 09/29/21 09/30/21 Range/Units 14:12 06:22 Sodium 134 L 140 (137-145) mmol/L Potassium 3.6 3.9 (3.5-5.1) mmol/L Chloride 99 104 (98-107) mmol/L Carbon Dioxide 29 22.6 (22-30) mmol/L BUN 30 H 23.9 (7-17) mg/dL Creatinine 1.25 H 1.0 (0.52-1.04) mg/dL Glucose 137 H 103 (74-99) mg/dL Calcium 9.1 8.4 L (8.4-10.2) mg/dL Adrenal panel 09/29/21 09/30/21 Range/Units 14:12 06:22 Sodium 134 L 140 (137-145) mmol/L Potassium 3.6 3.9 (3.5-5.1) mmol/L Chloride 99 104 (98-107) mmol/L Carbon Dioxide 29 22.6 (22-30) mmol/L BUN 30 H 23.9 (7-17) mg/dL Creatinine 1.25 H 1.0 (0.52-1.04) mg/dL Glucose 137 H 103 (74-99) mg/dL Calcium 9.1 8.4 L (8.4-10.2) mg/dL Total Bilirubin 1.1 0.60 (0.2-1.3) mg/dL AST 16 7 L (14-36) U/L ALT 14 9 (4-34) U/L Alkaline Phosphatase 72 57 (38-126) U/L Total Protein 6.8 5.8 L (6.3-8.2) g/dL Albumin 3.8 3.2 L (3.5-5.0) g/dL Assessment and Plan Assessment: Small bowel obstruction. Patient remained nothing by mouth. She should have nasogastric decompression. She'll be observed closely.
[2021-09-30 10:19] LABS: RBC Morphology NORMAL
--- NOTE | 2021-09-30 11:07 | P.OBCN ---
History of Present Illness Consult date: 09/30/21 Requesting physician: Enoch Mcdonnell Reason for consult: other (Postoperative ileus) Chief complaint: Abdominal pain, vomiting, diarrhea History of present illness: This is an 80-year-old who underwent a total vaginal hysterectomy on 09/24/[address] Cadet. This was done for persistent postmenopausal bleeding. The patient was discharged home after a routine postoperative course on postopera tive day #1. She describes feeling well for the first 24 hours however on by postoperative day 3 she began having increasing abdominal and pelvic pain, nausea, vomiting and diarrhea. She felt feverish and shield. She was evaluated in the emergency room and was found by computed tomography scan to have dilated loops of small bowel consistent with postoperative ileus versus small bowel obstruction. This morning she reports her nausea and vomiting have resolved however she continues to have episodes of copious diarrhea, non-bloody. She has waves of the abdominal discomfort where her abdomen feels hard. She denies vaginal bleeding or discharge. She denies difficulty with urination, dysuria or blood in the urine. She was empirically treated in the emergency room for bladder infection and uterine cultures are pending. Review of Systems Constitutional: Denies chills, Denies fever Cardiovascular: Reports shortness of breath, Denies chest pain Respiratory: Reports dyspnea, Denies cough Gastrointestinal: Reports abdominal pain, Reports bloating, Reports diarrhea, Denies constipation, Denies hematemesis, Denies melena, Denies nausea, Denies vomiting Genitourinary: Reports as per HPI Menstruation: Reports as per HPI Neurological: Reports weakness Past Medical History Past Medical History: Asthma, Cancer, COPD, Eye Disorder, Hyperlipidemia, Hypertension, Osteoarthritis (OA), Respiratory Disorder, Thyroid Disorder Additional Past Medical History / Comment(s): HX CHILDHOOD ASTHMA, MELANOMA, hx migraines, ASTHMATIC BRONCHITIS, GLAUCOMA.skin cancer rt leg, post menopausal bleeding History of Any Multi-Drug Resistant Organisms: None Reported Past Surgical History: Hysterectomy, Joint Replacement, Orthopedic Surgery, Tubal Ligation Additional Past Surgical History / Comment(s): REMOVAL OF MELANOMA RIGHT LEG, D&C's, LEFT KNEE ARTHROSCOPY, BILATERAL CATARACT REMOVAL with stents for glaucoma, left knee replacement, skin cancer removed rt leg Past Anesthesia/Blood Transfusion Reactions: No Reported Reaction Additional Past Anesthesia/Blood Transfusion Reaction / Comm: No hx blood transfusion. Past Psychological History: No Psychological Hx Reported Smoking Status: Former smoker Past Alcohol Use History: Daily Additional Past Alcohol Use History / Comment(s): QUIT SMOKING 2007, SMOKED FOR APPROX 50 YRS. States has 2 Vodkas per day. Past Drug Use History: None Reported - Past Family History Mother Family Medical History: Cancer Additional Family Medical History / Comment(s): BREAST CANCER. Sister(s) Family Medical History: Cancer, Deep Vein Thrombosis (DVT) Additional Family Medical History / Comment(s): BREAST CANCER x 2 Father Family Medical History: Cancer Additional Family Medical History / Comment(s): COLON CANCER. Medications and Allergies Home Medications Medication Instructions Recorded Confirmed Type Ibuprofen [Motrin] 200 - 400 mg PO Q6HR PRN 12/21/13 09/29/21 History Lovastatin [Mevacor] 20 mg PO HS 12/21/13 09/29/21 History Cetirizine HCl [Zyrtec] 10 mg PO HS 12/30/17 09/29/21 History diphenhydrAMINE [Benadryl] 25 mg PO HS 12/30/17 09/29/21 History lisinopriL [Zestril] 2.5 mg PO HS 07/19/18 09/29/21 History Levothyroxine Sodium [Synthroid] 50 mcg PO DAILY 09/18/21 09/29/21 History Cholecalciferol [Vitamin D3 (25 50 mcg PO HS 09/29/21 09/29/21 History Mcg = 1000 Iu)] Allergies Allergy/AdvReac Type Severity Reaction Status Date / Time No Known Allergies Allergy Verified 09/29/21 16:32 Exam Vital Signs Temp Pulse Pulse Resp BP BP Pulse Ox 09/30/21 04:20 97.6 F 88 15 115/63 95 09/29/21 18:42 98.2 F 100 16 106/62 93 L 09/29/21 17:31 98.0 F 91 16 110/67 96 09/29/21 16:04 89 14 102/62 96 09/29/21 13:09 98.5 F 93 16 101/60 96 Intake and Output 09/29/21 09/30/21 09/30/21 22:59 06:59 14:59 Intake Total 75 900 Balance 75 900 Intake: Intake, IV Titration 75 900 Amount Sodium Chloride 0.9% 1, 75 900 000 ml @ 75 mls/hr IV . [id number] [facility] Rx#:[id number] Other: # Voids 3 # Bowel Movements 1 4 Weight 101.5 kg This is a pleasant elderly female in no acute distress. HEENT exam unremarkable. Her breathing is unlabored and her heart is a regular rate and rhythm. The abdomen is distended and soft. She has no rebound or guarding. She has mild tenderness in all 4 quadrants. Examination the perineum reveals no active bleeding or discharge. Results Result Diagrams: 09/30/21 06:22 09/30/21 06:22 Abnormal Lab Results - Last 24 Hours (Table) 09/29/21 09/29/21 09/29/21 Range/Units 14:12 14:12 14:16 RBC (4.10-5.20) X 10*6/uL Hgb (12.0-15.0) g/dL Hct (37.2-46.3) % MCV 100.2 H (80.0-100.0) fL MCH (27.0-32.0) pg RDW (11.5-14.5) % Lymphocytes # (0.90-5.00) X 10*3/uL Lymphocytes # (Manual) 0.39 L (1.0-4.8) k/uL Monocytes # (0.20-1.00) X 10*3/uL Metamyelocytes # (Man) 0.28 H (0) k/uL ESR (0-20) mm/hr D-Dimer (<0.60) mg/L FEU Sodium 134 L (137-145) mmol/L BUN 30 H (7-17) mg/dL Creatinine 1.25 H (0.52-1.04) mg/dL Est GFR (CKD-EPI)NonAf (60.0-200.0) BUN/Creatinine Ratio (12.00-20.00) Ratio Glucose 137 H (74-99) mg/dL Calcium (8.7-10.3) mg/dL AST (13-35) U/L C-Reactive Protein (<1.0) mg/dL Total Protein (6.2-8.2) g/dL Albumin (3.8-4.9) g/dL Albumin/Globulin Ratio (1.60-3.17) g/dL Amylase <30 L (30-110) U/L Lipase 14 L (23-300) U/L Urine Appearance Turbid H (Clear) Urine Protein 2+ H (Negative) Urine Glucose (UA) Trace H (Negative) Urine Blood Large H (Negative) Urine Bilirubin 1+ H (Negative) Ur Leukocyte Esterase Large H (Negative) Urine RBC >182 H (0-5) /hpf Urine WBC >182 H (0-5) /hpf Urine WBC Clumps Many H (None) /hpf Ur Squamous Epith Cells 20 H (0-4) /hpf Urine Bacteria Many H (None) /hpf Hyaline Casts 102 H (0-2) /lpf Urine Mucus Rare H (None) /hpf 09/29/21 09/29/21 09/29/21 Range/Units 17:26 17:26 17:26 RBC (4.10-5.20) X 10*6/uL Hgb (12.0-15.0) g/dL Hct (37.2-46.3) % MCV (80.0-100.0) fL MCH (27.0-32.0) pg RDW (11.5-14.5) % Lymphocytes # (0.90-5.00) X 10*3/uL Lymphocytes # (Manual) (1.0-4.8) k/uL Monocytes # (0.20-1.00) X 10*3/uL Metamyelocytes # (Man) (0) k/uL ESR 78 H (0-20) mm/hr D-Dimer 7.95 H (<0.60) mg/L FEU Sodium (137-145) mmol/L BUN (7-17) mg/dL Creatinine (0.52-1.04) mg/dL Est GFR (CKD-EPI)NonAf (60.0-200.0) BUN/Creatinine Ratio (12.00-20.00) Ratio Glucose (74-99) mg/dL Calcium (8.7-10.3) mg/dL AST (13-35) U/L C-Reactive Protein 35.2 H (<1.0) mg/dL Total Protein (6.2-8.2) g/dL Albumin (3.8-4.9) g/dL Albumin/Globulin Ratio (1.60-3.17) g/dL Amylase (30-110) U/L Lipase (23-300) U/L Urine Appearance (Clear) Urine Protein (Negative) Urine Glucose (UA) (Negative) Urine Blood (Negative) Urine Bilirubin (Negative) Ur Leukocyte Esterase (Negative) Urine RBC (0-5) /hpf Urine WBC (0-5) /hpf Urine WBC Clumps (None) /hpf Ur Squamous Epith Cells (0-4) /hpf Urine Bacteria (None) /hpf Hyaline Casts (0-2) /lpf Urine Mucus (None) /hpf 09/30/21 09/30/21 Range/Units 06:22 06:22 RBC 3.62 L (4.10-5.20) X 10*6/uL Hgb 11.7 L (12.0-15.0) g/dL Hct 36.5 L (37.2-46.3) % MCV 100.8 H (80.0-100.0) fL MCH 32.3 H (27.0-32.0) pg RDW 14.7 H (11.5-14.5) % Lymphocytes # 0.79 L (0.90-5.00) X 10*3/uL Lymphocytes # (Manual) (1.0-4.8) k/uL Monocytes # 1.18 H (0.20-1.00) X 10*3/uL Metamyelocytes # (Man) (0) k/uL ESR (0-20) mm/hr D-Dimer (<0.60) mg/L FEU Sodium (137-145) mmol/L BUN (7-17) mg/dL Creatinine (0.52-1.04) mg/dL Est GFR (CKD-EPI)NonAf 53.2 L (60.0-200.0) BUN/Creatinine Ratio 23.90 H (12.00-20.00) Ratio Glucose (74-99) mg/dL Calcium 8.4 L (8.7-10.3) mg/dL AST 7 L (13-35) U/L C-Reactive Protein (<1.0) mg/dL Total Protein 5.8 L (6.2-8.2) g/dL Albumin 3.2 L (3.8-4.9) g/dL Albumin/Globulin Ratio 1.23 L (1.60-3.17) g/dL Amylase (30-110) U/L Lipase (23-300) U/L Urine Appearance (Clear) Urine Protein (Negative) Urine Glucose (UA) (Negative) Urine Blood (Negative) Urine Bilirubin (Negative) Ur Leukocyte Esterase (Negative) Urine RBC (0-5) /hpf Urine WBC (0-5) /hpf Urine WBC Clumps (None) /hpf Ur Squamous Epith Cells (0-4) /hpf Urine Bacteria (None) /hpf Hyaline Casts (0-2) /lpf Urine Mucus (None) /hpf Microbiology - Last 24 Hours (Table) 09/29/21 14:16 Urine Culture - Preliminary Urine,Voided CT scan - abdomen: report reviewed CT scan - pelvis: report reviewed Assessment and Plan (1) Status post hysterectomy Current Visit: Yes Status: Acute Code(s): Z90.710 - ACQUIRED ABSENCE OF BOTH CERVIX AND UTERUS SNOMED Code(s): 363977166 (2) ABELARDO (acute kidney injury) Current Visit: Yes Status: Acute Code(s): N17.9 - ACUTE KIDNEY FAILURE, UNSPECIFIED SNOMED Code(s): 42724254 (3) Ileus Current Visit: Yes Status: Acute Code(s): K56.7 - ILEUS, UNSPECIFIED SNOMED Code(s): 234543065 (4) UTI (urinary tract infection) Current Visit: Yes Status: Acute Code(s): N39.0 - URINARY TRACT INFECTION, SITE NOT SPECIFIED SNOMED Code(s): 75042999 (5) COPD (chronic obstructive pulmonary disease) Current Visit: Yes Status: Acute Code(s): J44.9 - CHRONIC OBSTRUCTIVE PULMONARY DISEASE, UNSPECIFIED SNOMED Code(s): 23504407 Plan: This is an 80-year-old post op day 6 status post total vaginal hysterectomy for postmenopausal bleeding. She is readmitted for postoperative ileus. No evidence of acute bowel or injury. No active vaginal bleeding. I discussed with the patient and her daughter plan for conservative bowel management, nothing by mouth, supportive care and all questions were answered. C. diff culture will be ordered.
--- NOTE | 2021-09-30 11:53 | CT ---
EXAMINATION TYPE: CT angio chest CT DLP: 501.1 mGycm, Automated exposure control for dose reduction was used. DATE OF EXAM: 09/30/2021 11:18 AM COMPARISON: Chest radiograph from one day prior CLINICAL INDICATION:Female, 80 years old with history of elevated D-Dimer, R/O PE; elevated D-Dimer, R/O PE TECHNIQUE/CONTRAST: CTA scan of the thorax is performed with IV Contrast, patient injected with 66 mL of Isovue 370, pulm onary embolism protocol. MIP images are created and reviewed. FINDINGS: Pulmonary Artery: There is no evidence for a filling defect within the pulmonary vasculature to sugge st acute pulmonary embolism. The pulmonary artery is of normal size. Lungs/Pleura: No evidence of focal consolidation, pleural effusion or pneumothorax. Atelectasis/scarr ing changes are seen in the lung bases in the anterior medial aspect of the middle lobe and lingula. Airway: Large airways are patent. Heart: The heart is mildly enlarged for size. Coronary artery atherosclerosis as well as aortic valve leaflet and mitral valve annular calcifications. Vasculature: No evidence of aortic aneurysm. Mediastinum: No gross evidence of adenopathy. Musculoskeletal: No acute osseous abnormalities. Multilevel disc degeneration changes are seen throug hout the spine. Soft Tissues: Unremarkable. Lower neck: No significant findings. Upper Abdomen: Diffuse low-attenuation to the liver parenchyma. IMPRESSION: 1. No evidence of pulmonary embolism. 2. Hepatic steatosis. 3. Coronary artery atherosclerosis.
--- NOTE | 2021-09-30 12:59 | PN ---
PROGRESS NOTE DATE OF SERVICE: 09/30/2021 This 80-year-old woman who recently had a hysterectomy was admitted with abdominal pain and discomfort. Patient had diarrhea today. Patient had features of abdominal ileus. The patient had a UTI also. The patient is on empiric antibiotics. D-dimer is elevated. The CT angio of the chest shows no evidence of any pulmonary embolism. Past medical history reviewed. REVIEW OF SYSTEMS: Fourteen-point review of systems negative except as mentioned earlier. MEDICATIONS: Reviewed. They include Dilaudid and Rocephin. Rest of the medications are noted. PHYSICAL EXAMINATION: The pulse is 88, blood pressure 115/63, respiration 15. HEENT: Conjunctivae normal. NECK: No jugular venous distention. CARDIOVASCULAR: S1, S2 muffled. RESPIRATION: Breath sounds diminished at the bases. Scattered rhonchi. ABDOMEN: Soft. Mild diffuse discomfort, distended. No guarding. No rigidity. LEGS: No edema. No swelling. NERVOUS SYSTEM: No focal deficit. LABS: Reviewed. The sedimentation rate is 78. ASSESSMENT: 1. Abdominal distention; possibly ileus. 2. Rule out sepsis. 3. Elevated D-dimer without any evidence of pulmonary embolism. 4. Possible acute urinary tract infection. 5. History of recent hysterectomy. 6. History of asthma. 7. History of chronic obstructive pulmonary disease. 8. Multiple medical issues. RECOMMENDATIONS AND DISCUSSION: I recommend to continue current medications, continue with the monitoring, symptomatic treatment. Will check C difficile. Continue with the antibiotics. I would also recommend cultures and infectious disease evaluation. Closely follow with [employer]SE[employer] and Surgery. Further recommendations to follow. Prognosis guarded. MMODL / IJN: [id number] /
[2021-09-30] MEDS: PIPERACILLIN-TAZOBACTAM 3.375 GM in SODIUM CHLORIDE 0.9% 100 ML IVPB SCH (17:49)
[2021-09-30] MEDS: LORATADINE 10 MG TAB PO SCH (20:31)
--- NOTE | 2021-09-30 22:58 | P.CONS ---
History of Present Illness - Reason for Consult Consult date: 09/30/21 - History of Present Illness Patient is a 80-year-old female who is a status post total vaginal hysterectomy completed on 09/24/2021 for persistent postmenopausal bleeding patient was discharged home in stable condition and apparently was doing well for a day or 2 however postop day 3 the patient having increasing lower abdominal pain patient described the pain to be more of a sharp in nature that has gradually increased in severity to almost 8 out of 10 and no radiation patient also having associated nausea vomiting and diarrhea denies any blood or mucus in the stool has felt feverish but did not take her temperature with the symptom the patient presented to hospital on arrival to the ER patient was afebr ile and no fever have been recorded subsequently patient did have normal white count BUN/creatinine was mildly elevated repeat a normal levels in the normal she did have a positive UA with large leukocyte Estrace more than 182 WBC, COVID and influenza testing was negative patient did have a abdominal pelvis CT dilated small bowel extending to the distal ileum consistent with significant ileus or mechanical obstruction no mention of any colitis on labs this she also have a CT angiogram of the chest that has been negative for PE did not show any consolidation patient was started on Rocephin concerning for possible UTI infectious disease was consulted for further management of antibiotic therapy Past Medical History Past Medical History: Asthma, Cancer, COPD, Eye Disorder, Hyperlipidemia, Hypertension, Osteoarthritis (OA), Respiratory Disorder, Thyroid Disorder Additional Past Medical History / Comment(s): HX CHILDHOOD ASTHMA, MELANOMA, hx migraines, ASTHMATIC BRONCHITIS, GLAUCOMA.skin cancer rt leg, post menopausal bleeding History of Any Multi-Drug Resistant Organisms: None Reported Past Surgical History: Hysterectomy, Joint Replacement, Orthopedic Surgery, Tubal Ligation Additional Past Surgical History / Comment(s): REMOVAL OF MELANOMA RIGHT LEG, D&C's, LEFT KNEE ARTHROSCOPY, BILATERAL CATARACT REMOVAL with stents for glaucoma, left knee replacement, skin cancer removed rt leg Past Anesthesia/Blood Transfusion Reactions: No Reported Reaction Additional Past Anesthesia/Blood Transfusion Reaction / Comm: No hx blood transfusion. Past Psychological History: No Psychological Hx Reported Smoking Status: Former smoker Past Alcohol Use History: Daily Additional Past Alcohol Use History / Comment(s): QUIT SMOKING 2007, SMOKED FOR APPROX 50 YRS. States has 2 Vodkas per day. Past Drug Use History: None Reported - Past Family History Mother Family Medical History: Cancer Additional Family Medical History / Comment(s): BREAST CANCER. Sister(s) Family Medical History: Cancer, Deep Vein Thrombosis (DVT) Additional Family Medical History / Comment(s): BREAST CANCER x 2 Father Family Medical History: Cancer Additional Family Medical History / Comment(s): COLON CANCER. Medications and Allergies Home Medications Medication Instructions Recorded Confirmed Type Ibuprofen [Motrin] 200 - 400 mg PO Q6HR PRN 12/21/13 09/29/21 History Lovastatin [Mevacor] 20 mg PO HS 12/21/13 09/29/21 History Cetirizine HCl [Zyrtec] 10 mg PO HS 12/30/17 09/29/21 History diphenhydrAMINE [Benadryl] 25 mg PO HS 12/30/17 09/29/21 History lisinopriL [Zestril] 2.5 mg PO HS 07/19/18 09/29/21 History Levothyroxine Sodium [Synthroid] 50 mcg PO DAILY 09/18/21 09/29/21 History Cholecalciferol [Vitamin D3 (25 50 mcg PO HS 09/29/21 09/29/21 History Mcg = 1000 Iu)] Allergies Allergy/AdvReac Type Severity Reaction Status Date / Time No Known Allergies Allergy Verified 09/29/21 16:32 Physical Exam Vitals: Vital Signs Temp Pulse Pulse Resp BP BP Pulse Ox 09/30/21 13:20 97.8 F 88 18 126/61 93 L 09/30/21 04:20 97.6 F 88 15 115/63 95 09/29/21 18:42 98.2 F 100 16 106/62 93 L 09/29/21 17:31 98.0 F 91 16 110/67 96 09/29/21 16:04 89 14 102/62 96 Intake and Output 09/29/21 09/30/21 09/30/21 22:59 06:59 14:59 Intake Total 75 900 Balance 75 900 Intake: Intake, IV Titration 75 900 Amount Sodium Chloride 0.9% 1, 75 900 000 ml @ 75 mls/hr IV . [id number] [facility] Rx#:[id number] Other: # Voids 3 # Bowel Movements 1 4 Weight 101.5 kg Results CBC & Chem 7: 09/30/21 06:22 09/30/21 06:22 Labs: Abnormal Lab Results - Last 24 Hours (Table) 09/29/21 09/29/21 09/29/21 Range/Units 14:12 14:12 14:16 RBC (4.10-5.20) X 10*6/uL Hgb (12.0-15.0) g/dL Hct (37.2-46.3) % MCV 100.2 H (80.0-100.0) fL MCH (27.0-32.0) pg RDW (11.5-14.5) % Lymphocytes # (0.90-5.00) X 10*3/uL Lymphocytes # (Manual) 0.39 L (1.0-4.8) k/uL Monocytes # (0.20-1.00) X 10*3/uL Metamyelocytes # (Man) 0.28 H (0) k/uL ESR (0-20) mm/hr D-Dimer (<0.60) mg/L FEU Sodium 134 L (137-145) mmol/L BUN 30 H (7-17) mg/dL Creatinine 1.25 H (0.52-1.04) mg/dL Est GFR (CKD-EPI)NonAf (60.0-200.0) BUN/Creatinine Ratio (12.00-20.00) Ratio Glucose 137 H (74-99) mg/dL Calcium (8.7-10.3) mg/dL AST (13-35) U/L C-Reactive Protein (<1.0) mg/dL Total Protein (6.2-8.2) g/dL Albumin (3.8-4.9) g/dL Albumin/Globulin Ratio (1.60-3.17) g/dL Amylase <30 L (30-110) U/L Lipase 14 L (23-300) U/L Urine Appearance Turbid H (Clear) Urine Protein 2+ H (Negative) Urine Glucose (UA) Trace H (Negative) Urine Blood Large H (Negative) Urine Bilirubin 1+ H (Negative) Ur Leukocyte Esterase Large H (Negative) Urine RBC >182 H (0-5) /hpf Urine WBC >182 H (0-5) /hpf Urine WBC Clumps Many H (None) /hpf Ur Squamous Epith Cells 20 H (0-4) /hpf Urine Bacteria Many H (None) /hpf Hyaline Casts 102 H (0-2) /lpf Urine Mucus Rare H (None) /hpf 09/29/21 09/29/21 09/29/21 Range/Units 17:26 17:26 17:26 RBC (4.10-5.20) X 10*6/uL Hgb (12.0-15.0) g/dL Hct (37.2-46.3) % MCV (80.0-100.0) fL MCH (27.0-32.0) pg RDW (11.5-14.5) % Lymphocytes # (0.90-5.00) X 10*3/uL Lymphocytes # (Manual) (1.0-4.8) k/uL Monocytes # (0.20-1.00) X 10*3/uL Metamyelocytes # (Man) (0) k/uL ESR 78 H (0-20) mm/hr D-Dimer 7.95 H (<0.60) mg/L FEU Sodium (137-145) mmol/L BUN (7-17) mg/dL Creatinine (0.52-1.04) mg/dL Est GFR (CKD-EPI)NonAf (60.0-200.0) BUN/Creatinine Ratio (12.00-20.00) Ratio Glucose (74-99) mg/dL Calcium (8.7-10.3) mg/dL AST (13-35) U/L C-Reactive Protein 35.2 H (<1.0) mg/dL Total Protein (6.2-8.2) g/dL Albumin (3.8-4.9) g/dL Albumin/Globulin Ratio (1.60-3.17) g/dL Amylase (30-110) U/L Lipase (23-300) U/L Urine Appearance (Clear) Urine Protein (Negative) Urine Glucose (UA) (Negative) Urine Blood (Negative) Urine Bilirubin (Negative) Ur Leukocyte Esterase (Negative) Urine RBC (0-5) /hpf Urine WBC (0-5) /hpf Urine WBC Clumps (None) /hpf Ur Squamous Epith Cells (0-4) /hpf Urine Bacteria (None) /hpf Hyaline Casts (0-2) /lpf Urine Mucus (None) /hpf 07/04/22 07/04/22 Range/Units 06:22 06:22 RBC 3.62 L (4.10-5.20) X 10*6/uL Hgb 11.7 L (12.0-15.0) g/dL Hct 36.5 L (37.2-46.3) % MCV 100.8 H (80.0-100.0) fL MCH 32.3 H (27.0-32.0) pg RDW 14.7 H (11.5-14.5) % Lymphocytes # 0.79 L (0.90-5.00) X 10*3/uL Lymphocytes # (Manual) (1.0-4.8) k/uL Monocytes # 1.18 H (0.20-1.00) X 10*3/uL Metamyelocytes # (Man) (0) k/uL ESR (0-20) mm/hr D-Dimer (<0.60) mg/L FEU Sodium (137-145) mmol/L BUN (7-17) mg/dL Creatinine (0.52-1.04) mg/dL Est GFR (CKD-EPI)NonAf 53.2 L (60.0-200.0) BUN/Creatinine Ratio 23.90 H (12.00-20.00) Ratio Glucose (74-99) mg/dL Calcium 8.4 L (8.7-10.3) mg/dL AST 7 L (13-35) U/L C-Reactive Protein (<1.0) mg/dL Total Protein 5.8 L (6.2-8.2) g/dL Albumin 3.2 L (3.8-4.9) g/dL Albumin/Globulin Ratio 1.23 L (1.60-3.17) g/dL Amylase (30-110) U/L Lipase (23-300) U/L Urine Appearance (Clear) Urine Protein (Negative) Urine Glucose (UA) (Negative) Urine Blood (Negative) Urine Bilirubin (Negative) Ur Leukocyte Esterase (Negative) Urine RBC (0-5) /hpf Urine WBC (0-5) /hpf Urine WBC Clumps (None) /hpf Ur Squamous Epith Cells (0-4) /hpf Urine Bacteria (None) /hpf Hyaline Casts (0-2) /lpf Urine Mucus (None) /hpf Microbiology - Last 24 Hours (Table) 09/29/21 14:16 Urine Culture - Preliminary Urine,Voided Assessment and Plan Plan: 1patient presented hospital with abdominal pain nausea vomiting and diarrhea in this patient who is postop total abdominal hysterectomy now with evidence of possible mechanical small bowel obstruction on the basis of the CT and will need to call for the enteric gram-negative both aerobes and anaerobes to the likely pathogen. 2patient did have a positive UA however no significant urinary symptoms. 3discontinue Rocephin. 4start the patient on Zosyn 3.375 g every 8 hours. We will follow on clinical condition and cultures to further adjust medication if needed Thank you for this consultation will follow this patient along with you Time with Patient: Greater than 30
[2021-10-01] MEDS: PIPERACILLIN-TAZOBACTAM 3.375 GM in SODIUM CHLORIDE 0.9% 100 ML IVPB SCH ×4 (00:44→23:35)
[2021-10-01] MEDS: LEVOTHYROXINE 50 MCG TAB PO SCH (02:58)
[2021-10-01] MEDS: PANTOPRAZOLE 40 MG/10 ML VIAL IVP SCH ×2 (08:00→19:59)
[2021-10-01] MEDS: SODIUM CHLORIDE 0.9% 1,000 ML IV SCH ×2 (08:01→20:15)
[2021-10-01 10:36] LABS: Basophils # (A) 0.05 X 10*3/uL (0.00-0.10); Basophils % (A) 0.6 %; Eosinophils # (A) 0.26 X 10*3/uL (0.04-0.35); HCT 39.8 % (37.2-46.3); Immature Grans, Automated 0.6 %; Lymphocytes # (A) 1.13 X 10*3/uL (0.90-5.00); Lymphocytes % (A) 13.1 %; MCH 30.6 pg (27.0-32.0); MCHC 30.2 g/dL (32.0-37.0); MCV 101.5 fL (80.0-97.0); Mean Platelet Volume 11.4 fL (9.5-12.2); Monocytes # (A) 1.15 X 10*3/uL (0.20-1.00); Monocytes % (A) 13.3 %; NRBC Per 100 WBC 0 /100 WBCS (0.0-0.0); Neutrophils # (A) 6.01 X 10*3/uL (1.80-7.70); Neutrophils % (A) 69.4 %; Platelet Count 271 X 10*3/uL (140-440); RBC 3.92 X 10*6/uL (4.10-5.20); RDW 14.9 % (11.5-14.5); WBC 8.65 X 10*3/uL (4.50-10.00)
[2021-10-01 11:11] LABS: African American GFR (CKD) 94.8 (60.0-200.0); Albumin 3.6 g/dL (3.8-4.9); Albumin/Globulin Ratio 1.33 (1.60-3.17); Anion Gap 16.6 mmol/L (10.00-18.00); BUN/Creat Ratio 22.14 Ratio (12.00-20.00); Blood Urea Nitrogen 15.5 mg/dL (9.0-27.0); Calcium 8.6 mg/dL (8.7-10.3); Carbon Dioxide 22.4 mmol/L (20.0-27.5); Globulin 2.7 g/dL (1.6-3.3); Non-African American GFR(CKD) 81.8 (60.0-200.0); Potassium 3.4 mmol/L (3.5-5.5); Total Bilirubin 0.4 mg/dL (0.30-1.20); Total Protein 6.3 g/dL (6.2-8.2)
--- NOTE | 2021-10-01 12:03 | P.PN ---
Subjective Progress Note Date: 10/01/21 Principal diagnosis: Postoperative day #8, nausea and vomiting, suspect ileus. Patient has had no further nausea or emesis. Small amount of flatus noted. Main complaint is the thirst and fatigue. Objective - Vital Signs Vital signs: Vital Signs Temp 98.1 F 10/01/21 05:00 Pulse 84 10/01/21 09:26 Resp 16 10/01/21 08:50 BP 126/73 10/01/21 09:26 Pulse Ox 96 10/01/21 05:00 FiO2 Intake & Output 09/30/21 10/01/21 10/01/21 18:59 06:59 18:59 Intake Total 700 Output Total 0 Balance 700 Intake: Intake, IV Titration 700 Amount Piperacillin-Tazobactam 3 100 .375 gm In Sodium Chloride 0.9% 100 ml @ 25 mls/hr IVPB Q8HR [facility] Rx# :[id number] Sodium Chloride 0.9% 1, 600 000 ml @ 75 mls/hr IV . [id number] [facility] Rx#:[id number] Output: Emesis 0 Other: Voiding Method Toilet # Voids 3 2 # Bowel Movements 1 0 - Constitutional General appearance: Present: average body habitus, cooperative - EENT Eyes: Present: PERRLA ENT: Present: hearing grossly normal - Respiratory Respiratory: bilateral: CTA - Cardiovascular Rhythm: regular - Gastrointestinal Gastrointestinal Comment(s): Abdomen is softly distended, no guarding, minimal rebound left lower and mid quadrant. Positive bowel sounds. No CVA tenderness. - Integumentary Integumentary: Present: normal - Neurologic Neurologic: Present: CNII-XII intact - Musculoskeletal Musculoskeletal: Present: generalized weakness - Psychiatric Psychiatric: Present: A&O x's 3, appropriate affect, intact judgment & insight - Labs CBC & Chem 7: 10/01/21 06:25 10/01/21 06:25 Labs: Abnormal Lab Results - Last 24 Hours (Table) 10/01/21 10/01/21 Range/Units 06:25 06:25 RBC 3.92 L (4.10-5.20) X 10*6/uL MCV 101.5 H (80.0-97.0) fL MCHC 30.2 L (32.0-37.0) g/dL RDW 14.9 H (11.5-14.5) % Immature Gran # 0.05 H (0.00-0.04) X 10*3/uL Monocytes # 1.15 H (0.20-1.00) X 10*3/uL Sodium 146 H (135-145) mmol/L Potassium 3.4 L (3.5-5.5) mmol/L BUN/Creatinine Ratio 22.14 H (12.00-20.00) Ratio Calcium 8.6 L (8.7-10.3) mg/dL AST 7 L (13-35) U/L Albumin 3.6 L (3.8-4.9) g/dL Albumin/Globulin Ratio 1.33 L (1.60-3.17) g/dL Assessment and Plan Assessment: Postoperative day #8, nausea and vomiting, suspect postoperative ileus. Plan: Case discussed with the general medicine as well as general surgery. Upon consultation with Dr. Porras, an additional computed tomography scan with contrast has been ordered. We'll apply elastics stockings. Nothing by mouth at this time until CT report received. Morning labs drawn and pending. Time with Patient: Less than 30
[2021-10-01] MEDS: IOPAMIDOL CONTRAST (ORAL USE) VIAL PO PRN ×2 (12:09→12:55)
--- NOTE | 2021-10-01 13:47 | CT ---
EXAMINATION TYPE: CT abdomen pelvis wo con DATE OF EXAM: 10/01/2021 COMPARISON: 09/29/2021 HISTORY: Small bowel obstruction. post hysterectomy x5 days ago. CT DLP: 1061.1 mGycm Examination of the solid and hollow viscera is limited given the lack of contrast. FINDINGS: LUNG BASES: No evidence for nodule. No evidence for infiltrate. LIVER/GB: The gallbladder is unremarkable. No space-occupying hepatic lesion. PANCREAS: No pancreatic mass identified. No inflammatory process seen. SPLEEN: No evidence for splenomegaly. No intrasplenic lesions seen. ADRENALS: No adrenal nodules identified. No evidence for thickening. KIDNEYS: No evidence for renal mass. No nephrolithiasis. No hydronephrosis. BOWEL: Dilated small bowel has improved in the interval with maximal dimension at this time and 2.5 c m. Contrast is seen within the jejunal bowel loops. No contrast is seen within the ileal loops or wit hin the colon at this time. No evidence for free air or abscess. Colonic diverticulosis without diver ticulitis. Lymph nodes: No evidence for adenopathy greater than 1 cm. Abdominal aorta: Atheromatous changes seen. No evidence for aneurysm. Genital organs: The patient is status post hysterectomy approximately 8 days ago. Postoperative wen es are seen within the pelvis. No evidence for unusual collection or hemorrhage. No adnexal masses ar e appreciated. Other: No significant abnormality. IMPRESSION: 1. Dilated bowel noted previously likely reflect improving ileus.
[2021-10-01] MEDS: 0.9% NACL WITH KCL 20 MEQ/L 1,000 ML IV SCH (15:05)
--- NOTE | 2021-10-01 15:07 | PN ---
PROGRESS NOTE DATE OF SERVICE: 10/01/2021 This 80-year-old woman who was admitted after hysterectomy is having abdomen discomfort was thought to have postoperative abdominal ileus. The patient is still complaining of abdominal discomfort. Patient also had UTI. Antibiotics have been changed to Zosyn by Dr. Craig. Multiple consultants including Dr. Crews and Dr. Cadet are following the patient closely. No chest pain. No palpitations. PAST MEDICAL HISTORY: Reviewed. REVIEW OF SYSTEM: 14 point review of systems negative except as mentioned earlier. MEDICATIONS: Reviewed and include: Heparin, Zosyn, dose and the rest of the medication noted. PHYSICAL EXAMINATION: Pulse is 76, blood pressure 120/75, respiration 15. HEENT: Conjunctivae normal. Neck: No JVD. Cardiovascular: S1, S2 muffled. Respiration: Breath sounds diminished in the bases. Clear to auscultation. Abdomen: Soft. Mild diffuse distention. Mild diffuse tenderness. No rebound tenderness. No guarding. No rigidity. Bowel sounds diminished. No ascites. Legs are no edema. No swelling. Nervous system: No focal deficits. LABS: WBC 8.6, hemoglobin is 12. Rest of the labs are noted. D-dimer is 7.95. Sedimentation rate is 78. ASSESSMENT: 1. Acute abdominal distention possibly ileus. 2. Possible urinary tract infection. 3. Elevated D-dimer without any evidence of pulmonary embolism. 4. Rule out sepsis. 5. History of recent hysterectomy. 6. History of asthma. 7. History of chronic obstructive pulmonary disease. 8. Multiple medical issues. DISCUSSION AND RECOMMENDATIONS: Continue current medications, broad-spectrum IV antibiotics. Continue to monitor and follow closely with surgery and ADMINISTRATIVE PROJECT COORDINATOR. I had a detailed discussion with Dr. Crews on multiple occasions as well as Dr. Cadet. Dr. Crews is going to perform CT scan of the abdomen pelvis and continue to monitor. Dr. Craig input appreciated. Further recommendations to follow. The prognosis guarded. Discussed with the patient. MMODL / IJN: [id number] /
[2021-10-01] MEDS ORDERED: POTASSIUM CHLORIDE ER 20 MEQ TAB.ER PO SCH (16:00)
--- NOTE | 2021-10-01 17:33 | P.PN ---
Progress Note - Text Progress Note Date: 10/01/21 Patient stated that she had passed almost no flatus today. Repeat CAT scan of the abdomen was performed with oral contrast. The previously dilated small bowel has improved in caliber. The contrast remains in the jejunum. It is thought that she has a resolving ileus. On exam her vital signs are stable. Abdomen is soft. There is minimal tenderness. There is no rebound or guarding. Probable resolving ileus. There is no definite sign of small bowel obstruction currently.
[2021-10-01] MEDS: POTASSIUM CHLORIDE ER 20 MEQ TAB.ER PO SCH ×3 (17:40→17:51)
[2021-10-01] MEDS: HEPARIN SODIUM,PORCINE/PF 5,000 UNIT/0.5 ML SYRINGE SQ SCH (17:51)
--- NOTE | 2021-10-01 18:25 | CT ---
EXAMINATION TYPE: CT abdomen pelvis wo con DATE OF EXAM: 10/01/2021 COMPARISON: Today HISTORY: small bowel obstruction. rescan from earlier per Dr. Carr CT DLP: 1183.0 mGycm Automated exposure control for dose reduction was used. Images obtained from the diaphragm to the floor the pelvis with no contrast. Lung bases are clear of consolidation. There is some mild atelectasis at the posterior lung bases. No pleural effusion. Heart is top normal in size. No pericardial effusion. The stomach is intact. Splee n is intact. There is no pancreatic mass. Gallbladder appears normal. The bile ducts are not dilated. There is no adrenal mass. Kidneys have normal size. No hydronephrosis. There is 1 mm calculus lower p ole left kidney. There is no retroperitoneal adenopathy. There is tortuosity of the right common vargas c artery. The bladder distends smoothly. There is sigmoid diverticulosis. No diverticulitis. There is contrast-filled small bowel. Small bowel dilated up to 4 cm. There is contrast in the large bowel do wn to the proximal sigmoid colon. I do not see evidence for mechanical bowel obstruction. No free air. No ascites. No mesenteric edema. There is a second-degree L5-S1 spondylolisthesis with L 5 spondylolysis. No lumbar compression fracture. The bony pelvis is intact. The hip joints are intact . There is mild hip joint spur formation. Sacroiliac joints are intact. IMPRESSION: There is dilated small bowel and the contrast however has reached the descending colon and I do not s ee evidence for mechanical bowel obstruction. Small bowel pattern consistent with ileus. No transitio n point. There is colonic diverticulosis without diverticulitis. No adverse change compared to exam 4 hours ag o.
[2021-10-01] MEDS: ZOLPIDEM 5 MG TAB PO PRN (20:00)
[2021-10-01] MEDS: LORATADINE 10 MG TAB PO SCH (20:00)
[2021-10-02] MEDS: 0.9% NACL WITH KCL 20 MEQ/L 1,000 ML IV SCH ×2 (05:38→17:45)
[2021-10-02] MEDS: LEVOTHYROXINE 50 MCG TAB PO SCH (05:38)
[2021-10-02] MEDS: HEPARIN SODIUM,PORCINE/PF 5,000 UNIT/0.5 ML SYRINGE SQ SCH ×2 (07:11→23:32)
--- NOTE | 2021-10-02 07:55 | XR ---
EXAMINATION TYPE: XR chest 1V portable DATE OF EXAM: 10/02/2021 7:35 AM COMPARISON: Chest radiographs from 09/29/2021 TECHNIQUE: XR chest 1V portable Portable AP radiograph of the chest. CLINICAL INDICATION:Female, 80 years old with history of SOB; FINDINGS: Lungs/Pleura: Bibasilar atelectasis/scarring. No acute pneumothorax or pleural effusion. Pulmonary vascularity: Mild pulmonary vascular congestion. Heart/mediastinum: Cardiomediastinal silhouette is enlarged and stable. Musculoskeletal: No acute osseous pathology. IMPRESSION: Cardiomegaly and mild pulmonary vascular congestion. Correlate with BNP for congestive heart failure.
[2021-10-02] MEDS: PIPERACILLIN-TAZOBACTAM 3.375 GM in SODIUM CHLORIDE 0.9% 100 ML IVPB SCH ×2 (07:59→16:04)
[2021-10-02] MEDS: PANTOPRAZOLE 40 MG/10 ML VIAL IVP SCH ×2 (07:59→20:59)
--- NOTE | 2021-10-02 08:02 | P.PN ---
Subjective Progress Note Date: 10/02/21 Principal diagnosis: Postoperative day #10, postoperative ileus, resolving Patient reports chest pain after choking incident on meds yesterday. Chest x- ray pending. Positive watery stools, positive flatus. Abdominal pain improving. Objective - Vital Signs Vital signs: Vital Signs Temp 98.7 F 10/02/21 04:27 Pulse 78 10/02/21 04:27 Resp 16 10/02/21 04:27 BP 119/70 10/02/21 04:27 Pulse Ox 95 10/02/21 04:27 FiO2 Intake & Output 10/01/21 10/02/21 10/02/21 18:59 06:59 18:59 Intake Total 240 Balance 240 Intake: Oral 240 Other: Voiding Method Toilet # Voids 4 4 - Constitutional General appearance: Present: average body habitus, cooperative - EENT Eyes: Present: PERRLA ENT: Present: hearing grossly normal - Respiratory Respiratory: bilateral: CTA - Cardiovascular Rhythm: regular - Gastrointestinal Gastrointestinal Comment(s): Abdomen softly distended, no rebound or guarding, active bowel sounds. - Integumentary Integumentary: Present: normal - Neurologic Neurologic: Present: CNII-XII intact - Musculoskeletal Musculoskeletal: Present: strength equal bilaterally - Psychiatric Psychiatric: Present: A&O x's 3, appropriate affect, intact judgment & insight - Labs CBC & Chem 7: 10/01/21 06:25 10/01/21 06:25 Labs: Abnormal Lab Results - Last 24 Hours (Table) 10/01/21 10/01/21 Range/Units 06:25 06:25 RBC 3.92 L (4.10-5.20) X 10*6/uL MCV 101.5 H (80.0-97.0) fL MCHC 30.2 L (32.0-37.0) g/dL RDW 14.9 H (11.5-14.5) % Immature Gran # 0.05 H (0.00-0.04) X 10*3/uL Monocytes # 1.15 H (0.20-1.00) X 10*3/uL Sodium 146 H (135-145) mmol/L Potassium 3.4 L (3.5-5.5) mmol/L BUN/Creatinine Ratio 22.14 H (12.00-20.00) Ratio Calcium 8.6 L (8.7-10.3) mg/dL AST 7 L (13-35) U/L Albumin 3.6 L (3.8-4.9) g/dL Albumin/Globulin Ratio 1.33 L (1.60-3.17) g/dL Microbiology - Last 24 Hours (Table) 09/29/21 14:16 Urine Culture - Final Urine,Voided Assessment and Plan Assessment: Postoperative day #10, status post vaginal hysterectomy, ileus, resolving. Plan: We'll consider breathing treatment pending chest x-ray results. Likely advance diet today, pending general surgery's assessment. Preliminary plan would be for discharge home tomorrow. Time with Patient: Less than 30
[2021-10-02 09:03] LABS: Basophils # (A) 0.1 k/uL (0-0.2); Basophils % (A) 1 %; Eosinophils # (A) 0.3 k/uL (0-0.7); Eosinophils % (A) 3 %; HCT 37.8 % (34.0-46.0); Hypochromasia Slight; Lymphocytes % (A) 10 %; MCH 31.7 pg (25.0-35.0); MCHC 31.6 g/dL (31.0-37.0); MCV 100.3 fL (80.0-100.0); Monocytes # (A) 0.9 k/uL (0-1.0); Monocytes % (A) 10 %; Neutrophils # (A) 7.4 k/uL (1.3-7.7); Neutrophils % (A) 75 %; Platelet Count 256 k/uL (150-450); RBC 3.77 m/uL (3.80-5.40); RDW 13.6 % (11.5-15.5); WBC 9.9 k/uL (3.8-10.6)
[2021-10-02 09:19] LABS: ALT 12 U/L (4-34); AST 16 U/L (14-36); African American GFR (CKD) >90 (>60 ml/min/1.73 sqM); Albumin 3.3 g/dL (3.5-5.0); Albumin/Globulin Ratio 1.1; Alkaline Phosphatase 62 U/L (38-126); Anion Gap 11 mmol/L; Blood Urea Nitrogen 10 mg/dL (7-17); Calcium 8.5 mg/dL (8.4-10.2); Carbon Dioxide 23 mmol/L (22-30); Chloride 107 mmol/L (98-107); Globulin 2.9 g/dL; Glucose 112 mg/dL (74-99); Non-African American GFR(CKD) 84 (>60 ml/min/1.73 sqM); Potassium 3.5 mmol/L (3.5-5.1); Sodium 141 mmol/L (137-145); Total Bilirubin 0.8 mg/dL (0.2-1.3); Total Protein 6.2 g/dL (6.3-8.2)
[2021-10-02] MEDS ORDERED: FUROSEMIDE 10 MG/ML 4 ML VIAL IV STA (10:12)
[2021-10-02] MEDS ORDERED: ALBUTEROL NEBULIZED 2.5 MG/3 ML INHALATION SCH (13:00)
[2021-10-02] MEDS ORDERED: IPRATROPIUM-ALBUTEROL 3 ML NEB INHALATION PRN (13:07)
[2021-10-02 13:31] LABS: Prothrombin Time 10.8 sec (9.0-12.0)
--- NOTE | 2021-10-02 13:37 | P.PN ---
Subjective Progress Note Date: 10/02/21 CHIEF COMPLAINT: Ileus HISTORY OF PRESENT ILLNESS: Patient's ileus appears to be resolving. She is having loose bowel movements. Denies any nausea vomiting. Improvement in abdominal pain. She reports poor oral and take. She does not really like the clear liquid diet. Afebrile. WBC is 9.9 Hgb is 12 Patient seen and examined with Dr. batres PHYSICAL EXAM: VITAL SIGNS: Reviewed. GENERAL: Well-developed in no acute distress. HEENT: No sclera icterus. Extraocular movements grossly intact. Moist buccal mucosa. Head is atraumatic, normocephalic. ABDOMEN: Soft. Nondistended. NEUROLOGIC: Alert and oriented. Cranial nerves II through XII grossly intact. ASSESSMENT: 1. Resolving postoperative ileus 2. Status post vaginal hysterectomy 3. Possible UTI PLAN: -Advance diet to full liquids -Continue supportive care -Encourage patient to ambulate -Consult physical therapy Physician Pbx Wire Chief note has been reviewed by physician. Signing provider agrees with the documented findings, assessment, and plan of care. Objective - Vital Signs Vital signs: Vital Signs Temp 98 F 10/02/21 11:05 Pulse 82 10/02/21 11:32 Resp 18 10/02/21 11:05 BP 125/71 10/02/21 11:05 Pulse Ox 98 10/02/21 11:05 FiO2 Intake & Output 10/01/21 10/02/21 10/02/21 18:59 06:59 18:59 Intake Total 240 Output Total 1 Balance 240 -1 Intake: Oral 240 Output: Urine/Stool Mix 1 Other: Voiding Method Toilet Toilet # Voids 4 4 2 - Labs CBC & Chem 7: 10/02/21 08:35 10/02/21 08:35 Labs: Abnormal Lab Results - Last 24 Hours (Table) 10/02/21 10/02/21 Range/Units 08:35 08:35 RBC 3.77 L (3.80-5.40) m/uL MCV 100.3 H (80.0-100.0) fL Glucose 112 H (74-99) mg/dL Total Protein 6.2 L (6.3-8.2) g/dL Albumin 3.3 L (3.5-5.0) g/dL Microbiology - Last 24 Hours (Table) 09/29/21 14:16 Urine Culture - Final Urine,Voided
[2021-10-02] MEDS ORDERED: SODIUM CHLORIDE 0.9% 1,000 ML IV SCH (17:45)
[2021-10-02] MEDS ORDERED: 0.9% NACL WITH KCL 20 MEQ/L 1,000 ML IV SCH (18:00)
[2021-10-02] MEDS: IPRATROPIUM-ALBUTEROL 3 ML NEB INHALATION SCH (19:12)
[2021-10-02] MEDS: ZOLPIDEM 5 MG TAB PO PRN (20:59)
[2021-10-02] MEDS: LORATADINE 10 MG TAB PO SCH (20:59)
[2021-10-03] MEDS: PIPERACILLIN-TAZOBACTAM 3.375 GM in SODIUM CHLORIDE 0.9% 100 ML IVPB SCH ×2 (00:14→08:30)
[2021-10-03] MEDS: LEVOTHYROXINE 50 MCG TAB PO SCH (05:56)
[2021-10-03 07:08] VITALS: BP 119/70; RESP 16; TEMP 97.6
[2021-10-03] MEDS: IPRATROPIUM-ALBUTEROL 3 ML NEB INHALATION SCH ×2 (08:11→11:26)
--- NOTE | 2021-10-03 08:13 | P.PN ---
Subjective Progress Note Date: 10/03/21 Principal diagnosis: Postoperative ileus, resolving Patient continues to pass gas and has had small watery bowel movements. No abdominal pain. Better rested. No complaints this morning. Objective - Vital Signs Vital signs: Vital Signs Temp 97.6 F 10/03/21 07:06 Pulse 73 10/03/21 07:06 Resp 16 10/03/21 07:06 BP 119/70 10/03/21 07:06 Pulse Ox 95 10/03/21 07:54 FiO2 Intake & Output 10/02/21 10/03/21 10/03/21 18:59 06:59 18:59 Intake Total 240 100 Output Total 1801 Balance -1561 100 Intake: Intake, IV Titration 100 Amount Piperacillin-Tazobactam 3 100 .375 gm In Sodium Chloride 0.9% 100 ml @ 25 mls/hr IVPB Q8HR [facility] Rx# :[id number] Oral 240 Output: Urine 1800 Urine/Stool Mix 1 Other: Voiding Method Toilet # Voids 1 3 - Constitutional General appearance: Present: average body habitus, cooperative - EENT Eyes: Present: PERRLA ENT: Present: hearing grossly normal - Respiratory Respiratory: bilateral: CTA - Cardiovascular Rhythm: regular - Gastrointestinal Gastrointestinal Comment(s): Abdomen softly distended, improved. No rebound or guarding. Active bowel sounds. - Genitourinary Genitourinary Comment(s): Scant vaginal drainage, consistent with postoperative status - Neurologic Neurologic: Present: CNII-XII intact - Musculoskeletal Musculoskeletal: Present: gait normal - Labs CBC & Chem 7: 10/02/21 08:35 10/02/21 08:35 Labs: Abnormal Lab Results - Last 24 Hours (Table) 10/02/21 10/02/21 Range/Units 08:35 08:35 RBC 3.77 L (3.80-5.40) m/uL MCV 100.3 H (80.0-100.0) fL Glucose 112 H (74-99) mg/dL Total Protein 6.2 L (6.3-8.2) g/dL Albumin 3.3 L (3.5-5.0) g/dL Microbiology - Last 24 Hours (Table) 10/02/21 11:00 Urine Culture - Preliminary Urine,Clean Catch 09/29/21 14:16 Urine Culture - Final Urine,Voided Assessment and Plan Assessment: Postoperative ileus, resolving. Plan: From my perspective the patient is stable for discharge today. I am again advising full liquids, with very slow advancement over the next few days at home. Patient has an appointment to see me postoperatively and 6 days. Resume previous home medications. Follow-up with Gen. medicine as per recommendations. Time with Patient: Less than 30
[2021-10-03] MEDS: HEPARIN SODIUM,PORCINE/PF 5,000 UNIT/0.5 ML SYRINGE SQ SCH (08:22)
[2021-10-03] MEDS: PANTOPRAZOLE 40 MG/10 ML VIAL IVP SCH (08:31)
--- NOTE | 2021-10-03 09:12 | P.PN ---
Subjective Progress Note Date: 10/01/21 Principal diagnosis: Ileus and possible UTI Patient is a 80-year-old female who is status post was unable hysterectomy for postmenopausal bleeding subsequently presented to hospital with nausea vomiting abdominal pain and diarrhea in this patient did have evidence of ileus with initial consult for possible mechanical small bowel obstruction and did have a positive UA concerning for UTI On today's evaluation that is 10/01/2021, the patient denies having any fever or any chills, the patient is feeling slightly better, patient denies having any chest pain or shortness of breath or cough some nausea but no further vomiting abdominal pain decreased in intensity, and urinary symptoms have improved Objective - Vital Signs Vital signs: Vital Signs Temp 98.2 F 10/01/21 11:13 Pulse 76 10/01/21 16:40 Resp 15 10/01/21 16:40 BP 134/79 10/01/21 11:13 Pulse Ox 95 10/01/21 11:13 FiO2 Intake & Output 09/30/21 10/01/21 10/01/21 18:59 06:59 18:59 Intake Total 700 Output Total 0 Balance 700 Intake: Intake, IV Titration 700 Amount Piperacillin-Tazobactam 3 100 .375 gm In Sodium Chloride 0.9% 100 ml @ 25 mls/hr IVPB Q8HR [facility] Rx# :[id number] Sodium Chloride 0.9% 1, 600 000 ml @ 75 mls/hr IV . [id number] [facility] Rx#:[id number] Output: Emesis 0 Other: Voiding Method Toilet # Voids 3 2 # Bowel Movements 1 0 - Exam GENERAL DESCRIPTION: An elderly female lying in bed in no distress RESPIRATORY SYSTEM: Unlabored breathing , decreased breath sounds at bases HEART: S1 S2 regular rate and rhythm , ABDOMEN: Soft , no tenderness EXTREMITIES: No edema feet - Labs CBC & Chem 7: 10/02/21 08:35 10/02/21 08:35 Labs: Abnormal Lab Results - Last 24 Hours (Table) 10/01/21 10/01/21 Range/Units 06:25 06:25 RBC 3.92 L (4.10-5.20) X 10*6/uL MCV 101.5 H (80.0-97.0) fL MCHC 30.2 L (32.0-37.0) g/dL RDW 14.9 H (11.5-14.5) % Immature Gran # 0.05 H (0.00-0.04) X 10*3/uL Monocytes # 1.15 H (0.20-1.00) X 10*3/uL Sodium 146 H (135-145) mmol/L Potassium 3.4 L (3.5-5.5) mmol/L BUN/Creatinine Ratio 22.14 H (12.00-20.00) Ratio Calcium 8.6 L (8.7-10.3) mg/dL AST 7 L (13-35) U/L Albumin 3.6 L (3.8-4.9) g/dL Albumin/Globulin Ratio 1.33 L (1.60-3.17) g/dL Assessment and Plan (1) Ileus Current Visit: Yes Status: Acute Code(s): K56.7 - ILEUS, UNSPECIFIED SNOMED Code(s): 242764461 (2) UTI (urinary tract infection) Current Visit: Yes Status: Acute Code(s): N39.0 - URINARY TRACT INFECTION, SITE NOT SPECIFIED SNOMED Code(s): 79616567 Plan: 1patient presented hospital with abdominal pain nausea vomiting and diarrhea in this patient who is postop total abdominal hysterectomy now with evidence of possible mechanical small bowel obstruction on the basis of the CT and will need to cover for the enteric gram-negative both aerobes and anaerobes to the likely pathogen. 2patient did have a positive UA however no significant urinary symptoms. 3patient to continue with Zosyn 3.375 g every 8 hours in view of clinical improvement and while waiting for the culture finalized. Time with Patient: Less than 30
--- NOTE | 2021-10-03 09:13 | P.PN ---
Subjective Progress Note Date: 10/02/21 Principal diagnosis: Ileus and possible UTI Patient is a 80-year-old female who is status post was unable hysterectomy for postmenopausal bleeding subsequently presented to hospital with nausea vomiting abdominal pain and diarrhea in this patient did have evidence of ileus with initial consult for possible mechanical small bowel obstruction and did have a positive UA concerning for UTI On today's evaluation that is 10/02/2021, the patient remains to be afebrile, th e patient is breathing comfortably on room air, the patient denies having any chest pain or shortness of breath or cough some nausea but no further vomiting abdominal pain decreased in intensity, and urinary symptoms have improved Objective - Vital Signs Vital signs: Vital Signs Temp 98 F 10/02/21 11:05 Pulse 82 10/02/21 11:32 Resp 18 10/02/21 11:05 BP 125/71 10/02/21 11:05 Pulse Ox 98 10/02/21 11:05 FiO2 Intake & Output 10/01/21 10/02/21 10/02/21 18:59 06:59 18:59 Intake Total 240 Output Total 1 Balance 240 -1 Intake: Oral 240 Output: Urine/Stool Mix 1 Other: Voiding Method Toilet Toilet # Voids 4 4 1 - Exam GENERAL DESCRIPTION: An elderly female lying in bed in no distress RESPIRATORY SYSTEM: Unlabored breathing , decreased breath sounds at bases HEART: S1 S2 regular rate and rhythm , ABDOMEN: Soft , no tenderness EXTREMITIES: No edema feet - Labs CBC & Chem 7: 10/02/21 08:35 10/02/21 08:35 Labs: Abnormal Lab Results - Last 24 Hours (Table) 10/02/21 10/02/21 Range/Units 08:35 08:35 RBC 3.77 L (3.80-5.40) m/uL MCV 100.3 H (80.0-100.0) fL Glucose 112 H (74-99) mg/dL Total Protein 6.2 L (6.3-8.2) g/dL Albumin 3.3 L (3.5-5.0) g/dL Microbiology - Last 24 Hours (Table) 09/29/21 14:16 Urine Culture - Final Urine,Voided Assessment and Plan (1) Ileus Current Visit: Yes Status: Acute Code(s): K56.7 - ILEUS, UNSPECIFIED SNOMED Code(s): 124883870 (2) UTI (urinary tract infection) Current Visit: Yes Status: Acute Code(s): N39.0 - URINARY TRACT INFECTION, SITE NOT SPECIFIED SNOMED Code(s): 87867096 Plan: 1patient presented hospital with abdominal pain nausea vomiting and diarrhea in this patient who is postop total abdominal hysterectomy now with evidence of possible mechanical small bowel obstruction on the basis of the CT and will need to cover for the enteric gram-negative both aerobes and anaerobes to the likely pathogen. 2patient did have a positive UA however no significant urinary symptoms. 3patient seemed to showing overall clinical improvement to continue with Zosyn 3.375 g every 8 hours , however cultures has been negative so far will be able to transition short course of oral antibiotics on discharge Time with Patient: Less than 30
[2021-10-03 10:07] VITALS: PULSE 75
--- NOTE | 2021-10-03 10:25 | CA ---
Transthoracic Echo Report Name: Sakshi Doan Age: 80 Gender: F : 1940 Exam Date: 10/02/2021 13:47 Exam Location: [place] [facility] Ht (in): 61 Wt (lb): 223 Ordering Physician: Cheryl Carrero Attending/Referring Phys: Macie Cadet MD Leather Sorter Nydia Roger RDCS Procedure CPT: Indications: shortness of breath, vascular congestion Cardiac Hx: Technical Quality: Fair Contrast 1: Total Dose (mL): Contrast 2: Total Dose (mL): MEASUREMENTS (Male / Female) Normal Values 2D ECHO LV Diastolic Diameter PLAX 5.4 cm 4.2 - 5.9 / 3.9 - 5.3 cm LV Systolic Diameter PLAX 4.1 cm IVS Diastolic Thickness 1.6 cm 0.6 - 1.0 / 0.6 - 0.9 cm LVPW Diastolic Thickness 1.5 cm 0.6 - 1.0 / 0.6 - 0.9 cm LV Relative Wall Thickness 0.6 RV Internal Dim ED PLAX 2.6 cm LA Volume 183.6 cm??? 18 - 58 / 22 - 52 cm??? M-MODE Aortic Root Diameter MM 3.5 cm LA Systolic Diameter MM 5.8 cm LA Ao Ratio MM 1.6 AV Cusp Separation MM 1.9 cm DOPPLER AV Peak Velocity 179.8 cm/s AV Peak Gradient 12.9 mmHg LVOT Peak Velocity 109.1 cm/s LVOT Peak Gradient 4.8 mmHg MV Peak Velocity 254.5 cm/s MV Peak Gradient 25.9 mmHg MV Mean Velocity 188.7 cm/s MV Mean Gradient 15.4 mmHg MV Velocity Time Integral 77.6 cm MV Area PHT 1.4 cm??? Mitral E Point Velocity 222.1 cm/s Mitral A Point Velocity 220.1 cm/s Mitral E to A Ratio 1.0 MV Deceleration Time 190.8 ms TR Peak Velocity 195.3 cm/s TR Peak Gradient 15.3 mmHg Right Ventricular Systolic Press 20.3 mmHg FINDINGS Left Ventricle Moderately increased left ventricular wall thickness. Normal left ventricular systolic function with no obvious regional wall motion abnormalities. Left ventricular ejection fraction is estimated at 50-55 %. Right Ventricle Normal right ventricular size. Right Atrium Normal right atrial size. Left Atrium Severely increased left atrial volume. Severely increased left atrial area. No evidence for an atrial septal defect. Mitral Valve Severe mitral annular calcification. Mild mitral regurgitation. Moderate mitral stenosis. Aortic Valve Trileaflet aortic valve. No aortic valve stenosis or regurgitation. Aortic valve sclerosis. Tricuspid Valve Structurally normal tricuspid valve. Mild tricuspid regurgitation. Pulmonic Valve Structurally normal pulmonic valve. Trace pulmonic regurgitation. Pericardium No pericardial effusion. Aorta Normal size aortic root and proximal ascending aorta. CONCLUSIONS Normal left ventricular dimension and systolic function. Concentric left ventricular hypertrophy Severe mitral annular calcification. Moderate mitral stenosis. Severely dilated left atrium Aortic sclerosis with no stenosis or regurgitation Previewed by: Dr. Leif Alexander MD (Electronically Signed) Final Date: 03 October 2021 10:24
--- NOTE | 2021-10-03 13:57 | P.PN ---
Subjective Progress Note Date: 10/03/21 CHIEF COMPLAINT: Ileus HISTORY OF PRESENT ILLNESS: Patient's ileus appears to be resolving. She is having loose bowel movements. Denies any nausea vomiting. Improvement in abdominal pain. Patient tolerated the full liquid diet. She is anticipating discharge later today. Afebrile. WBC 9.9 Hgb 12.0 platelets 256 Patient seen and examined with Dr. batres PHYSICAL EXAM: VITAL SIGNS: Reviewed. GENERAL: Well-developed in no acute distress. HEENT: No sclera icterus. Extraocular movements grossly intact. Moist buccal mucosa. Head is atraumatic, normocephalic. ABDOMEN: Soft. Nondistended. NEUROLOGIC: Alert and oriented. Cranial nerves II through XII grossly intact. ASSESSMENT: 1. Resolving postoperative ileus 2. Status post vaginal hysterectomy 3. Possible UTI PLAN: -Patient can be discharge from surgical standpoint -Advance diet to regular -Continue supportive care Physician Tray Filler note has been reviewed by physician. Signing provider agrees with the documented findings, assessment, and plan of care. Objective - Vital Signs Vital signs: Vital Signs Temp 97.6 F 10/03/21 07:06 Pulse 75 10/03/21 08:25 Resp 16 10/03/21 08:25 BP 119/70 10/03/21 07:06 Pulse Ox 95 10/03/21 07:54 FiO2 Intake & Output 10/02/21 10/03/21 10/03/21 18:59 06:59 18:59 Intake Total 240 100 Output Total 1801 Balance -1561 100 Intake: Intake, IV Titration 100 Amount Piperacillin-Tazobactam 3 100 .375 gm In Sodium Chloride 0.9% 100 ml @ 25 mls/hr IVPB Q8HR [facility] Rx# :[id number] Oral 240 Output: Urine 1800 Urine/Stool Mix 1 Other: Voiding Method Toilet Toilet # Voids 1 3 - Labs CBC & Chem 7: 10/02/21 08:35 10/02/21 08:35 Labs: Microbiology - Last 24 Hours (Table) 10/02/21 11:00 Urine Culture - Preliminary Urine,Clean Catch
--- NOTE | 2021-10-03 19:22 | P.DS ---
Providers Date of admission: 09/29/21 16:18 Expected date of discharge: 10/03/21 Attending physician: Enoch Mcdonnell Consults: 09/29/21 16:16 Consult Physician Routine Consulting Provider: Macie Cadet Consult Reason/Comments: recent surgery Do you want consulting provider notified?: Yes 09/29/21 16:49 Consult Physician Routine Consulting Provider: Kevon Crews Consult Reason/Comments: ileus?? Do you want consulting provider notified?: Yes 09/30/21 12:28 Consult Physician Routine Consulting Provider: Marie Craig Consult Reason/Comments: sepsis?? Do you want consulting provider notified?: Yes Primary care physician: Gisele Hoffmann Hospital Course: Final Diagnosis Acute abdominal distention possibly ileus Acute urinary tract infection, present on admission Elevated D dimer without evidence of PE History of recent hysterectomy History of COPD with acute exacerbation Morbid obesity with a BMI of 42.3 No code Discharge disposition Patient is being discharged in a stable condition with guarded prognosis to home. Patient will follow-up with Dr. Hoffmann and Dr. Cadet in the outpatient setting upon discharge. Patient is to finish a course of Augmentin bid for one week. Total time taken is greater than 35 minutes. Hospital course This is a 80-year-old female who was recently admitted with abdominal pain and recently underwent hysterectomy with Dr. Cadet. Dr. Cadet evaluated the patient and followed closely during hospitalization. Patient has follow up appointment with her in the office already scheduled for this upcoming week. Patient was ev aluated by infectious disease and general surgery as well and continued on abx and bowel regimen for possible post operative ileus. Patient is passing gas and having bowel movements with no further reports of abdominal pain. Patient encouraged to continue full liquid diet until surgical follow up and monitor intake and output closely. Follow up labs recommended. Currently no reports of chest pain, worsening shortness of breath, or palpitations. Patient is afebrile. No reports of nausea or vomiting and patient is tolerating diet. Patient will be discharged home today. guarded prognosis. Physical exam: Gen: This is a 80 year old female, awake alert and oriented x3, well developed, well nourished, obese HEENT: Head is atraumatic, normocephalic. Pupils equal, round. Sclerae is anicteric. NECK: Supple. No JVD. No lymphadenopathy. No thyromegaly. LUNGS: diminished breath sounds bilaterally with no Wheezing or course rhonchi. No intercostal retractions. HEART: Regular rate and rhythm. No murmur. ABDOMEN: Soft. obese. Bowel sounds are present. No masses. some lower quadrant tenderness on deep palpation but improved with no guarding or rigidity noted. EXTREMITIES: No pedal edema. No calf tenderness. NEUROLOGICAL: Patient is awake, alert and oriented x3. Cranial nerves 2 through 12 are grossly intact. Please refer to medication reconciliation sheet for a list of medications. The impression and plan of care has been dictated by Cheryl Carrero, Nurse Practitioner as directed. Dr. Michelle MD I have performed a history and examination and MDM of this patient, discussed the same with the dictator, and agree with the dictator's assessment and plan as written ,documented as a scribe. Based on total visit time, I have performed more than 50% of the visit. Patient Condition at Discharge: Fair Plan - Discharge Summary Discharge Rx Participant: No New Discharge Prescriptions: New Pantoprazole Sodium [Protonix] 40 mg PO DAILY #30 tab Amoxic-Pot Clav 875-125Mg [Augmentin 875-125] 1 tab PO BID 7 Days #14 tab Continue Ibuprofen [Motrin] 200 - 400 mg PO Q6HR PRN PRN Reason: Pain Lovastatin [Mevacor] 20 mg PO HS diphenhydrAMINE [Benadryl] 25 mg PO HS Cetirizine HCl [Zyrtec] 10 mg PO HS lisinopriL [Zestril] 2.5 mg PO HS Levothyroxine Sodium [Synthroid] 50 mcg PO DAILY Cholecalciferol [Vitamin D3 (25 Mcg = 1000 Iu)] 50 mcg PO HS Discharge Medication List Ibuprofen [Motrin] 200 - 400 mg PO Q6HR PRN 12/21/13 [History] Lovastatin [Mevacor] 20 mg PO HS 12/21/13 [History] Cetirizine HCl [Zyrtec] 10 mg PO HS 12/30/17 [History] diphenhydrAMINE [Benadryl] 25 mg PO HS 12/30/17 [History] lisinopriL [Zestril] 2.5 mg PO HS 07/19/18 [History] Levothyroxine Sodium [Synthroid] 50 mcg PO DAILY 09/18/21 [History] Cholecalciferol [Vitamin D3 (25 Mcg = 1000 Iu)] 50 mcg PO HS 09/29/21 [History] Amoxic-Pot Clav 875-125Mg [Augmentin 875-125] 1 tab PO BID 7 Days #14 tab 10/03/21 [Rx] Pantoprazole Sodium [Protonix] 40 mg PO DAILY #30 tab 10/03/21 [Rx] Follow up Appointment(s)/Referral(s): Gisele Hoffmann DO [Primary Care Provider] - 10/08/21 9:20 am Ambulatory/Diagnostic Orders: Complete Blood Count w/diff [LAB.AMB] Time Frame: 3 Days, Location: None Selected Patient Instructions/Handouts: Amoxicillin/Clavulanate Potassium (By mouth), Pantoprazole (By mouth), Urinary Tract Infection in Women (DC), Ileus (DC) Activity/Diet/Wound Care/Special Instructions: Follow up with Dr. Cadet as pervious scheduled. Activity Limited until follow-up Follow-up with primary care provider on discharge Continue antibiotics until finished Recommend repeat labs in 2-3 days Follow-up with oncologist as scheduled Diet Regular take slowly with meals eat what your able (Like soft Foods) Discharge Disposition: HOME SELF-CARE
== END 2021-10-03 13:34 | disposition home or self-care (01) | DRG 394 ==
LOC: EC 13:04 → 5NMEDONC 16:18
PROVIDERS: ADMIT Hospitalist; ATTEND Hospitalist
PROC: 0D9670Z Drainage of Stomach with Drainage Device, Via Natural or Artificial Opening (ICD-10-PCS; principal; 2021-09-30)
DX: K91.89 Other postprocedural complications and disorders of digestive system (principal); K56.609 Unspecified intestinal obstruction, unspecified as to partial versus complete obstruction; N17.9 Acute kidney failure, unspecified; N39.0 Urinary tract infection, site not specified; Z16.11 Resistance to penicillins; Z16.24 Resistance to multiple antibiotics; Z16.21 Resistance to vancomycin; Z68.41 Body mass index [BMI] 40.0-44.9, adult; J44.9 Chronic obstructive pulmonary disease, unspecified; I10 Essential (primary) hypertension; E66.01 Morbid (severe) obesity due to excess calories; R63.0 Anorexia; E78.5 Hyperlipidemia, unspecified; M19.90 Unspecified osteoarthritis, unspecified site; H40.9 Unspecified glaucoma; B95.2 Enterococcus as the cause of diseases classified elsewhere; R79.89 Other specified abnormal findings of blood chemistry; R53.1 Weakness; Z96.652 Presence of left artificial knee joint; Z87.891 Personal history of nicotine dependence; Z72.89 Other problems related to lifestyle; Z98.41 Cataract extraction status, right eye; Z90.710 Acquired absence of both cervix and uterus; Z79.899 Other long term (current) drug therapy; Z79.890 Hormone replacement therapy; Z85.820 Personal history of malignant melanoma of skin; Z98.42 Cataract extraction status, left eye; Z98.51 Tubal ligation status; Z98.890 Other specified postprocedural states; Z80.3 Family history of malignant neoplasm of breast; Z82.49 Family history of ischemic heart disease and other diseases of the circulatory system; Z80.0 Family history of malignant neoplasm of digestive organs
CPT/HCPCS: 36415; 71045; 71275; 74176; 80053; 81001; 82150; 83605; 83690; 83880; 84484; 85025; 85379; 85610; 85652; 85730; 86140; 87077; 87086; 87186; 87502; 87635; 93005; 93306; 94640; 94760; 96361; 96365; 96375; 99285

== ENCOUNTER 2022-04-10 00:23 | Inpatient (IN) | payer MEDICARE ==
[2022-04-10] MEDS ORDERED: ALBUTEROL NEBULIZED 2.5 MG/3 ML INHALATION STA (00:30)
[2022-04-10] MEDS ORDERED: SODIUM CHLORIDE 0.9% 1,000 ML IV STA ×3 (00:30→01:46)
[2022-04-10] MEDS ORDERED: IPRATROPIUM 0.5 MG/2.5 ML NEBU INHALATION STA (00:30)
--- NOTE | 2022-04-10 00:30 | ED ---
SOB HPI - General Chief Complaint: Shortness of Breath Stated Complaint: SHANNAN Time Seen by Provider: 04/10/22 00:28 Source: patient, EMS, RN notes reviewed, old records reviewed Mode of arrival: EMS Limitations: no limitations - History of Present Illness Initial Comments: This is a 81-year-old female to the emergency department for evaluation. Patient presenting in significant distress severe distress. Patient having severe difficulty breathing with hypoxia on arrival. EMS was been patient and on BiPAP secondary to shortness of breath and low oxygen levels. Patient admits to shortness of breath here in the ER without chest pain. She has several history of asthma and COPD. Patient denies sick contacts or travel history. Patient does states she also feels feverish MD Complaint: shortness of breath, cough, "asthma attack", anxiety -: hour(s) Severity: severe Severity scale (1-10): 10 Consistency: constant Improves With: rest Worsens With: exertion, movement Known History Of: COPD, asthma Context: recent URI, recent illness Associated Symptoms: fever, cough, sputum production Treatments Prior to Arrival: oxygen, bronchodilator, NIPPV - Related Data Home Medications Medication Instructions Recorded Confirmed Ibuprofen [Motrin] 200 - 400 mg PO Q6HR PRN 12/21/13 09/29/21 Lovastatin [Mevacor] 20 mg PO HS 12/21/13 09/29/21 Cetirizine HCl [Zyrtec] 10 mg PO HS 12/30/17 09/29/21 diphenhydrAMINE [Benadryl] 25 mg PO HS 12/30/17 09/29/21 lisinopriL [Zestril] 2.5 mg PO HS 07/19/18 09/29/21 Levothyroxine Sodium [Synthroid] 50 mcg PO DAILY 09/18/21 09/29/21 Cholecalciferol [Vitamin D3 (25 50 mcg PO HS 09/29/21 09/29/21 Mcg = 1000 Iu)] Previous Rx's Medication Instructions Recorded Amoxic-Pot Clav 875-125Mg 1 tab PO BID 7 Days #14 tab 10/03/21 [Augmentin 875-125] Pantoprazole Sodium [Protonix] 40 mg PO DAILY #30 tab 10/03/21 Allergies Allergy/AdvReac Type Severity Reaction Status Date / Time No Known Allergies Allergy Verified 09/29/21 16:32 Review of Systems ROS Statement: Those systems with pertinent positive or pertinent negative responses have been documented in the HPI. ROS Other: All systems not noted in ROS Statement are negative. Past Medical History Past Medical History: Asthma, Cancer, COPD, Eye Disorder, Hyperlipidemia, Hypertension, Osteoarthritis (OA), Respiratory Disorder, Thyroid Disorder Additional Past Medical History / Comment(s): HX CHILDHOOD ASTHMA, MELANOMA, hx migraines, ASTHMATIC BRONCHITIS, GLAUCOMA.skin cancer rt leg, post menopausal bleeding History of Any Multi-Drug Resistant Organisms: None Reported Date of last positivie culture/infection: 10/02/21 MDRO Source:: Urine Past Surgical History: Hysterectomy, Joint Replacement, Orthopedic Surgery, Tubal Ligation Additional Past Surgical History / Comment(s): REMOVAL OF MELANOMA RIGHT LEG, D&C's, LEFT KNEE ARTHROSCOPY, BILATERAL CATARACT REMOVAL with stents for glaucoma, left knee replacement, skin cancer removed rt leg Past Anesthesia/Blood Transfusion Reactions: No Reported Reaction Additional Past Anesthesia/Blood Transfusion Reaction / Comment(s): No hx blood transfusion. Past Psychological History: No Psychological Hx Reported Smoking Status: Former smoker Past Alcohol Use History: Daily Past Drug Use History: None Reported - Past Family History Mother Family Medical History: Cancer Additional Family Medical History / Comment(s): BREAST CANCER. Sister(s) Family Medical History: Cancer, Deep Vein Thrombosis (DVT) Additional Family Medical History / Comment(s): BREAST CANCER x 2 Father Family Medical History: Cancer Additional Family Medical History / Comment(s): COLON CANCER. General Exam Limitations: no limitations General appearance: alert, anxious, in distress Head exam: Present: atraumatic, normocephalic, normal inspection Eye exam: Present: normal appearance, PERRL, EOMI. Absent: scleral icterus, conjunctival injection, periorbital swelling ENT exam: Present: normal exam, mucous membranes dry Neck exam: Present: normal inspection. Absent: tenderness, meningismus, lymphadenopathy Respiratory exam: Present: respiratory distress, wheezes, decreased breath sounds, prolonged expiratory. Absent: rales, rhonchi, stridor Cardiovascular Exam: Present: tachycardia, normal heart sounds. Absent: systolic murmur, diastolic murmur, rubs, gallop, clicks GI/Abdominal exam: Present: soft, normal bowel sounds. Absent: distended, tenderness, guarding, rebound, rigid Extremities exam: Present: normal inspection, full ROM, normal capillary refill. Absent: tenderness, pedal edema, joint swelling, calf tenderness Back exam: Present: normal inspection Neurological exam: Present: alert, oriented X3, CN II-XII intact Psychiatric exam: Present: normal affect, normal mood Skin exam: Present: warm, dry, intact, normal color. Absent: rash Course Vital Signs 04/10/22 04/10/22 04/10/22 00:26 00:29 00:55 Temperature 102.3 F H Pulse Rate 129 H 117 H Respiratory 36 H Rate Blood Pressure 151/100 O2 Sat by Pulse 94 L Oximetry Fraction of 50 Inspired Oxygen (FIO2) 04/10/22 04/10/22 04/10/22 01:00 01:04 01:05 Temperature Pulse Rate 113 H 118 H 118 H Respiratory 26 H Rate Blood Pressure 123/67 O2 Sat by Pulse 98 Oximetry Fraction of Inspired Oxygen (FIO2) 04/10/22 04/10/22 04/10/22 01:14 01:15 01:16 Temperature Pulse Rate 119 H 119 H 118 H Respiratory Rate Blood Pressure O2 Sat by Pulse Oximetry Fraction of Inspired Oxygen (FIO2) 04/10/22 04/10/22 04/10/22 01:29 01:30 01:37 Temperature 100.9 F H Pulse Rate 118 H 118 H 121 H Respiratory 22 Rate Blood Pressure 116/70 O2 Sat by Pulse 99 Oximetry Fraction of Inspired Oxygen (FIO2) - Reevaluation(s) Reevaluation #1: 04/10/22 00:40 Medical record is reviewed Reevaluation #2: 04/10/22 01:47 Patient has mild improvement here in the ER Reevaluation #3: 04/10/22 01:48 Patient informed results and questions answered Reevaluation #4: 04/10/22 01:48 Differential Dyspnea: Coronary syndrome, arrhythmia, tamponade, asthma, COPD, pulmonary embolism, pneumonia, pneumothorax, pulmonary effusion, anaphylaxis, diabetic ketoacidosis, flailed chest, pulmonary contusion, diaphragmatic rupture, anemia, neuromuscular, this is not meant to be an all-inclusive list. Reevaluation #5: 04/10/22 01:48 Was pt. sent in by a medical professional or institution? @ -no Did you speak to anyone other than the patient for history? @ -EMS Did you review nursing and triage notes? @ -agree Were old charts reviewed? @ -no Differential Diagnosis? @ -sob EKG interpreted by me (3pts min.)? @ -yes X-rays interpreted by me (1pt min.)? @ -yes CT interpreted by me (1pt min.)? @ -[none] U/S interpreted by me (1pt. min.)? @ -[none] What testing was considered but not performed? (CT, X-rays, U/S, labs)? Why? @ no What meds were considered but not given? Why? @ -[none] Did you discuss the management of the patient with other professionals? @ -no Did you reconcile home meds? @ -[none] Was smoking cessation discussed for >3mins.? @ -[none] Was critical care preformed (if so, how long)? @ -[none] Were there social determinants of health that impacted care today? How? (Homelessness, low income, unemployed, alcoholism, drug addiction, transportation, low edu. Level, literacy, decrease access to med. care, shelter, rehab)? @ -no Was there de-escalation of care discussed even if they declined? (Discuss DNR or withdrawal of care, Hospice)? @ -no What co-morbidities impacted this encounter? (DM, HTN, Smoking, COPD, CAD, Cancer, CVA, Hep., AIDS, mental health diagnosis, sleep apnea, morbid obesity)? @ -COPD Was patient admitted / discharged? @ -admit Undiagnosed new problem with uncertain prognosis? @ -[none] Drug Therapy requiring intensive monitoring for toxicity (Heparin, Nitro, Insulin, Cardizem)? @ -[none] Were any procedures done? @ -[none] Diagnosis/symptom? @ -[default] Acute, or Chronic, or Acute on Chronic? @ -[default] Uncomplicated (without systemic symptoms) or Complicated (systemic symptoms)? @ -[default] Side effects of treatment? @ -[none] Exacerbation, Progression, or Severe Exacerbation] @ -[no] Poses a threat to life or bodily function? @ -[no] - Consultations Consultation #1: spoke w ANGELA who are ok for admission Procedures - Sepsis Sepsis Focused Exam #1 Time Sepsis Criteria Met: 01:00 Sepsis Focused Exam Date: 04/10/22 Sepsis Focused Exam Time: 04:00 Sepsis Focused Exam Complete: Yes Vital Signs & RN Notes Reviewed: Yes Capillary Refill: < 2 Seconds: Fingers, Toes Peripheral Pulses: Normal: Radial (R), Radial (L), Posterior Tibialis (R), Posterior Tibialis (L), Dorsalis Pedis (R), Dorsalis Pedis (L) Skin Color: Normal for Patient Respiratory Exam: respiratory distress, wheezes, rhonchi, decreased breath sounds Cardiovascular Exam: tachycardia Medical Decision Making - Medical Decision Making 81 Female in severe respiratory distress found of fever pneumonia, care was severe COPD. Patient be admitted for continued cardiopulmonary support IV antibiotics fever control hydration - Lab Data Result diagrams: 04/10/22 00:33 04/10/22 00:33 Lab Results 04/10/22 04/10/22 04/10/22 Range/Units 00:33 00:33 00:33 WBC 14.2 H (3.8-10.6) k/uL RBC 4.20 (3.80-5.40) m/uL Hgb 13.0 (11.4-16.0) gm/dL Hct 40.8 (34.0-46.0) % MCV 97.2 (80.0-100.0) fL MCH 31.0 (25.0-35.0) pg MCHC 31.9 (31.0-37.0) g/dL RDW 14.0 (11.5-15.5) % Plt Count 229 (150-450) k/uL MPV 8.1 Neutrophils % 89 % Lymphocytes % 6 % Monocytes % 2 % Eosinophils % 2 % Basophils % 0 % Neutrophils # 12.7 H (1.3-7.7) k/uL Lymphocytes # 0.8 L (1.0-4.8) k/uL Monocytes # 0.3 (0-1.0) k/uL Eosinophils # 0.3 (0-0.7) k/uL Basophils # 0.1 (0-0.2) k/uL PT 9.9 (9.0-12.0) sec INR 0.9 (<1.2) APTT 22.2 (22.0-30.0) sec Sodium 140 (137-145) mmol/L Potassium 4.1 (3.5-5.1) mmol/L Chloride 108 H (98-107) mmol/L Carbon Dioxide 19 L (22-30) mmol/L Anion Gap 13 mmol/L BUN 17 (7-17) mg/dL Creatinine 0.61 (0.52-1.04) mg/dL Est GFR (CKD-EPI)AfAm >90 (>60 ml/min/1.73 sqM) Est GFR (CKD-EPI)NonAf 85 (>60 ml/min/1.73 sqM) Glucose 169 H (74-99) mg/dL Calcium 9.0 (8.4-10.2) mg/dL Magnesium 1.6 (1.6-2.3) mg/dL Total Bilirubin 0.9 (0.2-1.3) mg/dL AST 53 H (14-36) U/L ALT 34 (4-34) U/L Alkaline Phosphatase 81 (38-126) U/L Troponin I (0.000-0.034) ng/mL NT-Pro-B Natriuret Pep pg/mL Total Protein 7.4 (6.3-8.2) g/dL Albumin 4.3 (3.5-5.0) g/dL Influenza Type A (PCR) (Not Detectd) Influenza Type B (PCR) (Not Detectd) RSV (PCR) (Not Detectd) SARS-CoV-2 (PCR) (Not Detectd) 04/10/22 04/10/22 04/10/22 Range/Units 00:33 00:33 00:40 WBC (3.8-10.6) k/uL RBC (3.80-5.40) m/uL Hgb (11.4-16.0) gm/dL Hct (34.0-46.0) % MCV (80.0-100.0) fL MCH (25.0-35.0) pg MCHC (31.0-37.0) g/dL RDW (11.5-15.5) % Plt Count (150-450) k/uL MPV Neutrophils % % Lymphocytes % % Monocytes % % Eosinophils % % Basophils % % Neutrophils # (1.3-7.7) k/uL Lymphocytes # (1.0-4.8) k/uL Monocytes # (0-1.0) k/uL Eosinophils # (0-0.7) k/uL Basophils # (0-0.2) k/uL PT (9.0-12.0) sec INR (<1.2) APTT (22.0-30.0) sec Sodium (137-145) mmol/L Potassium (3.5-5.1) mmol/L Chloride (98-107) mmol/L Carbon Dioxide (22-30) mmol/L Anion Gap mmol/L BUN (7-17) mg/dL Creatinine (0.52-1.04) mg/dL Est GFR (CKD-EPI)AfAm (>60 ml/min/1.73 sqM) Est GFR (CKD-EPI)NonAf (>60 ml/min/1.73 sqM) Glucose (74-99) mg/dL Calcium (8.4-10.2) mg/dL Magnesium (1.6-2.3) mg/dL Total Bilirubin (0.2-1.3) mg/dL AST (14-36) U/L ALT (4-34) U/L Alkaline Phosphatase (38-126) U/L Troponin I <0.012 (0.000-0.034) ng/mL NT-Pro-B Natriuret Pep 1160 pg/mL Total Protein (6.3-8.2) g/dL Albumin (3.5-5.0) g/dL Influenza Type A (PCR) Not Detected (Not Detectd) Influenza Type B (PCR) Not Detected (Not Detectd) RSV (PCR) Not Detected (Not Detectd) SARS-CoV-2 (PCR) Not Detected (Not Detectd) - EKG Data -: EKG Interpreted by Me (EKG is sinus tachycardia 120 PA 162 QRS 104 QTc 457) - Radiology Data Radiology results: report reviewed (Chest x-rays positive for pneumonia), image reviewed Critical Care Time Critical Care Time: Yes Total Critical Care Time: 31 Disposition Clinical Impression: Acute exacerbation of chronic obstructive pulmonary disease, Asthma with status asthmaticus, Acute respiratory distress syndrome in adult, Acute respiratory failure, Hypoxia, Pneumonia, Fever, Sepsis Disposition: ADMITTED IP TO THIS HOSP Condition: Serious Is patient prescribed a controlled substance at d/c from ED?: No Referrals: Gisele Salinas DO [Primary Care Provider] - 1-2 days Time of Disposition: 01:50
[2022-04-10] MEDS ORDERED: ACETAMINOPHEN TAB 500 MG TAB PO STA (00:35)
[2022-04-10] MEDS ORDERED: IBUPROFEN 800 MG TAB PO STA (00:35)
[2022-04-10 00:42] LABS: Basophils # (A) 0.1 k/uL (0-0.2); Basophils % (A) 0 %; Eosinophils # (A) 0.3 k/uL (0-0.7); Eosinophils % (A) 2 %; HCT 40.8 % (34.0-46.0); Lymphocytes # (A) 0.8 k/uL (1.0-4.8); Lymphocytes % (A) 6 %; MCHC 31.9 g/dL (31.0-37.0); MCV 97.2 fL (80.0-100.0); Mean Platelet Volume 8.1; Monocytes # (A) 0.3 k/uL (0-1.0); Monocytes % (A) 2 %; Neutrophils # (A) 12.7 k/uL (1.3-7.7); Neutrophils % (A) 89 %; Platelet Count 229 k/uL (150-450); WBC 14.2 k/uL (3.8-10.6)
[2022-04-10 00:53] LABS: ALT 34 U/L (4-34); AST 53 U/L (14-36); African American GFR (CKD) >90 (>60 ml/min/1.73 sqM); Albumin 4.3 g/dL (3.5-5.0); Alkaline Phosphatase 81 U/L (38-126); Anion Gap 13 mmol/L; Blood Urea Nitrogen 17 mg/dL (7-17); Carbon Dioxide 19 mmol/L (22-30); Chloride 108 mmol/L (98-107); Glucose 169 mg/dL (74-99); Magnesium 1.6 mg/dL (1.6-2.3); Non-African American GFR(CKD) 85 (>60 ml/min/1.73 sqM); Potassium 4.1 mmol/L (3.5-5.1); Sodium 140 mmol/L (137-145); Total Bilirubin 0.9 mg/dL (0.2-1.3); Total Protein 7.4 g/dL (6.3-8.2)
[2022-04-10 00:57] LABS: INR 0.9 (<1.2); Partial Thromboplastin Time 22.2 sec (22.0-30.0); Prothrombin Time 9.9 sec (9.0-12.0)
--- NOTE | 2022-04-10 01:22 | XR ---
EXAMINATION TYPE: XR chest 1V portable DATE OF EXAM: 04/10/2022 COMPARISON: 10/02/2021 HISTORY: Short of breath TECHNIQUE: FINDINGS: Heart is enlarged. There is some pulmonary interstitial and mild airspace edema. There is s ome coalescent density right lung base. There are chest leads. Mediastinum is normal. IMPRESSION: There are some pulmonary edema which is new compared to old exam. There is right lower lo be patchy infiltrate which is new compared to old exam and consistent with acute pneumonia. Congestiv e heart failure also possible.
[2022-04-10] MEDS ORDERED: IPRATROPIUM-ALBUTEROL 3 ML NEB INHALATION STA ×3 (01:44→07:14)
[2022-04-10] MEDS ORDERED: ALBUTEROL NEBULIZED 2.5 MG/3 ML INHALATION PRN (01:44)
[2022-04-10] MEDS ORDERED: PNEUMONIA PROTOCOL UTILIZED 1 EACH MISC PO PRN (01:44)
[2022-04-10] MEDS ORDERED: AZITHROMYCIN 500 MG in SODIUM CHLORIDE 0.9% 250 ML IVPB STA (01:44)
[2022-04-10] MEDS: SODIUM CHLORIDE 0.9% 1,000 ML IV SCH ×2 (02:12→08:44)
[2022-04-10] MEDS: IPRATROPIUM-ALBUTEROL 3 ML NEB INHALATION SCH ×4 (07:29→19:57)
[2022-04-10] MEDS: FUROSEMIDE 10 MG/ML 4 ML VIAL IV SCH ×2 (09:54→17:21)
[2022-04-10] MEDS: MIDODRINE 5 MG TAB PO SCH ×2 (09:54→16:58)
[2022-04-10] MEDS: ENOXAPARIN 40 MG/0.4 ML SYRINGE SQ SCH (09:54)
--- NOTE | 2022-04-10 10:03 | P.HPIM ---
History of Present Illness This is a pleasant 81 old female with past medical history of COPD/asthma, hyperlipidemia, hypothyroidism, Osteoarthritis, migraine Her PCP is Dr. Hoffmann and welt stitch cleaner is Dr. ambrocio. Patient is not on home oxygen Patient presents because of worsening dyspnea more than one week 1 week, also she has cough and phlegms getting worse and is more yellow today. She denies chest pain. She denies any GI or urinary symptoms. No adequate weakness or numbness She quit smoking 15 years ago, occasional alcohol, no illicit drug Patient is febrile on admission 102.3. Blood pressure on the low side on admission currently improved 111/64, patient is mildly tachypneic and tachycardic on admission and she is saturating 95-97% on 4 L oxygen Patient has leukocytosis of 14.2 INR is normal. Lactic acid mildly elevated. BMP and liver enzymes are unremarkable. Troponin is negative and proBNP 1160. Chest x-ray: Possible CHF and possible right lower lobe pneumonia On admission patient received IV fluids and antibiotics with ceftriaxone and Zithromax. Also placed on IV Lasix. Review of Systems Review of systems CONSTITUTIONAL: No fever, no malaise, no fatigue. HEENT: No recent visual problems or hearing problems. Denied any sore throat. CARDIOVASCULAR: No orthopnea, PND, no palpitations, no syncope. PULMONARY: No chest wall tenderness, no hemoptysis. GASTROINTESTINAL: No diarrhea, no nausea, no vomiting, no abdominal pain. Normoactive bowel sounds. NEUROLOGICAL: No headaches, no weakness, no numbness. HEMATOLOGICAL: Denies any bleeding or petechiae. GENITOURINARY: Denies any burning micturition, frequency, or urgency. MUSCULOSKELETAL/RHEUMATOLOGICAL: Denies any joint pain, swelling, or any muscle pain. ENDOCRINE: Denies any polyuria or polydipsia. Past Medical History Past Medical History: Asthma, Cancer, COPD, Eye Disorder, Hyperlipidemia, Hypertension, Osteoarthritis (OA), Respiratory Disorder, Thyroid Disorder Additional Past Medical History / Comment(s): Asthmatic bronchitis, recently received lasix twice d/t breathing difficulty and pedal edema/pt denies chf diagnosis, melanoma removed R leg, diverticular disease, colitis, post menopausal bleeding with eventual hysterectomy, UTI, migraines which stopped after menopause, hypothyroid, bilateral eye glaucoma/bilateral eye stents. History of Any Multi-Drug Resistant Organisms: None Reported Date of last positivie culture/infection: 7/6/22 MDRO Source:: Urine Past Surgical History: Hysterectomy, Joint Replacement, Orthopedic Surgery, Tubal Ligation Additional Past Surgical History / Comment(s): D & Cs, R leg skin cancer (melanoma) removed, L knee arthroscopy and arthroplasty, colonoscopy, bilateral eye cataract removal/stents for glaucoma. Past Anesthesia/Blood Transfusion Reactions: No Reported Reaction Additional Past Anesthesia/Blood Transfusion Reaction / Comment(s): No hx blood transfusion. Smoking Status: Former smoker - Past Family History Mother Family Medical History: Cancer Additional Family Medical History / Comment(s): BREAST CANCER. Sister(s) Family Medical History: Cancer, Deep Vein Thrombosis (DVT) Additional Family Medical History / Comment(s): BREAST CANCER x 2 Father Family Medical History: Cancer Additional Family Medical History / Comment(s): COLON CANCER. Medications and Allergies Home Medications Medication Instructions Recorded Confirmed Type Ibuprofen [Motrin] 200 - 400 mg PO Q6HR PRN 12/21/13 04/10/22 History Lovastatin [Mevacor] 20 mg PO HS 12/21/13 04/10/22 History Cetirizine HCl [Zyrtec] 10 mg PO HS 12/30/17 04/10/22 History diphenhydrAMINE [Benadryl] 25 mg PO HS 12/30/17 04/10/22 History lisinopriL [Zestril] 2.5 mg PO HS 07/19/18 04/10/22 History Levothyroxine Sodium [Synthroid] 50 mcg PO DAILY 09/18/21 04/10/22 History Cholecalciferol [Vitamin D3 (25 50 mcg PO HS 09/29/21 04/10/22 History Mcg = 1000 Iu)] Albuterol Nebulized [Ventolin 2.5 mg INHALATION RT-Q4H PRN 04/10/22 04/10/22 History Nebulized] Albuterol Sulfate [Albuterol 1 puff PO RT-Q4H PRN 04/10/22 04/10/22 History Sulfate Hfa] Budesonide/Glycopyr/Formoterol 2 puff INHALATION RT-BID 04/10/22 04/10/22 History [Breztri Aerosphere Inhaler] Ipratropium Nebulized [Atrovent 0.5 mg INHALATION RT-Q4H PRN 04/10/22 04/10/22 History Nebulized 0.2 MG/ML] Allergies Allergy/AdvReac Type Severity Reaction Status Date / Time No Known Allergies Allergy Verified 04/10/22 08:42 Physical Exam Vitals: Vital Signs Temp Pulse Resp BP Pulse Ox FiO2 04/10/22 08:54 20 04/10/22 07:16 93 97 04/10/22 06:00 96 16 111/64 97 04/10/22 05:00 106 H 16 94/50 95 04/10/22 04:15 50 04/10/22 04:00 105 H 24 97/56 96 04/10/22 03:00 115 H 22 94/57 96 04/10/22 02:42 117 H 04/10/22 02:24 121 H 04/10/22 02:23 121 H 04/10/22 02:14 117 H 04/10/22 02:00 122 H 24 104/70 94 L 04/10/22 01:37 121 H 04/10/22 01:30 100.9 F H 118 H 22 116/70 99 04/10/22 01:29 118 H 04/10/22 01:16 118 H 04/10/22 01:15 119 H 04/10/22 01:14 119 H 04/10/22 01:05 118 H 04/10/22 01:04 118 H 04/10/22 01:00 113 H 26 H 123/67 98 04/10/22 00:55 117 H 04/10/22 00:29 102.3 F H 04/10/22 00:26 129 H 36 H 151/100 94 L 50 Intake and Output 04/09/22 04/10/22 04/10/22 22:59 06:59 14:59 Other: Weight 90.718 kg 90.718 kg GENERAL: The patient is alert and oriented x3, not in any acute distress. Well developed, well nourished. HEENT: Pupils are round and equally reacting to light. EOMI. No scleral icterus. No conjunctival pallor. Normocephalic, atraumatic. No pharyngeal erythema. No thyromegaly. CARDIOVASCULAR: S1 and S2 present. No murmurs, rubs, or gallops. -PULMONARY: Chest is clear to auscultation, no wheezing. Right basal crackles. Harsh breath sounds. Mildly tachypneic ABDOMEN: Soft, nontender, nondistended, normoactive bowel sounds. No palpable organomegaly. MUSCULOSKELETAL: No joint swelling or deformity. EXTREMITIES: No cyanosis, clubbing, or pedal edema. NEUROLOGICAL: Gross neurological examination did not reveal any focal deficits. SKIN: No rashes. no petechiae. Results CBC & Chem 7: 04/10/22 00:33 04/10/22 00:33 Labs: Abnormal Lab Results - Last 24 Hours (Table) 04/10/22 04/10/22 04/10/22 Range/Units 00:33 00:33 02:03 WBC 14.2 H (3.8-10.6) k/uL Neutrophils # 12.7 H (1.3-7.7) k/uL Lymphocytes # 0.8 L (1.0-4.8) k/uL Chloride 108 H (98-107) mmol/L Carbon Dioxide 19 L (22-30) mmol/L Glucose 169 H (74-99) mg/dL Plasma Lactic Acid [place]de 2.3 H* (0.7-2.0) mmol/L AST 53 H (14-36) U/L 04/10/22 04/10/22 Range/Units 05:20 08:15 WBC (3.8-10.6) k/uL Neutrophils # (1.3-7.7) k/uL Lymphocytes # (1.0-4.8) k/uL Chloride (98-107) mmol/L Carbon Dioxide (22-30) mmol/L Glucose (74-99) mg/dL Plasma Lactic Acid [place] 2.5 H* 2.4 H* (0.7-2.0) mmol/L AST (14-36) U/L Thrombosis Risk Factor Assmnt - Choose All That Apply Any of the Below Risk Factors Present?: Yes Each Factor Represents 1 point: Abnormal pulmonary function (COPD), Obesity (BMI >25), Serious lung disease incl. pneumonia (< 1month) Other Risk Factors: Yes Each Risk Factor Represents 2 Points: Malignancy Each Risk Factor Represents 3 Points: Age 75 years or older, Family history of DVT/PE Other congenital or acquired thrombophilia - If yes, enter type in comment: No Thrombosis Risk Factor Assessment Total Risk Factor Score: 11 Thrombosis Risk Factor Assessment Level: High Risk Assessment and Plan Assessment: Community acquired pneumonia sepsis with fever, tachypnea and tachycardia Acute hypoxic respiratory failure Hypotension secondary to above COPD Hypertension Hypothyroidism Hyperlipidemia History of migraine History of posterior arthritis Plan: Continue with antibiotics Continue with a bronchodilator and oxygen as needed Pulmonary consult Continue with IV Lasix Check echocardiogram Start low-dose midodrine Labs and medication were reviewed.. Continue same treatment. Continue with symptomatic treatment. Resume home medication. Monitor labs and vitals. DVT and GI prophylaxis. Further recommendations as per clinical course of the patient DVT prophylaxis: Subcutaneous Lovenox GI Prophylaxis: Pepcid PT/OT: Pending Prognosis is guarded
--- NOTE | 2022-04-10 11:43 | P.CNPUL ---
History of Present Illness Consult date: 04/10/22 Requesting physician: Ganesh Loaiza Reason for consult: dyspnea, COPD Chief complaint: Shortness of breath History of present illness: This is a very pleasant 81-year-old female patient with history of hypertension, hyperlipidemia, mild intermittent chronic bronchial asthma, hypothyroidism, his tory of melanoma resected from right leg, former smoker 50 years however quit 15 years ago. She is known to have COPD. She presented to the emergency room shortly after midnight today with worsening shortness of breath cough and congestion. She states she did have trouble laying flat in bed. EMS found her to have low O2 saturations and placed her on BiPAP. She was initially on 12/6 and 50% FiO2 and transitioned to oral liters nasal cannula currently saturation is 98%. X-ray revealed evidence of pulmonary edema and a new right lower lobe patchy infiltrate. White count 14.2. Hemoglobin 13.0. Platelets 229. INR 0.9. Sodium 140. Potassium 4.1. Bicarb 19. BUN 17. Creatinine 0.61. Glucose was 69. Lactic acid 2.4. AST 53, ALT 34. ProBNP 1160. Pro-calcitonin 1.62. Influenza screen negative. RSV screen negative. COVID-19 screen negative. She is seen today in the emergency department. Currently sitting up on a stretcher. Awake and alert in no acute distress. Feeling a bit better this morning. She does admit to some yellow blood-tinged sputum. She has been initiated on ceftriaxone and azithromycin. Review of Systems REVIEW OF SYSTEMS: CONSTITUTIONAL: Denies any recent significant weight loss or weight gain. EYES: Denies change in vision. EARS, NOSE, MOUTH, THROAT: Denies headaches, denies sore throat. CARDIOVASCULAR: Denies chest pain, palpitations or syncopal episodes. RESPIRATORY: Positive for shortness of breath, cough, congestion no hemoptysis. GASTROINTESTINAL: Denies change in appetite, denies abdominal pain GENITOURINARY: Denies hematuria, denies infections. MUSKULOSKELETAL: Denies pain, denies swelling. INTEGUMENTARY: Denies rash, denies eczema. NEUROLOGICAL: Denies recent memory loss, no recent seizure activity. PSYCHIATRIC: Denies anxiety, denies depression. HEMATOLOGIC/LYMPHATIC: Denies anemia, denies enlarged lymph nodes. Past Medical History Past Medical History: Asthma, Cancer, COPD, Eye Disorder, Hyperlipidemia, Hypertension, Osteoarthritis (OA), Respiratory Disorder, Thyroid Disorder Additional Past Medical History / Comment(s): Asthmatic bronchitis, recently received lasix twice d/t breathing difficulty and pedal edema/pt denies chf diagnosis, melanoma removed R leg, diverticular disease, colitis, post menopausal bleeding with eventual hysterectomy, UTI, migraines which stopped after menopause, hypothyroid, bilateral eye glaucoma/bilateral eye stents. History of Any Multi-Drug Resistant Organisms: None Reported Date of last positivie culture/infection: 10/02/21 MDRO Source:: Urine Past Surgical History: Hysterectomy, Joint Replacement, Orthopedic Surgery, Tubal Ligation Additional Past Surgical History / Comment(s): D & Cs, R leg skin cancer (melanoma) removed, L knee arthroscopy and arthroplasty, colonoscopy, bilateral eye cataract removal/stents for glaucoma. Past Anesthesia/Blood Transfusion Reactions: No Reported Reaction Additional Past Anesthesia/Blood Transfusion Reaction / Comment(s): No hx blood transfusion. Smoking Status: Former smoker - Past Family History Mother Family Medical History: Cancer Additional Family Medical History / Comment(s): BREAST CANCER. Sister(s) Family Medical History: Cancer, Deep Vein Thrombosis (DVT) Additional Family Medical History / Comment(s): BREAST CANCER x 2 Father Family Medical History: Cancer Additional Family Medical History / Comment(s): COLON CANCER. Medications and Allergies Home Medications Medication Instructions Recorded Confirmed Type Ibuprofen [Motrin] 200 - 400 mg PO Q6HR PRN 12/21/13 04/10/22 History Lovastatin [Mevacor] 20 mg PO HS 12/21/13 04/10/22 History Cetirizine HCl [Zyrtec] 10 mg PO HS 12/30/17 04/10/22 History diphenhydrAMINE [Benadryl] 25 mg PO HS 12/30/17 04/10/22 History lisinopriL [Zestril] 2.5 mg PO HS 07/19/18 04/10/22 History Levothyroxine Sodium [Synthroid] 50 mcg PO DAILY 09/18/21 04/10/22 History Cholecalciferol [Vitamin D3 (25 50 mcg PO HS 09/29/21 04/10/22 History Mcg = 1000 Iu)] Albuterol Nebulized [Ventolin 2.5 mg INHALATION RT-Q4H PRN 04/10/22 04/10/22 History Nebulized] Albuterol Sulfate [Albuterol 1 puff PO RT-Q4H PRN 04/10/22 04/10/22 History Sulfate Hfa] Budesonide/Glycopyr/Formoterol 2 puff INHALATION RT-BID 04/10/22 04/10/22 History [Breztri Aerosphere Inhaler] Ipratropium Nebulized [Atrovent 0.5 mg INHALATION RT-Q4H PRN 04/10/22 04/10/22 History Nebulized 0.2 MG/ML] Allergies Allergy/AdvReac Type Severity Reaction Status Date / Time No Known Allergies Allergy Verified 04/10/22 08:42 Physical Exam Vitals: Vital Signs Temp Pulse Resp BP Pulse Ox FiO2 04/10/22 11:12 100 04/10/22 11:01 100 04/10/22 10:24 109 H 22 142/72 98 04/10/22 08:54 20 04/10/22 07:28 94 04/10/22 07:16 93 97 04/10/22 06:00 96 16 111/64 97 04/10/22 05:00 106 H 16 94/50 95 04/10/22 04:15 50 04/10/22 04:00 105 H 24 97/56 96 04/10/22 03:00 115 H 22 94/57 96 04/10/22 02:42 117 H 04/10/22 02:24 121 H 04/10/22 02:23 121 H 04/10/22 02:14 117 H 04/10/22 02:00 122 H 24 104/70 94 L 04/10/22 01:37 121 H 04/10/22 01:30 100.9 F H 118 H 22 116/70 99 04/10/22 01:29 118 H 04/10/22 01:16 118 H 04/10/22 01:15 119 H 04/10/22 01:14 119 H 04/10/22 01:05 118 H 04/10/22 01:04 118 H 04/10/22 01:00 113 H 26 H 123/67 98 04/10/22 00:55 117 H 04/10/22 00:29 102.3 F H 04/10/22 00:26 129 H 36 H 151/100 94 L 50 Intake and Output 04/09/22 04/10/22 04/10/22 22:59 06:59 14:59 Other: Weight 90.718 kg 90.718 kg GENERAL EXAM: Alert, pleasant 81-year-old female, on 4 L nasal cannula, comfortable in no apparent distress. HEAD: Normocephalic. EYES: Normal reaction of pupils, equal size. NOSE: Clear with pink turbinates. THROAT: No erythema or exudates. NECK: No masses, no JVD. CHEST: No chest wall deformity. LUNGS: Equal air entry with crackles in the bilateral bases right greater than left. CVS: S1 and S2 normal with audible murmur, regular rhythm. ABDOMEN: No hepatosplenomegaly, normal bowel sounds, no guarding or rigidity. SPINE: No scoliosis or deformity SKIN: No rashes CENTRAL NERVOUS SYSTEM: No focal deficits, tone is normal in all 4 extremities. EXTREMITIES: There is no peripheral edema. No clubbing, no cyanosis. Peripheral pulses are intact. Results - Laboratory Findings CBC and BMP: 04/10/22 00:33 04/10/22 00:33 PT/INR, D-dimer PT 9.9 sec (9.0-12.0) 04/10/22 00:33 INR 0.9 (<1.2) 04/10/22 00:33 Abnormal lab findings: Abnormal Labs 04/10/22 04/10/22 04/10/22 00:33 00:33 02:03 WBC 14.2 H Neutrophils # 12.7 H Lymphocytes # 0.8 L Chloride 108 H Carbon Dioxide 19 L Glucose 169 H Plasma Lactic Acid Clyde 2.3 H* AST 53 H Procalcitonin 04/10/22 04/10/22 04/10/22 05:20 08:15 08:15 WBC Neutrophils # Lymphocytes # Chloride Carbon Dioxide Glucose Plasma Lactic Acid Clyde 2.5 H* 2.4 H* AST Procalcitonin 1.62 H - Diagnostic Findings Chest x-ray: image reviewed Assessment and Plan Assessment: Acute hypoxemic respiratory failure secondary to an acute exacerbation of suspected diastolic congestive heart failure and possible early right lower lobe pneumonia and chest x-ray reveals evidence of pulmonary edema and some right lower lobe infiltrate. ProBNP 1160. ProCalcitonin 1.62. Acute exacerbation of chronic obstructive pulmonary disease secondary to above History of 50 years of smoking however quit 15 years ago History of moderate mitral stenosis and severe annular calcification Hypertension Hyperlipidemia Hypothyroidism History of melanoma, resected from right lower extremity Plan: The patient was seen and evaluated Chest x-ray, labs and medications reviewed Add Lasix 40 mg IV every 12 hours Obtain echocardiogram Continue antibiotics Continue DuoNeb inhalations Add Symbicort Add Medrol Dosepak Titrate the FiO2 as tolerated Follow-up chest x-ray in a.m. We will continue to follow and make further recommendations based on her clinical status I have personally seen and examined the patient, performed the documentation and the assessment and plan as written. Number of minutes spent on the visit: 20.
[2022-04-10] MEDS ORDERED: TEMAZEPAM 7.5 MG CAP PO PRN (17:01)
[2022-04-10] MEDS: SYMBICORT 160-4.5 MCG INHALER INHALATION SCH (21:34)
[2022-04-11] MEDS ORDERED: QUEtiapine 25 MG TAB PO STA (01:37)
[2022-04-11] MEDS: IPRATROPIUM-ALBUTEROL 3 ML NEB INHALATION SCH ×6 (04:03→19:31)
[2022-04-11] MEDS: MIDODRINE 5 MG TAB PO SCH (06:30)
[2022-04-11 07:48] LABS: Basophils % (A) 0 %; Eosinophils # (A) 0.1 k/uL (0-0.7); Eosinophils % (A) 0 %; HCT 35.3 % (34.0-46.0); HGB 11.2 gm/dL (11.4-16.0); Lymphocytes # (A) 0.6 k/uL (1.0-4.8); Lymphocytes % (A) 3 %; MCH 30.9 pg (25.0-35.0); MCHC 31.6 g/dL (31.0-37.0); MCV 97.6 fL (80.0-100.0); Mean Platelet Volume 8.5; Monocytes # (A) 0.8 k/uL (0-1.0); Monocytes % (A) 5 %; Neutrophils # (A) 16.5 k/uL (1.3-7.7); Neutrophils % (A) 91 %; Platelet Count 179 k/uL (150-450); RBC 3.62 m/uL (3.80-5.40); WBC 18.1 k/uL (3.8-10.6)
[2022-04-11 08:03] LABS: Calcium 8.2 mg/dL (8.4-10.2); Potassium 3.6 mmol/L (3.5-5.1)
[2022-04-11] MEDS: FUROSEMIDE 10 MG/ML 4 ML VIAL IV SCH ×2 (08:40→20:18)
[2022-04-11] MEDS: ENOXAPARIN 40 MG/0.4 ML SYRINGE SQ SCH (08:40)
[2022-04-11] MEDS: AZITHROMYCIN 500 MG in SODIUM CHLORIDE 0.9% 250 ML IVPB SCH (08:41)
[2022-04-11] MEDS: methylPREDNISolone 4 MG TAB TAPER PO SCH (08:41)
[2022-04-11] MEDS: SYMBICORT 160-4.5 MCG INHALER INHALATION SCH ×2 (08:48→19:31)
[2022-04-11] MEDS ORDERED: HYDROcodone/APAP 5-325MG 1 EACH TAB PO PRN (10:45)
--- NOTE | 2022-04-11 10:58 | CA ---
Transthoracic Echo Report Name: Sakshi Doan Age: 81 Gender: F : 1940 Exam Date: 04/10/2022 14:41 Exam Location: [facility] Ht (in): 62 Wt (lb): 200 Ordering Physician: Himanshu Velarde Attending/Referring Phys: Miller Helper Danika Montalvo, SHAHNAZ Procedure CPT: Indications: evaluate LV function Cardiac Hx: Technical Quality: Contrast 1: N/A Total Dose (mL): Contrast 2: Total Dose (mL): MEASUREMENTS (Male / Female) Normal Values 2D ECHO LV Diastolic Diameter PLAX 4.4 cm 4.2 - 5.9 / 3.9 - 5.3 cm LV Systolic Diameter PLAX 3.2 cm IVS Diastolic Thickness 1.6 cm 0.6 - 1.0 / 0.6 - 0.9 cm LVPW Diastolic Thickness 1.7 cm 0.6 - 1.0 / 0.6 - 0.9 cm LV Relative Wall Thickness 0.8 RV Internal Dim ED PLAX 4.3 cm LA Systolic Diameter LX 6.3 cm 3.0 - 4.0 / 2.7 - 3.8 cm M-MODE MV E Point Septal Separation 0.8 cm DOPPLER MV Peak Velocity 241.4 cm/s MV Peak Gradient 23.3 mmHg MV Mean Velocity 179.8 cm/s MV Mean Gradient 14.8 mmHg MV Velocity Time Integral 64.4 cm MV Area PHT 2.0 cm??? MV Deceleration Time 298.5 ms FINDINGS Left Ventricle Normal Left ventricular size, systolic function with no obvious regional wall motion abnormalities, Moderately increased left ventricular wall thickness. Left ventricular ejection fraction is estimated at 55 %. Right Ventricle Moderate right ventricular dilatation. Right ventricular systolic pressure within normal limits. Right Atrium Normal right atrial size. Left Atrium Severely increased left atrial diameter. Mitral Valve Moderate mitral stenosis. MV Peak gradient 29.2mmHg, Mv Mean gradient 14.8, MV mean Velocity 179.8cm/smild mitral regurgitation. Aortic Valve Aortic valve not well visualized. Tricuspid Valve Structurally normal tricuspid valve. Mild tricuspid regurgitation. Pulmonic Valve Pulmonic valve not well visualized. Pericardium Echo free space anterior to the right ventricle likely represents a fat pad. Aorta Aortic root and proximal ascending aorta not well visualized. CONCLUSIONS Normal LV size and systolic function. Ejection fraction is more than 55%. There is significant calcification of mitral valve leaflets with restriction suggestive of mild to moderate mitral stenosis. Aortic valve is poorly visualized but no significant velocity. An echo free space anteriorly may be present a fat pad no clearcut pericardial effusion. There is mild mitral and tricuspid insufficiency noted Previewed by: Dr. Cali Berg MD (Electronically Signed) Final Date: 11 April 2022 10:57
[2022-04-11] MEDS ORDERED: ACETAMINOPHEN TAB 325 MG TAB PO PRN (11:09)
--- NOTE | 2022-04-11 11:31 | P.PN ---
Subjective Progress Note Date: 04/11/22 This is a very pleasant 81-year-old female patient with history of hypertension, hyperlipidemia, mild intermittent chronic bronchial asthma, hypothyroidism, history of melanoma resected from right leg, former smoker 50 years however quit 15 years ago. She is known to have COPD. She presented to the emergency room shortly after midnight today with worsening shortness of breath cough and congestion. She states she did have trouble laying flat in bed. EMS found her to have low O2 saturations and placed her on BiPAP. She was initially on 12/6 and 50% FiO2 and transitioned to oral liters nasal cannula currently saturation is 98%. X-ray revealed evidence of pulmonary edema and a new right lower lobe patchy infiltrate. White count 14.2. Hemoglobin 13.0. Platelets 229. INR 0.9. Sodium 140. Potassium 4.1. Bicarb 19. BUN 17. Creatinine 0.61. Glucose was 69. Lactic acid 2.4. AST 53, ALT 34. ProBNP 1160. Pro-calcitonin 1.62. Influenza screen negative. RSV screen negative. COVID-19 screen negative. She is seen today in the emergency department. Currently sitting up on a stretcher. Awake and alert in no acute distress. Feeling a bit better this morning. She does admit to some yellow blood-tinged sputum. She has been initiated on ceftriaxone and azithromycin. The patient is seen today 04/11/2022 in follow-up on the selective care unit. She is currently sitting up in a chair. Awake and alert in no acute distress. Maintaining good O2 saturations in the 90s on 3 L/m per nasal cannula. Afebrile. Hemodynamically stable. Blood cultures reveal no growth to date. Wh ite count 8.1. Hemoglobin 11.2. Sodium 136. Potassium 3.6. BUN 17. Creatinine 0.74. Glucose 117. She is continued on DuoNeb inhalations, Symbicort, albuterol. Remains on antibiotics in the form of ceftriaxone and azithromycin. Continued on IV diuretics. Lovenox for DVT prophylaxis. Remains in negative balance. Objective - Vital Signs Vital signs: Vital Signs Temp 97.1 F L 04/11/22 11:17 Pulse 91 04/11/22 11:17 Resp 20 04/11/22 11:17 BP 102/56 04/11/22 11:17 Pulse Ox 96 04/11/22 11:17 FiO2 50 01/12/23 04:15 Intake & Output 04/10/22 04/11/22 04/11/22 18:59 06:59 18:59 Intake Total 247 10 Output Total 900 Balance -653 10 Weight 90.718 kg Intake: IV 10 10 Invasive Line 1 10 Invasive Line 2 10 Oral 237 0 Output: Urine 900 Other: Voiding Method Bedside Commode Bedside Commode Bedside Commode External Catheter External Catheter # Voids 1 - Exam GENERAL EXAM: Alert, 81-year-old female, on 4 L nasal cannula, up in a chair, comfortable in no apparent distress. HEAD: Normocephalic. EYES: Normal reaction of pupils, equal size. NOSE: Clear with pink turbinates. THROAT: No erythema or exudates. NECK: No masses, no JVD. CHEST: No chest wall deformity. LUNGS: Equal air entry with crackles in the bilateral bases right greater than left. CVS: S1 and S2 normal with audible murmur, regular rhythm. ABDOMEN: No hepatosplenomegaly, normal bowel sounds, no guarding or rigidity. SPINE: No scoliosis or deformity SKIN: No rashes CENTRAL NERVOUS SYSTEM: No focal deficits, tone is normal in all 4 extremities. EXTREMITIES: There is no peripheral edema. No clubbing, no cyanosis. P eripheral pulses are intact. - Labs CBC & Chem 7: 04/11/22 06:44 04/11/22 06:44 Labs: Abnormal Lab Results - Last 24 Hours (Table) 04/10/22 04/10/22 04/11/22 Range/Units 12:34 15:47 06:44 WBC 18.1 H (3.8-10.6) k/uL RBC 3.62 L (3.80-5.40) m/uL Hgb 11.2 L (11.4-16.0) gm/dL Neutrophils # 16.5 H (1.3-7.7) k/uL Lymphocytes # 0.6 L (1.0-4.8) k/uL Sodium (137-145) mmol/L Glucose (74-99) mg/dL Plasma Lactic Acid Clyde 3.5 H* 2.5 H* (0.7-2.0) mmol/L Calcium (8.4-10.2) mg/dL 04/11/22 Range/Units 06:44 WBC (3.8-10.6) k/uL RBC (3.80-5.40) m/uL Hgb (11.4-16.0) gm/dL Neutrophils # (1.3-7.7) k/uL Lymphocytes # (1.0-4.8) k/uL Sodium 136 L (137-145) mmol/L Glucose 117 H (74-99) mg/dL Plasma Lactic Acid Clyde (0.7-2.0) mmol/L Calcium 8.2 L (8.4-10.2) mg/dL Microbiology - Last 24 Hours (Table) 04/10/22 02:00 Blood Culture - Preliminary Blood No Growth after 24 hours 04/10/22 01:50 Blood Culture - Preliminary Blood No Growth after 24 hours Assessment and Plan Assessment: Acute hypoxemic respiratory failure secondary to an acute exacerbation of diastolic congestive heart failure and possible early right lower lobe pneumonia and chest x-ray reveals evidence of pulmonary edema and some right lower lobe infiltrate. ProBNP 1160. Moderate mitral stenosis. ProCalcitonin 1.62. Continued on IV diuretics, antibiotics Acute exacerbation of chronic obstructive pulmonary disease secondary to above History of 50 years of smoking however quit 15 years ago History of moderate mitral stenosis and severe annular calcification Hypertension Hyperlipidemia Hypothyroidism History of melanoma, resected from right lower extremity Plan: The patient was seen and evaluated Labs and medications reviewed Continue Lasix 40 mg IV every 12 hours Continue antibiotics Continue bronchodilators, steroids Titrate the FiO2 as tolerated Follow-up chest x-ray in a.m. We will continue to follow I have personally seen and examined the patient, performed the documentation and the assessment and plan as written. Number of minutes spent on the visit: 10.
--- NOTE | 2022-04-11 11:31 | P.PN ---
Subjective This is a pleasant 81 old female with past medical history of COPD/asthma, hyperlipidemia, hypothyroidism, Osteoarthritis, migraine Her PCP is Dr. Hoffmann and hospitality coordinator is Dr. ambrocio. Patient is not on home oxygen Patient presents because of worsening dyspnea more than one week 1 week, also she has cough and phlegms getting worse and is more yellow today. She denies chest pain. She denies any GI or urinary symptoms. No adequate weakness or numbness She quit smoking 15 years ago, occasional alcohol, no illicit drug Patient is febrile on admission 102.3. Blood pressure on the low side on admission currently improved 111/64, patient is mildly tachypneic and tachycardic on admission and she is saturating 95-97% on 4 L oxygen Patient has leukocytosis of 14.2 INR is normal. Lactic acid mildly elevated. BMP and liver enzymes are unremarkable. Troponin is negative and proBNP 1160. Chest x-ray: Possible CHF and possible right lower lobe pneumonia On admission patient received IV fluids and antibiotics with ceftriaxone and Zithromax. Also placed on IV Lasix. 04/11/2022 Patient is awake and alert, sitting in chair, with some tachypnea. Chest discomfort wheezing or crepitation, no significant leg swelling She's afebrile today, still slightly tachypneic and required 4 L/m Leukocytosis is worsened but she is on steroids. Currently continued on Zithromax and ceftriaxone, IV Lasix and Medrol Dosepak. Ejection fraction more than 55% We will order cardiology consult [place] for pain Objective - Vital Signs Vital signs: Vital Signs Temp 97.1 F L 04/11/22 11:17 Pulse 91 04/11/22 11:17 Resp 20 04/11/22 11:17 BP 102/56 04/11/22 11:17 Pulse Ox 96 04/11/22 11:17 FiO2 50 04/10/22 04:15 Intake & Output 04/10/22 04/11/22 04/11/22 18:59 06:59 18:59 Intake Total 247 10 Output Total 900 Balance -653 10 Weight 90.718 kg Intake: IV 10 10 Invasive Line 1 10 Invasive Line 2 10 Oral 237 0 Output: Urine 900 Other: Voiding Method Bedside Commode Bedside Commode Bedside Commode External Catheter External Catheter # Voids 1 - Exam GENERAL: The patient is alert and oriented x3, not in any acute distress. Well developed, well nourished. HEENT: Pupils are round and equally reacting to light. EOMI. No scleral icterus. No conjunctival pallor. Normocephalic, atraumatic. No pharyngeal erythema. No thyromegaly. CARDIOVASCULAR: S1 and S2 present. No murmurs, rubs, or gallops. -PULMONARY: Chest is clear to auscultation, no wheezing. Right basal crackles. Harsh breath sounds. Mildly tachypneic ABDOMEN: Soft, nontender, nondistended, normoactive bowel sounds. No palpable organomegaly. MUSCULOSKELETAL: No joint swelling or deformity. EXTREMITIES: No cyanosis, clubbing, or pedal edema. NEUROLOGICAL: Gross neurological examination did not reveal any focal deficits. SKIN: No rashes. no petechiae. - Labs CBC & Chem 7: 04/11/22 06:44 04/11/22 06:44 Labs: Abnormal Lab Results - Last 24 Hours (Table) 04/10/22 04/10/22 04/11/22 Range/Units 12:34 15:47 06:44 WBC 18.1 H (3.8-10.6) k/uL RBC 3.62 L (3.80-5.40) m/uL Hgb 11.2 L (11.4-16.0) gm/dL Neutrophils # 16.5 H (1.3-7.7) k/uL Lymphocytes # 0.6 L (1.0-4.8) k/uL Sodium (137-145) mmol/L Glucose (74-99) mg/dL Plasma Lactic Acid Clyde 3.5 H* 2.5 H* (0.7-2.0) mmol/L Calcium (8.4-10.2) mg/dL 04/11/22 Range/Units 06:44 WBC (3.8-10.6) k/uL RBC (3.80-5.40) m/uL Hgb (11.4-16.0) gm/dL Neutrophils # (1.3-7.7) k/uL Lymphocytes # (1.0-4.8) k/uL Sodium 136 L (137-145) mmol/L Glucose 117 H (74-99) mg/dL Plasma Lactic Acid Clyde (0.7-2.0) mmol/L Calcium 8.2 L (8.4-10.2) mg/dL Microbiology - Last 24 Hours (Table) 04/10/22 02:00 Blood Culture - Preliminary Blood No Growth after 24 hours 04/10/22 01:50 Blood Culture - Preliminary Blood No Growth after 24 hours Assessment and Plan Assessment: Community acquired pneumonia sepsis with fever, tachypnea and tachycardia Acute hypoxic respiratory failure Hypotension secondary to above COPD Hypertension Hypothyroidism Hyperlipidemia History of migraine History of posterior arthritis Plan: Continue with antibiotics Continue with a bronchodilator and oxygen as needed Pulmonary consult Continue with IV Lasix Check echocardiogram DC midodrine Labs and medication were reviewed.. Continue same treatment. Continue with symptomatic treatment. Resume home medication. Monitor labs and vitals. DVT and GI prophylaxis. Further recommendations as per clinical course of the patient DVT prophylaxis: Subcutaneous Lovenox GI Prophylaxis: Pepcid PT/OT: Pending Prognosis is guarded Cardiology consult
[2022-04-12] MEDS: IPRATROPIUM-ALBUTEROL 3 ML NEB INHALATION SCH ×6 (00:03→21:00)
--- NOTE | 2022-04-12 07:37 | XR ---
EXAMINATION TYPE: XR chest 1V portable DATE OF EXAM: 04/12/2022 6:37 AM COMPARISON: Chest radiograph from two days prior. TECHNIQUE: XR chest 1V portable Portable AP radiograph of the chest. CLINICAL INDICATION:Female, 81 years old with history of shortness of breath; FINDINGS: Lungs/Pleura: No evidence of focal consolidation or pneumothorax. Blunting of the costophrenic angles is present. Pulmonary vascularity: Pulmonary vascular congestion. Heart/mediastinum: Cardiomediastinal silhouette is enlarged and stable. Musculoskeletal: No acute osseous pathology. IMPRESSION: Similar airspace opacities in lung bases which could represent aspiration pneumonia. There is suspect ed superimposed congestive heart failure changes.
[2022-04-12 08:47] LABS: Basophils % (A) 0 %; Eosinophils % (A) 0 %; HCT 37.3 % (34.0-46.0); Lymphocytes # (A) 0.4 k/uL (1.0-4.8); Lymphocytes % (A) 3 %; MCH 31.5 pg (25.0-35.0); MCHC 32.2 g/dL (31.0-37.0); Monocytes # (A) 0.7 k/uL (0-1.0); Monocytes % (A) 5 %; Neutrophils # (A) 13.2 k/uL (1.3-7.7); Neutrophils % (A) 91 %; Platelet Count 213 k/uL (150-450); RBC 3.81 m/uL (3.80-5.40); RDW 13.9 % (11.5-15.5); WBC 14.4 k/uL (3.8-10.6)
[2022-04-12] MEDS: SYMBICORT 160-4.5 MCG INHALER INHALATION SCH ×2 (08:50→21:00)
[2022-04-12 08:58] LABS: African American GFR (CKD) >90 (>60 ml/min/1.73 sqM); Anion Gap 10 mmol/L; Blood Urea Nitrogen 25 mg/dL (7-17); Calcium 8.7 mg/dL (8.4-10.2); Carbon Dioxide 26 mmol/L (22-30); Chloride 104 mmol/L (98-107); Glucose 151 mg/dL (74-99); Non-African American GFR(CKD) 82 (>60 ml/min/1.73 sqM); Potassium 3.7 mmol/L (3.5-5.1); Sodium 140 mmol/L (137-145)
[2022-04-12] MEDS: ENOXAPARIN 40 MG/0.4 ML SYRINGE SQ SCH (09:00)
[2022-04-12] MEDS: AZITHROMYCIN 500 MG in SODIUM CHLORIDE 0.9% 250 ML IVPB SCH (09:00)
[2022-04-12] MEDS: FUROSEMIDE 10 MG/ML 4 ML VIAL IV SCH ×2 (09:00→20:11)
[2022-04-12] MEDS: methylPREDNISolone 4 MG TAB TAPER PO SCH (09:02)
--- NOTE | 2022-04-12 11:45 | P.CRDCN ---
History of Present Illness Consult date: 04/12/22 History of present illness: This is a very pleasant 81-year-old female patient with history of hypertension, hyperlipidemia, mild intermittent chronic bronchial asthma, hypothyroidism, history of melanoma resected from right leg, former smoker 50 years however quit 15 years ago. She is known to have COPD. we're inconstantly see the patient for congestive heart failure. 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 Patient presented to the emergency room with worsening shortness of breath, cough, and congestion. She is having difficulty laying flat in bed. Patient was brought in by EMS and EMS found her to have low O2 saturations and place her on BiPAP. Chest x-ray revealed evidence of pulmonary edema and a new right lower lobe patchy infiltrate. Troponin was negative, White count 14.2. Hemoglobin 13.0. Platelets 229. INR 0.9. Sodium 140. Potassium 4.1. Bicarb 19. BUN 17. Creatinine 0.61. Glucose was 69. Lactic acid 2.4. AST 53, ALT 34. ProBNP 1160. Influenza screen negative. RSV screen negative. COVID-19 screen negative. Patient had an echocardiogram which showed a normal LV function with an ejection fraction 55% and mild to moderate mitral stenosis. Patient is currently on IV Lasix 40 mg every 12 hours. She remains sinus rhythm on the monitor. Review of Systems CONSTITUTIONAL: Denies any recent significant weight loss or weight gain. EYES: Denies change in vision. EARS, NOSE, MOUTH, THROAT: Denies headaches, denies sore throat. CARDIOVASCULAR: Denies chest pain, palpitations or syncopal episodes. RESPIRATORY: Positive for shortness of breath, cough, congestion no hemoptysis. GASTROINTESTINAL: Denies change in appetite, denies abdominal pain GENITOURINARY: Denies hematuria, denies infections. MUSKULOSKELETAL: Denies pain, denies swelling. INTEGUMENTARY: Denies rash, denies eczema. NEUROLOGICAL: Denies recent memory loss, no recent seizure activity. PSYCHIATRIC: Denies anxiety, denies depression. HEMATOLOGIC/LYMPHATIC: Denies anemia, denies enlarged lymph nodes. Past Medical History Past Medical History: Asthma, Cancer, COPD, Eye Disorder, Hyperlipidemia, Hypertension, Osteoarthritis (OA), Respiratory Disorder, Thyroid Disorder Additional Past Medical History / Comment(s): Asthmatic bronchitis, recently received lasix twice d/t breathing difficulty and pedal edema/pt denies chf diagnosis, melanoma removed R leg, diverticular disease, colitis, post menopausal bleeding with eventual hysterectomy, UTI, migraines which stopped after menopause, hypothyroid, bilateral eye glaucoma/bilateral eye stents. History of Any Multi-Drug Resistant Organisms: None Reported Date of last positivie culture/infection: 10/02/21 MDRO Source:: Urine Past Surgical History: Hysterectomy, Joint Replacement, Orthopedic Surgery, Tubal Ligation Additional Past Surgical History / Comment(s): D & Cs, R leg skin cancer (melanoma) removed, L knee arthroscopy and arthroplasty, colonoscopy, bilateral eye cataract removal/stents for glaucoma. Past Anesthesia/Blood Transfusion Reactions: No Reported Reaction Additional Past Anesthesia/Blood Transfusion Reaction / Comment(s): No hx blood transfusion. Smoking Status: Former smoker - Past Family History Mother Family Medical History: Cancer Additional Family Medical History / Comment(s): BREAST CANCER. Sister(s) Family Medical History: Cancer, Deep Vein Thrombosis (DVT) Additional Family Medical History / Comment(s): BREAST CANCER x 2 Father Family Medical History: Cancer Additional Family Medical History / Comment(s): COLON CANCER. Medications and Allergies Home Medications Medication Instructions Recorded Confirmed Type Ibuprofen [Motrin] 200 - 400 mg PO Q6HR PRN 12/21/13 04/10/22 History Lovastatin [Mevacor] 20 mg PO HS 12/21/13 04/10/22 History Cetirizine HCl [Zyrtec] 10 mg PO HS 12/30/17 04/10/22 History diphenhydrAMINE [Benadryl] 25 mg PO HS 12/30/17 04/10/22 History lisinopriL [Zestril] 2.5 mg PO HS 07/19/18 04/10/22 History Levothyroxine Sodium [Synthroid] 50 mcg PO DAILY 09/18/21 04/10/22 History Cholecalciferol [Vitamin D3 (25 50 mcg PO HS 09/29/21 04/10/22 History Mcg = 1000 Iu)] Albuterol Nebulized [Ventolin 2.5 mg INHALATION RT-Q4H PRN 04/10/22 04/10/22 History Nebulized] Albuterol Sulfate [Albuterol 1 puff PO RT-Q4H PRN 04/10/22 04/10/22 History Sulfate Hfa] Budesonide/Glycopyr/Formoterol 2 puff INHALATION RT-BID 04/10/22 04/10/22 History [Breztri Aerosphere Inhaler] Ipratropium Nebulized [Atrovent 0.5 mg INHALATION RT-Q4H PRN 04/10/22 04/10/22 History Nebulized 0.2 MG/ML] Allergies Allergy/AdvReac Type Severity Reaction Status Date / Time No Known Allergies Allergy Verified 04/10/22 08:42 Physical Exam Vitals: Vital Signs Temp Pulse Pulse Resp BP Pulse Ox 04/12/22 11:30 98.0 F 99 18 113/68 98 04/12/22 09:02 88 04/12/22 08:56 98 04/12/22 08:55 97.4 F L 94 18 113/65 99 04/12/22 08:50 82 04/12/22 04:00 97.4 F L 94 18 107/70 95 04/12/22 03:37 92 04/12/22 03:29 97 04/12/22 03:26 89 04/12/22 00:13 92 04/12/22 00:04 92 04/11/22 23:32 97.1 F L 89 18 114/68 96 04/11/22 19:59 97.1 F L 94 20 114/76 98 04/11/22 19:45 92 04/11/22 19:31 96 04/11/22 17:04 96.4 F L 95 20 106/66 97 04/11/22 12:38 92 04/11/22 12:27 88 Intake and Output 04/11/22 04/12/22 04/12/22 22:59 06:59 14:59 Intake Total 128 250 10 Output Total 450 1500 Balance -322 -1250 10 Intake: IV 10 10 10 Invasive Line 2 10 10 10 Oral 118 240 Output: Urine 450 1500 Other: Voiding Method Bedside Commode Bedside Commode Bedside Commode Indwelling Catheter Indwelling Catheter Indwelling Catheter # Voids 1 1 Weight 89.9 kg General: The patient is awake and alert, in no distress, and does not appear acutely ill. Skin: Skin is warm and dry and no rashes or lesions are noted. Eye: Pupils are equal, round and reactive to light, extra-ocular movements are intact; there is normal conjunctiva bilaterally. Ears, nose, mouth and throat: There are moist mucous membranes and no oral lesions. Neck: The neck is supple, there is no tenderness or JVD. Cardiovascular: There is regular rate and rhythm. No murmur, rub or gallop is appreciated. Respiratory: Lungs are clear to auscultation, respirations are non-labored, breath sounds are equal. Gastrointestinal: Soft, non-distended, non-tender abdomen without masses or organomegaly noted. There is no rebound or guarding present. Bowel sounds are unremarkable. Back: There is no tenderness to palpation in the midline. There is no obvious deformity. Musculoskeletal: Normal ROM, no tenderness, There is no pedal edema. There is no calf tenderness or swelling. Extremities: Mild bilateral pitting edema Vascular: Femoral pulse is normal. Posterior tibial pulses are normal .Dorsalis pedis is palpable. Neurological: CN II-XII intact. There are no obvious motor or sensory deficits. Speech is normal. Psychiatric: Cooperative, appropriate mood & affect, normal judgment Results 04/12/22 08:00 04/12/22 08:00 CBC 04/12/22 Range/Units 08:00 WBC 14.4 H (3.8-10.6) k/uL RBC 3.81 (3.80-5.40) m/uL Hgb 12.0 (11.4-16.0) gm/dL Hct 37.3 (34.0-46.0) % Plt Count 213 (150-450) k/uL Comprehensive Metabolic Panel 04/12/22 Range/Units 08:00 Sodium 140 (137-145) mmol/L Potassium 3.7 (3.5-5.1) mmol/L Chloride 104 (98-107) mmol/L Carbon Dioxide 26 (22-30) mmol/L BUN 25 H (7-17) mg/dL Creatinine 0.70 (0.52-1.04) mg/dL Glucose 151 H (74-99) mg/dL Calcium 8.7 (8.4-10.2) mg/dL Current Medications Generic Name Dose Route Start Last Admin Trade Name Freq PRN Reason Stop Dose Admin Acetaminophen 650 mg 04/11/22 11:09 Acetaminophen Tab 325 Mg Tab PO Q6HR PRN Fever and/ or Pain Hydrocodone Bitart/Acetaminophen 1 each 04/11/22 10:45 Hydrocodone/Apap 5-325mg 1 Each Tab PO Q6HR PRN Pain Albuterol Sulfate 5 mg 04/10/22 01:44 04/10/22 02:13 Albuterol Nebulized 2.5 Mg/3 Ml INHALATION 5 mg RT-Q4H PRN Administration Shortness Of Breath Or Wheezing Albuterol/Ipratropium 3 ml 04/10/22 08:00 04/12/22 08:50 Ipratropium-Albuterol 3 Ml Neb INHALATION 3 ml RT-Q4H WALTER Administration Budesonide/Formoterol Fumarate 2 puff 04/10/22 20:00 04/12/22 08:50 Symbicort 160-4.5 Mcg Inhaler INHALATION 2 puff RT-BID WALTER Administration Enoxaparin Sodium 40 mg 04/10/22 09:00 04/12/22 09:00 Enoxaparin 40 Mg/0.4 Ml Syringe SQ 40 mg DAILY WALTER Administration Furosemide 40 mg 04/10/22 09:00 04/12/22 09:00 Furosemide 10 Mg/Ml 4 Ml Vial IV 40 mg Q12HR WALTER Administration Ceftriaxone Sodium 2 gm/ 50 mls @ 100 mls/hr 04/11/22 02:00 04/12/22 02:28 Sodium Chloride IVPB 04/14/22 02:29 100 mls/hr Q24H WALTER Administration Protocol Methylprednisolone 20 mg 04/11/22 09:00 04/12/22 09:02 Methylprednisolone 4 Mg Tab Taper PO 04/17/22 08:59 20 mg DAILY WALTER Administration Taper Miscellaneous Information 1 each 04/10/22 01:44 Pneumonia Protocol Utilized 1 Each Misc PO ONCE PRN Per Protocol Intake and Output 04/11/22 04/12/22 04/12/22 22:59 06:59 14:59 Intake Total 128 250 10 Output Total 450 1500 Balance -322 -1250 10 Intake: IV 10 10 10 Invasive Line 2 10 10 10 Oral 118 240 Output: Urine 450 1500 Other: Voiding Method Bedside Commode Bedside Commode Bedside Commode Indwelling Catheter Indwelling Catheter Indwelling Catheter # Voids 1 1 Weight 89.9 kg 04/12/22 08:00 04/12/22 08:00 Assessment and Plan Assessment: Acute on chronic diastolic congestive heart failure Pneumonia Plan: Continue with IV Lasix 40 mg twice a day, if respiratory status continues to improve Will decrease to daily tomorrow Restart lisinopril 2.5 mg at bedtime When respiratory status improves will consider starting beta jaimie. Continue with telemetry monitoring Further recommendations based on clinical course The above impression and plan of care have been discussed and directed by the signing physician. Jeana Fritz, nurse practitioner, acting as scribe for signing physician.
--- NOTE | 2022-04-12 14:05 | P.PN ---
Subjective Progress Note Date: 04/12/22 Principal diagnosis: Acute hypoxic respiratory failure secondary to acute diastolic congestive heart failure and possibly right lower lobe pneumonia. This is a very pleasant 81-year-old female patient with history of hypertension, hyperlipidemia, mild intermittent chronic bronchial asthma, hypothyroidism, history of melanoma resected from right leg, former smoker 50 years however quit 15 years ago. She is known to have COPD. She presented to the emergency room shortly after midnight today with worsening shortness of breath cough and congestion. She states she did have trouble laying flat in bed. EMS found her to have low O2 saturations and placed her on BiPAP. She was initially on 12/6 and 50% FiO2 and transitioned to oral liters nasal cannula currently saturation is 98%. X-ray revealed evidence of pulmonary edema and a new right lower lobe patchy infiltrate. White count 14.2. Hemoglobin 13.0. Platelets 229. INR 0.9. Sodium 140. Potassium 4.1. Bicarb 19. BUN 17. Creatinine 0.61. Glucose was 69. Lactic acid 2.4. AST 53, ALT 34. ProBNP 1160. Pro-calcitonin 1.62. Influenza screen negative. RSV screen negative. COVID-19 screen negative. She is seen today in the emergency department. Currently sitting up on a stretcher. Awake and alert in no acute distress. Feeling a bit better this morning. She does admit to some yellow blood-tinged sputum. She has been initiated on ceftriaxone and azithromycin. The patient is seen today 04/11/2022 in follow-up on the selective care unit. She is currently sitting up in a chair. Awake and alert in no acute distress. Maintaining good O2 saturations in the 90s on 3 L/m per nasal cannula. Afe brile. Hemodynamically stable. Blood cultures reveal no growth to date. White count 8.1. Hemoglobin 11.2. Sodium 136. Potassium 3.6. BUN 17. Creatinine 0.74. Glucose 117. She is continued on DuoNeb inhalations, Symbicort, albuterol. Remains on antibiotics in the form of ceftriaxone and azithromycin. Continued on IV diuretics. Lovenox for DVT prophylaxis. Remains in negative balance. The patient was reevaluated today on 04/12/2022, patient is feeling better, breathing easier, chest x-ray is also showing improvement. Patient is on 4 L nasal cannula, O2 sats is 98%. Remains on bronchodilators, she is also on Lasix 40 mg every 12 hours, and she is also on antibiotics. Objective - Vital Signs Vital signs: Vital Signs Temp 98.0 F 04/12/22 11:30 Pulse 88 04/12/22 12:12 Resp 18 04/12/22 11:30 BP 113/68 04/12/22 11:30 Pulse Ox 98 04/12/22 11:30 FiO2 50 04/10/22 04:15 Intake & Output 04/11/22 04/12/22 04/12/22 18:59 06:59 18:59 Intake Total 138 260 20 Output Total 1950 Balance 138 -1690 20 Weight 89.9 kg Intake: IV 20 20 20 Invasive Line 2 20 20 20 Oral 118 240 Output: Urine 1950 Other: Voiding Method Bedside Commode Bedside Commode Bedside Commode External Catheter Indwelling Catheter Indwelling Catheter # Voids 1 - Exam Physical Exam: Revealed 81-year-old female in no distress. Head: Atraumatic, normocephalic. HEENT:[Neck is supple.] [No neck masses.] [No thyromegaly.] [No JVD.] Chest: [Very minimal crackles at the bases, no rhonchi and no wheezes Cardiac Exam: [Normal S1 and S2, no S3 gallop, no murmur.] Abdomen: [Soft, nontender, no megaly, no rebound, no guarding, normal bowel sounds.] Extremities: [No clubbing, no edema, no cyanosis.] Neurological Exam: [No focal neurologic deficit.] Alert oriented 3. Psychiatric: Normal mood affect and normal mental status examination. Skin: No rash - Labs CBC & Chem 7: 04/12/22 08:00 04/12/22 08:00 Labs: Abnormal Lab Results - Last 24 Hours (Table) 04/12/22 04/12/22 Range/Units 08:00 08:00 WBC 14.4 H (3.8-10.6) k/uL Neutrophils # 13.2 H (1.3-7.7) k/uL Lymphocytes # 0.4 L (1.0-4.8) k/uL BUN 25 H (7-17) mg/dL Glucose 151 H (74-99) mg/dL Microbiology - Last 24 Hours (Table) 04/10/22 19:59 Gram Stain - Preliminary Sputum Sputum Culture - Preliminary 04/10/22 02:00 Blood Culture - Preliminary Blood No Growth after 48 hours 04/10/22 01:50 Blood Culture - Preliminary Blood No Growth after 48 hours Assessment and Plan Assessment: Impression: Acute hypoxic respiratory failure secondary to acute diastolic congestive heart failure and possibly acute community-acquired pneumonia. Acute exacerbation of COPD secondary to above. [id number] smoking history, quit 15 years ago. History of valvular heart disease, mitral valve stenosis/moderate. Benign essential hypertension. Dyslipidemia. History of melanoma. Recommendation: Continue present treatment plan, Continue antibiotics and diuretics Continue bronchodilators and steroids Clinically the patient is feeling better on the chest x-rays improving Consider discharge planning in the next 48 hours. Time with Patient: Less than 30
--- NOTE | 2022-04-12 14:23 | P.PN ---
Subjective Progress Note Date: 04/12/22 This is a pleasant 81 old female with past medical history of COPD/asthma, hyperlipidemia, hypothyroidism, Osteoarthritis, migraine Her PCP is Dr. Hoffmann and beta tester is Dr. ambrocio. Patient is not on home oxygen Patient presents because of worsening dyspnea more than one week 1 week, also she has cough and phlegms getting worse and is more yellow today. She denies chest pain. She denies any GI or urinary symptoms. No adequate weakness or numbness She quit smoking 15 years ago, occasional alcohol, no illicit drug Patient is febrile on admission 102.3. Blood pressure on the low side on admiss ion currently improved 111/64, patient is mildly tachypneic and tachycardic on admission and she is saturating 95-97% on 4 L oxygen Patient has leukocytosis of 14.2 INR is normal. Lactic acid mildly elevated. BMP and liver enzymes are unremarkable. Troponin is negative and proBNP 1160. Chest x-ray: Possible CHF and possible right lower lobe pneumonia On admission patient received IV fluids and antibiotics with ceftriaxone and Zithromax. Also placed on IV Lasix. 04/11/2022 Patient is awake and alert, sitting in chair, with some tachypnea. Chest discomfort wheezing or crepitation, no significant leg swelling She's afebrile today, still slightly tachypneic and required 4 L/m Leukocytosis is worsened but she is on steroids. Currently continued on Zithromax and ceftriaxone, IV Lasix and Medrol Dosepak. Ejection fraction more than 55% 04/12 patient seen and examined. States she feels better than yesterday. Continues to be on 2 L of oxygen. REVIEW OF SYSTEMS: CONSTITUTIONAL: No fever, no malaise,. CARDIOVASCULAR: No chest pain, no palpitations, no syncope. PULMONARY: Complaining of shortness of breath on exertion GASTROINTESTINAL: No diarrhea, no nausea, no vomiting, no abdominal pain. NEUROLOGICAL: No headaches, no weakness, PHYSICAL EXAMINATION: GENERAL: The patient is alert and oriented x3, not in any acute distress. Well developed, well nourished. HEENT: Pupils are round and equally reacting to light. EOMI. No scleral icterus. No conjunctival pallor. Normocephalic, atraumatic. No pharyngeal erythema. No thyromegaly. CARDIOVASCULAR: S1 and S2 present. No murmurs, rubs, or gallops. PULMONARY: Good air entry bilaterally, bilateral basal crackles audible ABDOMEN: Soft, nontender, nondistended, normoactive bowel sounds. No palpable organomegaly. MUSCULOSKELETAL: No joint swelling or deformity. EXTREMITIES: No cyanosis, clubbing, or pedal edema. NEUROLOGICAL: Gross neurological examination did not reveal any focal deficits. SKIN: No rashes. Assessment and plan Community acquired pneumonia sepsis with fever, tachypnea and tachycardia Acute hypoxic respiratory failure Hypotension secondary to above COPD Hypertension Hypothyroidism Hyperlipidemia History of migraine History of posterior arthritis Plan: Monitor vital signs monitor CBC Continue breathing treatments Continue IV Rocephin Continue IV steroids Continue with IV Lasix 40 mg twice a day Follow-up on 2-D echo Follow-up on pulmonary recommendations Follow-up on cardiology recommendations Objective - Vital Signs Vital signs: Vital Signs Temp 98.0 F 04/12/22 11:30 Pulse 88 04/12/22 12:12 Resp 18 04/12/22 11:30 BP 113/68 04/12/22 11:30 Pulse Ox 98 04/12/22 11:30 FiO2 50 04/10/22 04:15 Intake & Output 04/11/22 04/12/22 04/12/22 18:59 06:59 18:59 Intake Total 138 260 20 Output Total 1950 Balance 138 -1690 20 Weight 89.9 kg Intake: IV 20 20 20 Invasive Line 2 20 20 20 Oral 118 240 Output: Urine 1950 Other: Voiding Method Bedside Commode Bedside Commode Bedside Commode External Catheter Indwelling Catheter Indwelling Catheter # Voids 1 - Labs CBC & Chem 7: 04/12/22 08:00 04/12/22 08:00 Labs: Abnormal Lab Results - Last 24 Hours (Table) 04/12/22 04/12/22 Range/Units 08:00 08:00 WBC 14.4 H (3.8-10.6) k/uL Neutrophils # 13.2 H (1.3-7.7) k/uL Lymphocytes # 0.4 L (1.0-4.8) k/uL BUN 25 H (7-17) mg/dL Glucose 151 H (74-99) mg/dL Microbiology - Last 24 Hours (Table) 04/10/22 19:59 Gram Stain - Preliminary Sputum Sputum Culture - Preliminary 04/10/22 02:00 Blood Culture - Preliminary Blood No Growth after 48 hours 04/10/22 01:50 Blood Culture - Preliminary Blood No Growth after 48 hours
[2022-04-12] MEDS ORDERED: QUEtiapine 25 MG TAB PO PRN (17:58)
[2022-04-13] MEDS: IPRATROPIUM-ALBUTEROL 3 ML NEB INHALATION SCH ×6 (00:20→20:03)
[2022-04-13] MEDS: methylPREDNISolone 4 MG TAB TAPER PO SCH (08:12)
[2022-04-13] MEDS: FUROSEMIDE 10 MG/ML 4 ML VIAL IV SCH (08:12)
[2022-04-13] MEDS: ENOXAPARIN 40 MG/0.4 ML SYRINGE SQ SCH (08:12)
[2022-04-13 08:34] LABS: ALT 52 U/L (4-34); AST 27 U/L (14-36); African American GFR (CKD) >90 (>60 ml/min/1.73 sqM); Albumin 3.5 g/dL (3.5-5.0); Alkaline Phosphatase 67 U/L (38-126); Anion Gap 7 mmol/L; Blood Urea Nitrogen 26 mg/dL (7-17); Calcium 8.6 mg/dL (8.4-10.2); Carbon Dioxide 27 mmol/L (22-30); Chloride 107 mmol/L (98-107); Glucose 142 mg/dL (74-99); Non-African American GFR(CKD) 84 (>60 ml/min/1.73 sqM); Potassium 3.7 mmol/L (3.5-5.1); Sodium 141 mmol/L (137-145); Total Bilirubin 0.6 mg/dL (0.2-1.3); Total Protein 6.5 g/dL (6.3-8.2)
[2022-04-13] MEDS: SYMBICORT 160-4.5 MCG INHALER INHALATION SCH ×2 (08:35→20:04)
[2022-04-13 10:26] LABS: HCT 37.2 % (34.0-46.0); HGB 11.7 gm/dL (11.4-16.0); MCH 31.4 pg (25.0-35.0); MCHC 31.5 g/dL (31.0-37.0); MCV 99.8 fL (80.0-100.0); Mean Platelet Volume 8.1; Platelet Count 231 k/uL (150-450); RBC 3.72 m/uL (3.80-5.40); RDW 14.2 % (11.5-15.5); WBC 11.2 k/uL (3.8-10.6)
[2022-04-13] MEDS ORDERED: MELATONIN 3 MG TABLET PO PRN (10:36)
--- NOTE | 2022-04-13 11:23 | P.PN ---
Subjective Progress Note Date: 04/13/22 Principal diagnosis: Acute hypoxic respiratory failure secondary to acute diastolic congestive heart failure and possibly right lower lobe pneumonia. This is a very pleasant 81-year-old female patient with history of hypertension, hyperlipidemia, mild intermittent chronic bronchial asthma, hypothyroidism, history of melanoma resected from right leg, former smoker 50 years however quit 15 years ago. She is known to have COPD. She presented to the emergency room shortly after midnight today with worsening shortness of breath cough and congestion. She states she did have trouble laying flat in bed. EMS found her to have low O2 saturations and placed her on BiPAP. She was initially on 12/6 and 50% FiO2 and transitioned to oral liters nasal cannula currently saturation is 98%. X-ray revealed evidence of pulmonary edema and a new right lower lobe patchy infiltrate. White count 14.2. Hemoglobin 13.0. Platelets 229. INR 0.9. Sodium 140. Potassium 4.1. Bicarb 19. BUN 17. Creatinine 0.61. Glucose was 69. Lactic acid 2.4. AST 53, ALT 34. ProBNP 1160. Pro-calcitonin 1.62. Influenza screen negative. RSV screen negative. COVID-19 screen negative. She is seen today in the emergency department. Currently sitting up on a stretcher. Awake and alert in no acute distress. Feeling a bit better this morning. She does admit to some yellow blood-tinged sputum. She has been initiated on ceftriaxone and azithromycin. The patient is seen today 04/11/2022 in follow-up on the selective care unit. She is currently sitting up in a chair. Awake and alert in no acute distress. Maintaining good O2 saturations in the 90s on 3 L/m per nasal cannula. Afe brile. Hemodynamically stable. Blood cultures reveal no growth to date. White count 8.1. Hemoglobin 11.2. Sodium 136. Potassium 3.6. BUN 17. Creatinine 0.74. Glucose 117. She is continued on DuoNeb inhalations, Symbicort, albuterol. Remains on antibiotics in the form of ceftriaxone and azithromycin. Continued on IV diuretics. Lovenox for DVT prophylaxis. Remains in negative balance. The patient was reevaluated today on 04/12/2022, patient is feeling better, breathing easier, chest x-ray is also showing improvement. Patient is on 4 L nasal cannula, O2 sats is 98%. Remains on bronchodilators, she is also on Lasix 40 mg every 12 hours, and she is also on antibiotics. Reevaluated today on 04/13/2022, patient is doing well, she has intermittent cough, no shortness of breath, no fever, no chills, no hemoptysis and no chest pain WBC count is 11.2, basic metabolic profile is normal including renal profile. Chest x-ray was ordered to be done tomorrow, and if the chest x-ray shows further improvement, patient could be considered for discharge home Objective - Vital Signs Vital signs: Vital Signs Temp 98.1 F 04/13/22 07:44 Pulse 86 04/13/22 08:46 Resp 18 04/13/22 07:44 BP 109/61 04/13/22 07:44 Pulse Ox 99 04/13/22 08:38 FiO2 50 04/10/22 04:15 Intake & Output 04/12/22 04/13/22 04/13/22 18:59 06:59 18:59 Intake Total 20 560 10 Output Total 300 1800 650 Balance -280 -1240 -640 Weight 89.8 kg Intake: IV 20 20 10 Invasive Line 2 20 20 Invasive Line 3 10 Oral 540 Output: Urine 300 1800 650 Other: Voiding Method Bedside Commode Bedside Commode Bedside Commode Indwelling Catheter Indwelling Catheter Indwelling Catheter # Voids 2 - Exam Physical Exam: Revealed 81-year-old female in no distress. Head: Atraumatic, normocephalic. HEENT:[Neck is supple.] [No neck masses.] [No thyromegaly.] [No JVD.] Chest: [Very minimal crackles at the bases, no rhonchi and no wheezes Cardiac Exam: [Normal S1 and S2, no S3 gallop, no murmur.] Abdomen: [Soft, nontender, no megaly, no rebound, no guarding, normal bowel sounds.] Extremities: [No clubbing, no edema, no cyanosis.] Neurological Exam: [No focal neurologic deficit.] Alert oriented 3. Psychiatric: Normal mood affect and normal mental status examination. Skin: No rash - Labs CBC & Chem 7: 04/13/22 10:11 04/13/22 08:00 Labs: Abnormal Lab Results - Last 24 Hours (Table) 04/13/22 04/13/22 Range/Units 08:00 10:11 WBC 11.2 H (3.8-10.6) k/uL RBC 3.72 L (3.80-5.40) m/uL BUN 26 H (7-17) mg/dL Glucose 142 H (74-99) mg/dL ALT 52 H (4-34) U/L Microbiology - Last 24 Hours (Table) 04/10/22 01:50 Blood Culture - Preliminary Blood No Growth after 72 hours 04/10/22 02:00 Blood Culture - Preliminary Blood No Growth after 72 hours 04/10/22 19:59 Gram Stain - Preliminary Sputum Sputum Culture - Preliminary Assessment and Plan Assessment: Impression: Acute hypoxic respiratory failure secondary to acute diastolic congestive heart failure and possibly acute community-acquired pneumonia. Acute exacerbation of COPD secondary to above. [id number] smoking history, quit 15 years ago. History of valvular heart disease, mitral valve stenosis/moderate. Benign essential hypertension. Dyslipidemia. History of melanoma. Recommendation: Repeat chest x-ray in a.m. Continue present treatment plan, Continue antibiotics and diuretics Continue bronchodilators and steroids Consider discharge planning in the next 24 hours if chest x-ray shows improvement and at least no worsening, clinically the patient is better Time with Patient: Less than 30
--- NOTE | 2022-04-13 11:56 | P.PN ---
Subjective Progress Note Date: 04/13/22 Patient seen resting comfortably in the chair in no signs of acute distress. She continues to use supplemental oxygen. She reports her shortness of breath has greatly improved. She denies chest pain or pressure. Her echocardiogram revealed a normal LV function with an ejection fraction of 55%. There is significant calcification of the mitral valve leaflets with restriction suggestive of mild to moderate mitral stenosis, along with mild mitral and tricuspid insufficiency noted. Will complete further workup for mitral valve stenosis in the outpatient setting if needed. Patient's breathing has improved Will decrease Lasix to 40 mg IV daily. Patient will have a repeat chest x-ray tomorrow chest x-ray continues to improve possible discharge in the next 24 hours Objective - Vital Signs Vital signs: Vital Signs Temp 98.1 F 04/13/22 07:44 Pulse 86 04/13/22 08:46 Resp 18 04/13/22 07:44 BP 109/61 04/13/22 07:44 Pulse Ox 99 04/13/22 08:38 FiO2 50 04/10/22 04:15 Intake & Output 04/12/22 04/13/22 04/13/22 18:59 06:59 18:59 Intake Total 20 560 10 Output Total 300 1800 650 Balance -280 -9991 -640 Weight 89.8 kg Intake: IV 20 20 10 Invasive Line 2 20 20 Invasive Line 3 10 Oral 540 Output: Urine 300 1800 650 Other: Voiding Method Bedside Commode Bedside Commode Bedside Commode Indwelling Catheter Indwelling Catheter Indwelling Catheter # Voids 2 - Exam VITAL SIGNS: Reviewed. GENERAL: Well-developed in no acute distress. HEENT: Head is normocephalic. Pupils are equal, round. Sclerae anicteric. Mucous membranes of the mouth are moist. Neck supple. No JVD or thyromegaly LUNGS: Respirations even and unlabored. Lungs diminished with mild expiratory wheezing on supplemental oxygen HEART: regular rate and rhythm. S1 and S2 heard. ABDOMEN: Soft. Nondistended. Nontender. EXTREMITIES: Normal range of motion. No clubbing or cyanosis. Peripheral pulses intact. No lower extremity edema NEUROLOGIC: Awake and alert. Oriented x 3. - Labs CBC & Chem 7: 04/13/22 10:11 04/13/22 08:00 Labs: Abnormal Lab Results - Last 24 Hours (Table) 04/13/22 04/13/22 Range/Units 08:00 10:11 WBC 11.2 H (3.8-10.6) k/uL RBC 3.72 L (3.80-5.40) m/uL BUN 26 H (7-17) mg/dL Glucose 142 H (74-99) mg/dL ALT 52 H (4-34) U/L Microbiology - Last 24 Hours (Table) 04/10/22 01:50 Blood Culture - Preliminary Blood No Growth after 72 hours 04/10/22 02:00 Blood Culture - Preliminary Blood No Growth after 72 hours 04/10/22 19:59 Gram Stain - Preliminary Sputum Sputum Culture - Preliminary Assessment and Plan Assessment: Acute on chronic diastolic congestive heart failure Mild to moderate mitral stenosis with mild mitral insufficiency Pneumonia Plan: Decrease IV Lasix to daily Echocardiogram obtained and reviewed, if further workup necessary will continue mitral valve assessment in the outpatient setting Continue with all other current cardiac medications When respiratory status improves will consider starting beta jaimie. Continue with telemetry monitoring Possible discharge in the next 24 hours Further recommendations based on clinical course The above impression and plan of care have been discussed and directed by the signing physician. Jeana Fritz, nurse practitioner, acting as scribe for signing physician.
--- NOTE | 2022-04-13 12:44 | P.PN ---
Subjective Progress Note Date: 04/13/22 This is a pleasant 81 old female with past medical history of COPD/asthma, hyperlipidemia, hypothyroidism, Osteoarthritis, migraine Her PCP is Dr. Hoffmann and supervisor vacuum metalizing is Dr. ambrocio. Patient is not on home oxygen Patient presents because of worsening dyspnea more than one week 1 week, also she has cough and phlegms getting worse and is more yellow today. She denies chest pain. She denies any GI or urinary symptoms. No adequate weakness or numbness She quit smoking 15 years ago, occasional alcohol, no illicit drug Patient is febrile on admission 102.3. Blood pressure on the low side on admiss ion currently improved 111/64, patient is mildly tachypneic and tachycardic on admission and she is saturating 95-97% on 4 L oxygen Patient has leukocytosis of 14.2 INR is normal. Lactic acid mildly elevated. BMP and liver enzymes are unremarkable. Troponin is negative and proBNP 1160. Chest x-ray: Possible CHF and possible right lower lobe pneumonia On admission patient received IV fluids and antibiotics with ceftriaxone and Zithromax. Also placed on IV Lasix. 04/11/2022 Patient is awake and alert, sitting in chair, with some tachypnea. Chest discomfort wheezing or crepitation, no significant leg swelling She's afebrile today, still slightly tachypneic and required 4 L/m Leukocytosis is worsened but she is on steroids. Currently continued on Zithromax and ceftriaxone, IV Lasix and Medrol Dosepak. Ejection fraction more than 55% 04/12 patient seen and examined. States she feels better than yesterday. Continues to be on 2 L of oxygen. 04/13. Patient examined. Patient had episode of confusion this morning, receives Seroquel overnight could be secondary to that. Currently she is alert and oriented, states breathing is improving REVIEW OF SYSTEMS: CONSTITUTIONAL: No fever, no malaise,. CARDIOVASCULAR: No chest pain, no palpitations, no syncope. PULMONARY: Complaining of shortness of breath on exertion GASTROINTESTINAL: No diarrhea, no nausea, no vomiting, no abdominal pain. NEUROLOGICAL: No headaches, no weakness, PHYSICAL EXAMINATION: GENERAL: The patient is alert and oriented x3, not in any acute distress. Well developed, well nourished. HEENT: Pupils are round and equally reacting to light. EOMI. No scleral icterus. No conjunctival pallor. Normocephalic, atraumatic. No pharyngeal erythema. No thyromegaly. CARDIOVASCULAR: S1 and S2 present. No murmurs, rubs, or gallops. PULMONARY: Good air entry bilaterally, bilateral basal crackles audible ABDOMEN: Soft, nontender, nondistended, normoactive bowel sounds. No palpable organomegaly. MUSCULOSKELETAL: No joint swelling or deformity. EXTREMITIES: No cyanosis, clubbing, or pedal edema. NEUROLOGICAL: Gross neurological examination did not reveal any focal deficits. SKIN: No rashes. Assessment and plan Community acquired pneumonia sepsis with fever, tachypnea and tachycardia Acute hypoxic respiratory failure Mild to moderate mitral stenosis with mild mitral insufficiency Hypotension secondary to above COPD Hypertension Hypothyroidism Hyperlipidemia History of migraine History of posterior arthritis Plan: Monitor vital signs monitor CBC Continue breathing treatments Continue IV Rocephin Continue IV steroids Repeat chest x-ray ordered for tomorrow morning Decrease Lasix to 40 mg daily Results of 2-D echo noted, Follow-up on pulmonary recommendations Follow-up on cardiology recommendations Objective - Vital Signs Vital signs: Vital Signs Temp 97.9 F 04/13/22 11:45 Pulse 84 04/13/22 12:28 Resp 18 04/13/22 11:45 BP 119/70 04/13/22 11:45 Pulse Ox 93 L 04/13/22 11:45 FiO2 50 04/10/22 04:15 Intake & Output 04/12/22 04/13/22 04/13/22 18:59 06:59 18:59 Intake Total 20 560 10 Output Total 300 1800 650 Balance -280 -1240 -640 Weight 89.8 kg Intake: IV 20 20 10 Invasive Line 2 20 20 Invasive Line 3 10 Oral 540 Output: Urine 300 1800 650 Other: Voiding Method Bedside Commode Bedside Commode Bedside Commode Indwelling Catheter Indwelling Catheter Indwelling Catheter # Voids 2 - Labs CBC & Chem 7: 04/13/22 10:11 04/13/22 08:00 Labs: Abnormal Lab Results - Last 24 Hours (Table) 04/13/22 04/13/22 Range/Units 08:00 10:11 WBC 11.2 H (3.8-10.6) k/uL RBC 3.72 L (3.80-5.40) m/uL BUN 26 H (7-17) mg/dL Glucose 142 H (74-99) mg/dL ALT 52 H (4-34) U/L Microbiology - Last 24 Hours (Table) 04/10/22 01:50 Blood Culture - Preliminary Blood No Growth after 72 hours 04/10/22 02:00 Blood Culture - Preliminary Blood No Growth after 72 hours 04/10/22 19:59 Gram Stain - Preliminary Sputum Sputum Culture - Preliminary
[2022-04-14] MEDS: IPRATROPIUM-ALBUTEROL 3 ML NEB INHALATION SCH ×4 (00:04→11:38)
[2022-04-14 06:49] LABS: HCT 35.7 % (34.0-46.0); HGB 11.2 gm/dL (11.4-16.0); MCHC 31.3 g/dL (31.0-37.0); Mean Platelet Volume 8.9; Platelet Count 226 k/uL (150-450); RDW 13.7 % (11.5-15.5); WBC 12.3 k/uL (3.8-10.6)
[2022-04-14 07:07] LABS: ALT 45 U/L (4-34); AST 25 U/L (14-36); African American GFR (CKD) >90 (>60 ml/min/1.73 sqM); Albumin 3.4 g/dL (3.5-5.0); Alkaline Phosphatase 63 U/L (38-126); Anion Gap 8 mmol/L; Blood Urea Nitrogen 23 mg/dL (7-17); Calcium 8.9 mg/dL (8.4-10.2); Carbon Dioxide 33 mmol/L (22-30); Chloride 101 mmol/L (98-107); Glucose 142 mg/dL (74-99); Non-African American GFR(CKD) 84 (>60 ml/min/1.73 sqM); Potassium 3.5 mmol/L (3.5-5.1); Sodium 142 mmol/L (137-145); Total Bilirubin 0.5 mg/dL (0.2-1.3); Total Protein 6.3 g/dL (6.3-8.2)
--- NOTE | 2022-04-14 07:16 | XR ---
EXAMINATION TYPE: XR chest 1V portable DATE OF EXAM: 04/14/2022 6:47 AM COMPARISON: Chest radiographs from 04/12/2022 TECHNIQUE: XR chest 1V portable Portable AP radiograph of the chest. CLINICAL INDICATION:Female, 81 years old with history of chf/pneumonia; FINDINGS: Lungs/Pleura: Bibasilar patchy airspace opacities. Increased right midlung airspace opacities. Blunti ng of the left costophrenic angle. No pneumothorax. Pulmonary vascularity: Pulmonary vascular congestion. Heart/mediastinum: Cardiomediastinal silhouette is enlarged and stable. Musculoskeletal: No acute osseous pathology. IMPRESSION: Redemonstration airspace opacities lung bases with pulmonary vascular congestion and persistent cardi omegaly. Increased right midlung airspace opacities.This may represent pneumonia with superimposed CH F exacerbation.
[2022-04-14] MEDS: SYMBICORT 160-4.5 MCG INHALER INHALATION SCH (08:09)
[2022-04-14] MEDS: ENOXAPARIN 40 MG/0.4 ML SYRINGE SQ SCH (08:46)
[2022-04-14] MEDS: methylPREDNISolone 4 MG TAB TAPER PO SCH (08:46)
[2022-04-14] MEDS ORDERED: FUROSEMIDE 10 MG/ML 4 ML VIAL IV SCH (09:00)
--- NOTE | 2022-04-14 10:55 | P.PN ---
Subjective Progress Note Date: 04/14/22 This is a very pleasant 81-year-old female patient with history of hypertension, hyperlipidemia, mild intermittent chronic bronchial asthma, hypothyroidism, history of melanoma resected from right leg, former smoker 50 years however quit 15 years ago. She is known to have COPD. She presented to the emergency room shortly after midnight today with worsening shortness of breath cough and congestion. She states she did have trouble laying flat in bed. EMS found her to have low O2 saturations and placed her on BiPAP. She was initially on 12/6 and 50% FiO2 and transitioned to oral liters nasal cannula currently saturation is 98%. X-ray revealed evidence of pulmonary edema and a new right lower lobe patchy infiltrate. White count 14.2. Hemoglobin 13.0. Platelets 229. INR 0.9. Sodium 140. Potassium 4.1. Bicarb 19. BUN 17. Creatinine 0.61. Glucose was 69. Lactic acid 2.4. AST 53, ALT 34. ProBNP 1160. Pro-calcitonin 1.62. Influenza screen negative. RSV screen negative. COVID-19 screen negative. She is seen today in the emergency department. Currently sitting up on a stretcher. Awake and alert in no acute distress. Feeling a bit better this morning. She does admit to some yellow blood-tinged sputum. She has been initiated on ceftriaxone and azithromycin. The patient is seen today 04/11/2022 in follow-up on the selective care unit. She is currently sitting up in a chair. Awake and alert in no acute distress. Maintaining good O2 saturations in the 90s on 3 L/m per nasal cannula. Afebrile. Hemodynamically stable. Blood cultures reveal no growth to date. Wh ite count 8.1. Hemoglobin 11.2. Sodium 136. Potassium 3.6. BUN 17. Creatinine 0.74. Glucose 117. She is continued on DuoNeb inhalations, Symbicort, albuterol. Remains on antibiotics in the form of ceftriaxone and azithromycin. Continued on IV diuretics. Lovenox for DVT prophylaxis. Remains in negative balance. The patient is seen today 04/14/2022 in follow-up on the selective care unit. She is currently sitting up in a chair at the bedside. Awake and alert in no acute distress. Maintaining good O2 saturations in the 90s on 2 L/m per nasal cannula. Denies any worsening shortness of breath, cough or congestion. She's been maintained on Symbicort, albuterol, Medrol Dosepak. Lovenox for DVT prophylaxis. Remains on IV diuretics. No accurate I&O recorded. Chest x-ray reveals airspace opacities with pulmonary vascular congestion and persistent cardiomegaly. Blood cultures revealed no growth. Sputum culture positive for gram-negative bacilli. Urine culture pending. White count 12.3. Hemoglobin 11.2. Sodium 142. Potassium 3.5. BUN 23. Creatinine 0.65. Glucose 142. Objective - Vital Signs Vital signs: Vital Signs Temp 98.2 F 04/14/22 04:00 Pulse 88 04/14/22 08:27 Resp 16 04/14/22 04:00 BP 126/70 04/14/22 04:00 Pulse Ox 94 L 04/14/22 04:00 FiO2 50 04/10/22 04:15 Intake & Output 04/13/22 04/14/22 04/14/22 18:59 06:59 18:59 Intake Total 20 20 0 Output Total 650 Balance -630 20 0 Intake: IV 20 20 Invasive Line 3 20 20 Oral 0 Output: Urine 650 Other: Voiding Method Bedside Commode Bedside Commode Indwelling Catheter Indwelling Catheter # Voids 2 - Exam GENERAL EXAM: Alert, 81-year-old female, on 2 L nasal cannula, up in a chair, comfortable in no apparent distress. HEAD: Normocephalic. EYES: Normal reaction of pupils, equal size. NOSE: Clear with pink turbinates. THROAT: No erythema or exudates. NECK: No masses, no JVD. CHEST: No chest wall deformity. LUNGS: Equal air entry with crackles in the bilateral bases right greater than left. CVS: S1 and S2 normal with audible murmur, regular rhythm. ABDOMEN: No hepatosplenomegaly, normal bowel sounds, no guarding or rigidity. SPINE: No scoliosis or deformity SKIN: No rashes CENTRAL NERVOUS SYSTEM: No focal deficits, tone is normal in all 4 extremities. EXTREMITIES: There is no peripheral edema. No clubbing, no cyanosis. Peripheral pulses are intact. - Labs CBC & Chem 7: 04/14/22 05:54 04/14/22 05:54 Labs: Abnormal Lab Results - Last 24 Hours (Table) 04/14/22 04/14/22 Range/Units 05:54 05:54 WBC 12.3 H (3.8-10.6) k/uL RBC 3.60 L (3.80-5.40) m/uL Hgb 11.2 L (11.4-16.0) gm/dL Carbon Dioxide 33 H (22-30) mmol/L BUN 23 H (7-17) mg/dL Glucose 142 H (74-99) mg/dL ALT 45 H (4-34) U/L Albumin 3.4 L (3.5-5.0) g/dL Microbiology - Last 24 Hours (Table) 04/10/22 02:00 Blood Culture - Preliminary Blood No Growth after 96 hours 04/10/22 01:50 Blood Culture - Preliminary Blood No Growth after 96 hours 04/13/22 12:55 Urine Culture - Preliminary Urine,Clean Catch 04/10/22 19:59 Gram Stain - Preliminary Sputum Sputum Culture - Preliminary Gram Neg Bacilli Assessment and Plan Assessment: Acute hypoxemic respiratory failure secondary to an acute exacerbation of diastolic congestive heart failure and possible early right lower lobe pneumonia and chest x-ray reveals evidence of pulmonary edema and some right lower lobe infiltrate. ProBNP 1160. Moderate mitral stenosis. ProCalcitonin 1.62. Continued on IV diuretics. Sputum culture now showing gram-negative bacilli. Completed ceftriaxone and azithromycin. Acute exacerbation of chronic obstructive pulmonary disease secondary to above History of 50 years of smoking however quit 15 years ago History of moderate mitral stenosis and severe annular calcification Hypertension Hyperlipidemia Hypothyroidism History of melanoma, resected from right lower extremity Plan: The patient was seen and evaluated Chest x-ray, labs and medications reviewed Sputum culture positive for gram-negative bacilli Initiate Levaquin 500 mg daily for 7 days Continue bronchodilators, steroids Titrate the FiO2 as tolerated Evaluated for home oxygen Cleared for discharge from the pulmonary standpoint Follow up closely in our office in 1 week I have personally seen and examined the patient, performed the documentation and the assessment and plan as written. Number of minutes spent on the visit: 10.
[2022-04-14] MEDS ORDERED: LEVOFLOXACIN 500 MG TAB PO SCH (11:00)
[2022-04-14 11:12] VITALS: RESP 18
--- NOTE | 2022-04-14 11:35 | P.DS ---
Providers Date of admission: 04/10/22 01:46 Expected date of discharge: 04/14/22 Attending physician: Enoch Mcdonnell Consults: 04/10/22 01:44 Consult Physician Routine Consulting Provider: Seng Hurd Consult Reason/Comments: known Do you want consulting provider notified?: Yes 04/11/22 10:45 Consult Physician Routine Consulting Provider: Jovanni Turner Consult Reason/Comments: possilbe chf Do you want consulting provider notified?: Yes Primary care physician: Gisele Hoffmann Hospital Course: Discharge diagnoses; Community acquired pneumonia sepsis with fever, tachypnea and tachycardia Acute hypoxic respiratory failure Mild to moderate mitral stenosis with mild mitral insufficiency Hypotension secondary to above COPD Hypertension Hypothyroidism Hyperlipidemia History of migraine Hospital course; This is a pleasant 81 old female with past medical history of COPD/asthma, hyperlipidemia, hypothyroidism, Osteoarthritis, migraine Her PCP is Dr. Hoffmann and foam rubber fabricator is Dr. hurd. Patient is not on home oxygen Patient presents because of worsening dyspnea more than one week 1 week, also she has cough and phlegms getting worse and is more yellow today. She denies chest pain. She denies any GI or urinary symptoms. No adequate weakness or numbness She quit smoking 15 years ago, occasional alcohol, no illicit drug Patient is febrile on admission 102.3. Blood pressure on the low side on admission currently improved 111/64, patient is mildly tachypneic and tachycardic on admission and she is saturating 95-97% on 4 L oxygen Patient has leukocytosis of 14.2 INR is normal. Lactic acid mildly elevated. BMP and liver enzymes are unremarkable. Troponin is negative and proBNP 1160. Chest x-ray: Possible CHF and possible right lower lobe pneumonia On admission patient received IV fluids and antibiotics with ceftriaxone and Zithromax. Also placed on IV Lasix. 04/11/2022 Patient is awake and alert, sitting in chair, with some tachypnea. Chest discomfort wheezing or crepitation, no significant leg swelling She's afebrile today, still slightly tachypneic and required 4 L/m Leukocytosis is worsened but she is on steroids. Currently continued on Zithromax and ceftriaxone, IV Lasix and Medrol Dosepak. Ejection fraction more than 55% 04/12 patient seen and examined. States she feels better than yesterday. Continues to be on 2 L of oxygen. 04/13. Patient examined. Patient had episode of confusion this morning, receives Seroquel overnight could be secondary to that. Currently she is alert and oriented, states breathing is improving 04/14. Patient seen and examined. States she is doing much better, not requiring any oxygen. Being discharged on Levaquin, steroids and Lasix. Outpatient follow-up with cardiology and PCP PHYSICAL EXAMINATION: GENERAL: The patient is alert and oriented x3, not in any acute distress. Well developed, well nourished. HEENT: Pupils are round and equally reacting to light. EOMI. No scleral icterus. No conjunctival pallor. Normocephalic, atraumatic. No pharyngeal erythema. No thyromegaly. CARDIOVASCULAR: S1 and S2 present. No murmurs, rubs, or gallops. PULMONARY: Chest is clear to auscultation, no wheezing or crackles. ABDOMEN: Soft, nontender, nondistended, normoactive bowel sounds. No palpable organomegaly. MUSCULOSKELETAL: No joint swelling or deformity. EXTREMITIES: No cyanosis, clubbing, or pedal edema. NEUROLOGICAL: Gross neurological examination did not reveal any focal deficits. SKIN: No rashes. Patient Condition at Discharge: Good Plan - Discharge Summary Discharge Rx Participant: No New Discharge Prescriptions: New methylPREDNISolone Dose Pack [Medrol Dose Pack] 4 mg PO DIRECTED #1 packet Budesonide-Formot 160-4.5 Mcg [Symbicort 160-4.5 Mcg Inhaler] 2 puff INHALATION RT-BID #1 each Furosemide [Lasix] 20 mg PO DAILY #30 tab Levofloxacin [Levaquin] 500 mg PO Q24H #7 tab Continue Ibuprofen [Motrin] 200 - 400 mg PO Q6HR PRN PRN Reason: Pain Lovastatin [Mevacor] 20 mg PO HS diphenhydrAMINE [Benadryl] 25 mg PO HS Cetirizine HCl [Zyrtec] 10 mg PO HS lisinopriL [Zestril] 2.5 mg PO HS Levothyroxine Sodium [Synthroid] 50 mcg PO DAILY Cholecalciferol [Vitamin D3 (25 Mcg = 1000 Iu)] 50 mcg PO HS Albuterol Nebulized [Ventolin Nebulized] 2.5 mg INHALATION RT-Q4H PRN PRN Reason: Shortness Of Breath Albuterol Sulfate [Albuterol Sulfate Hfa] 1 puff PO RT-Q4H PRN PRN Reason: Shortness Of Breath Budesonide/Glycopyr/Formoterol [Breztri Aerosphere Inhaler] 2 puff INHALATION RT-BID Ipratropium Nebulized [Atrovent Nebulized 0.2 MG/ML] 0.5 mg INHALATION RT-Q4H PRN PRN Reason: Shortness Of Breath Discharge Medication List Ibuprofen [Motrin] 200 - 400 mg PO Q6HR PRN 12/21/13 [History] Lovastatin [Mevacor] 20 mg PO HS 12/21/13 [History] Cetirizine HCl [Zyrtec] 10 mg PO HS 12/30/17 [History] diphenhydrAMINE [Benadryl] 25 mg PO HS 12/30/17 [History] lisinopriL [Zestril] 2.5 mg PO HS 07/19/18 [History] Levothyroxine Sodium [Synthroid] 50 mcg PO DAILY 09/18/21 [History] Cholecalciferol [Vitamin D3 (25 Mcg = 1000 Iu)] 50 mcg PO HS 09/29/21 [History] Albuterol Nebulized [Ventolin Nebulized] 2.5 mg INHALATION RT-Q4H PRN 04/10/22 [History] Albuterol Sulfate [Albuterol Sulfate Hfa] 1 puff PO RT-Q4H PRN 04/10/22 [History] Budesonide/Glycopyr/Formoterol [Breztri Aerosphere Inhaler] 2 puff INHALATION RT-BID 04/10/22 [History] Ipratropium Nebulized [Atrovent Nebulized 0.2 MG/ML] 0.5 mg INHALATION RT-Q4H PRN 04/10/22 [History] Budesonide-Formot 160-4.5 Mcg [Symbicort 160-4.5 Mcg Inhaler] 2 puff INHALATION RT-BID #1 each 04/14/22 [Rx] Furosemide [Lasix] 20 mg PO DAILY #30 tab 04/14/22 [Rx] Levofloxacin [Levaquin] 500 mg PO Q24H #7 tab 04/14/22 [Rx] methylPREDNISolone Dose Pack [Medrol Dose Pack] 4 mg PO DIRECTED #1 packet 01/16/23 [Rx] Follow up Appointment(s)/Referral(s): Gisele Hoffmann DO [Primary Care Provider] - 1-2 days Seng Hurd DO [Doctor of Osteopathic Medicine] - 1 Week [facility], [NON-STAFF] - Jovanni Turner MD [STAFF PHYSICIAN] - 1 Week
--- NOTE | 2022-04-14 12:20 | P.PN ---
Subjective Progress Note Date: 04/14/22 History of present illness: This is 81-year-old female patient with history of hypertension, hyperlipidemia, mild intermittent chronic bronchial asthma, hypothyroidism, history of melanoma resected from right leg, former smoker 50 years however quit 15 years ago. She is known to have COPD. we're inconstantly see the patient for congestive heart failure. Patient does not follow with a portable trackman. Patient presented to the emergency room with worsening shortness of breath, cough, and congestion. She is having difficulty laying flat in bed. Patient was brought in by EMS and EMS found her to have low O2 saturations and place her on BiPAP. Chest x-ray revealed evidence of pulmonary edema and a new right lower lobe patchy infiltrate. Troponin was negative, White count 14.2. Hemoglobin 13.0. Platelets 229. INR 0.9. Sodium 140. Potassium 4.1. Bicarb 19. BUN 17. Creatinine 0.61. Glucose was 69. Lactic acid 2.4. AST 53, ALT 34. ProBNP 1160. Influenza screen negative. RSV screen negative. COVID-19 screen negative. Patient had an echocardiogram which showed a normal LV function with an ejection fraction 55% and mild to moderate mitral stenosis. Patient is currently on IV Lasix 40 mg every 12 hours. She remains sinus rhythm on the monitor. 04/14 Patient is seen today on the cardiac stepdown unit. Patient is having some wheezing today but denies significant shortness of breath. Her main concern is that she is not sleeping here she has been on IV Lasix 40 mg daily which may be transitioned to oral for discharge. Heart rate is in the 80s, blood pressure 119/69, pulse ox 93% on room air. monitoring specialist is sinus rhythm. Repeat blood work reveals hemoglobin 11.2, potassium 3.5, BUN 23 creatinine 0.65. Physical examination: Gen: This is a an obese 81-year-old female. She is resting in bed and appears to be comfortable. VS: reviewed HEENT: Head is atraumatic, normocephalic. Pupils equal, round. Sclerae is anicteric. NECK: Supple. No JVD. No lymphadenopathy. No thyromegaly. LUNGS: Bilateral wheezing. No intercostal retractions. HEART: Regular rate and rhythm. No murmur. ABDOMEN: Soft. Bowel sounds are present. No masses. No tenderness. EXTREMITIES: No pedal edema. No calf tenderness. NEUROLOGICAL: Patient is awake, alert and oriented x3. Cranial nerves 2 through 12 are grossly intact. Assessment: Acute on chronic diastolic heart failure Pneumonia Mild to moderate mitral stenosis with mild mitral insufficiency Hyperkeratotic hyperlipidemia Plan: Patient is cleared for discharge from cardiology. Continue current cardiac medications, transition IV Lasix to oral. Thank you kindly for this consultation. Nurse practitioner note has been reviewed, I agree with documented findings and plan of care. Patient was seen and examined. Objective - Vital Signs Vital signs: Vital Signs Temp 98.2 F 04/14/22 04:00 Pulse 96 04/14/22 04:00 Resp 16 04/14/22 04:00 BP 126/70 04/14/22 04:00 Pulse Ox 94 L 04/14/22 04:00 FiO2 50 04/10/22 04:15 Intake & Output 04/13/22 04/14/22 04/14/22 18:59 06:59 18:59 Intake Total 20 20 Output Total 650 Balance -630 20 Intake: IV 20 20 Invasive Line 3 20 20 Output: Urine 650 Other: Voiding Method Bedside Commode Bedside Commode Indwelling Catheter Indwelling Catheter # Voids 2 - Labs CBC & Chem 7: 04/14/22 05:54 04/14/22 05:54 Labs: Abnormal Lab Results - Last 24 Hours (Table) 04/13/22 04/13/22 04/14/22 Range/Units 08:00 10:11 05:54 WBC 11.2 H 12.3 H (3.8-10.6) k/uL RBC 3.72 L 3.60 L (3.80-5.40) m/uL Hgb 11.2 L (11.4-16.0) gm/dL Carbon Dioxide (22-30) mmol/L BUN 26 H (7-17) mg/dL Glucose 142 H (74-99) mg/dL ALT 52 H (4-34) U/L Albumin (3.5-5.0) g/dL 04/14/22 Range/Units 05:54 WBC (3.8-10.6) k/uL RBC (3.80-5.40) m/uL Hgb (11.4-16.0) gm/dL Carbon Dioxide 33 H (22-30) mmol/L BUN 23 H (7-17) mg/dL Glucose 142 H (74-99) mg/dL ALT 45 H (4-34) U/L Albumin 3.4 L (3.5-5.0) g/dL Microbiology - Last 24 Hours (Table) 04/10/22 02:00 Blood Culture - Preliminary Blood No Growth after 96 hours 04/10/22 01:50 Blood Culture - Preliminary Blood No Growth after 96 hours 04/13/22 12:55 Urine Culture - Preliminary Urine,Clean Catch 04/10/22 19:59 Gram Stain - Preliminary Sputum Sputum Culture - Preliminary Gram Neg Bacilli
[2022-04-14 13:24] VITALS: BP 132/78; PULSE 85; TEMP 98.2
== END 2022-04-14 13:10 | disposition home or self-care (01) | DRG 871 ==
LOC: EC 00:23 → 4SSUR 01:46 → 3SCARD 03:53
PROVIDERS: ADMIT Hospitalist; ATTEND Hospitalist
PROC: 5A09357 Assistance with Respiratory Ventilation, Less than 24 Consecutive Hours, Continuous Positive Airway Pressure (ICD-10-PCS; principal; 2022-04-10)
DX: A41.9 Sepsis, unspecified organism (principal); I50.33 Acute on chronic diastolic (congestive) heart failure; J18.9 Pneumonia, unspecified organism; J96.01 Acute respiratory failure with hypoxia; J44.1 Chronic obstructive pulmonary disease with (acute) exacerbation; J44.0 Chronic obstructive pulmonary disease with (acute) lower respiratory infection; J45.902 Unspecified asthma with status asthmaticus; I11.0 Hypertensive heart disease with heart failure; Z20.822 Contact with and (suspected) exposure to COVID-19; E03.9 Hypothyroidism, unspecified; E78.5 Hyperlipidemia, unspecified; H40.9 Unspecified glaucoma; G43.909 Migraine, unspecified, not intractable, without status migrainosus; M19.90 Unspecified osteoarthritis, unspecified site; Z79.890 Hormone replacement therapy; F41.9 Anxiety disorder, unspecified; J40 Bronchitis, not specified as acute or chronic; K52.9 Noninfective gastroenteritis and colitis, unspecified; K57.90 Diverticulosis of intestine, part unspecified, without perforation or abscess without bleeding; Z78.0 Asymptomatic menopausal state; I08.1 Rheumatic disorders of both mitral and tricuspid valves; Z79.899 Other long term (current) drug therapy; Z85.820 Personal history of malignant melanoma of skin; Z87.891 Personal history of nicotine dependence; Z80.3 Family history of malignant neoplasm of breast; Z80.0 Family history of malignant neoplasm of digestive organs; Z90.710 Acquired absence of both cervix and uterus; Z98.42 Cataract extraction status, left eye; Z98.41 Cataract extraction status, right eye; Z98.51 Tubal ligation status; Z96.652 Presence of left artificial knee joint; Z87.440 Personal history of urinary (tract) infections
CPT/HCPCS: 36415; 71045; 80048; 80053; 83605; 83735; 83880; 84145; 84484; 85025; 85027; 85610; 85730; 87040; 87070; 87077; 87086; 87186; 87205; 87636; 93005; 93306; 94640; 94760; 96361; 96365; 96366; 96368; 96372; 96375; 99291

== ENCOUNTER → 2022-08-14 | Outpatient (CLI) | payer MEDICARE ==
--- NOTE | 2022-08-15 07:18 | MM ---
Reason for Exam: Screening (asymptomatic). Last screening mammogram was performed 12 month(s) ago. Patient History: Menarche at age 16. First Full-Term at age 24. Hysterectomy at age 80. Postmenopausal. Patient has history of breast feeding. Currently using Progesterone. Sister had breast cancer, age 40. Nephew/Niece (marcella) had breast cancer, age 52. Mother had breast cancer, age 35. Risk Values: Enedelia 5 year model risk: 6.0%. NCI Lifetime model risk: 8.5%. Prior Study Comparison: 11/10/2017 Screening Mammogram, [facility]. 05/17/2020 Bilateral Screening Mammogram, [facility]. 07/31/2021 Bilateral Screening Mammogram, [facility]. Tissue Density: There are scattered fibroglandular densities. Findings: Analyzed By CAD. A few tiny benign-appearing round calcifications scattered throughout the bilateral breasts are redemonstrated. There is no suspicious group of microcalcifications or new suspicious mass in either breast. Overall Assessment: Benign, BI-RAD 2 Management: Screening Mammogram of both breasts in 1 year. . Patient should continue monthly self-breast exams. A clinical breast exam by your physician is recommended on an annual basis. This exam should not preclude additional follow-up of suspicious palpable abnormalities. Note on Enedelia scores and lifetime risk: 1. A Enedelia score greater than 3% is considered moderate risk. If this is the case, consider specialist referral to assess eligibility for a risk reducing agent. 2. If overall lifetime risk for the development of breast cancer is 20% or higher, the patient may qualify for future screening with alternating mammogram and breast MRI. Electronically signed and approved by: Ernie Mancia M.D.
== END | disposition home or self-care (01) ==
LOC: RADMAMWWP 13:10
PROVIDERS: ATTEND Family Medicine
DX: Z12.31 Encounter for screening mammogram for malignant neoplasm of breast (principal); Z80.3 Family history of malignant neoplasm of breast; Z78.0 Asymptomatic menopausal state
CPT/HCPCS: 77063; 77067